=== PATIENT | male | born 1930 | race Caucasian/White ===

== ENCOUNTER 2018-03-29 11:01 | Emergency (ER) | payer MEDICARE ==
[2018-03-29 11:15] VITALS: TEMP 98.5
--- NOTE | 2018-03-29 11:46 | ED ---
General Adult HPI - General Chief complaint: Shortness of Breath Stated complaint: Possible pneumonia Time Seen by Provider: 03/29/18 11:10 Source: patient, RN notes reviewed Mode of arrival: wheelchair Limitations: no limitations - History of Present Illness Initial comments: This is an 87-year-old male presents emergency department with severe dementia his caregiver gives all the history. Patient has history of COPD. Caregiver states that he has been coughing since Thursday and there is been no sputum production. Patient is not short of breath but occasionally she does hear him wheeze. She states she's not complained of any pain. There's been no fever chills. Aside from a cough which is dry cough the caregiver states the patient is acting at his baseline. - Related Data Home Medications Medication Instructions Recorded Confirmed Aspirin 81 mg PO DAILY 12/08/15 03/29/18 Cholecalciferol [Vitamin D3] 5,000 unit PO DAILY 12/08/15 03/29/18 Cyanocobalamin [Vitamin B-12] 1,000 mcg PO DAILY 12/08/15 03/29/18 Isosorbide Mononitrate [Isosorbide 30 mg PO DAILY 12/08/15 03/29/18 Mononitrate ER] Memantine [Namenda] 10 mg PO BID 12/08/15 03/29/18 Vit C/E/Zn/Coppr/Lutein/Zeaxan 1 cap PO DAILY 12/08/15 03/29/18 [Preservision Areds 2 Softgel] Ferrous Sulfate [Iron (65 MG 325 mg PO DAILY 10/10/16 03/29/18 Elemental)] Atorvastatin [Lipitor] 40 mg PO DAILY 03/29/18 03/29/18 Budesonide [Pulmicort] 0.5 mg INHALATION RT-BID 03/29/18 03/29/18 Clotrimazole Cream [Lotrimin Cream] 1 applic TOPICAL BID 03/29/18 03/29/18 Formoterol Fumarate [Perforomist] 20 mcg INHALATION RT-BID 03/29/18 03/29/18 Ipratropium-Albuterol Nebulize 3 ml INHALATION RT-QID PRN 03/29/18 03/29/18 [Duoneb 0.5 mg-3 mg/3 ml Soln] amLODIPine [Norvasc] 5 mg PO DAILY 03/29/18 03/29/18 Previous Rx's Medication Instructions Recorded Tamsulosin [Flomax] 0.4 mg PO DAILY #30 cap 10/11/16 ALPRAZolam [Xanax] 0.25 mg PO BID PRN #30 tablet 10/29/16 Azithromycin [Zithromax Tri-Krunal] 500 mg PO DAILY #3 tab 03/29/18 Allergies Allergy/AdvReac Type Severity Reaction Status Date / Time No Known Allergies Allergy Verified 03/29/18 11:25 Review of Systems ROS Statement: Those systems with pertinent positive or pertinent negative responses have been documented in the HPI. ROS Other: All systems not noted in ROS Statement are negative. Past Medical History Past Medical History: COPD, CVA/TIA, Dementia, GERD/Reflux, Hyperlipidemia, Hypertension, Myocardial Infarction ([place]) Additional Past Medical History / Comment(s): dementia diagnosed 2014, acute renal failure , e cloi in blood 12-08-15(per micro) Last Myocardial Infarction Date:: 2000 History of Any Multi-Drug Resistant Organisms: None Reported Past Surgical History: Coronary Bypass/CABG, Hernia Repair Additional Past Surgical History / Comment(s): heart surgery in 2001, lt ear titanium implant, lt scalp skin lesion removed wed-no result on it yet Past Anesthesia/Blood Transfusion Reactions: No Reported Reaction Past Psychological History: No Psychological Hx Reported Smoking Status: Former smoker Past Alcohol Use History: None Reported Past Drug Use History: None Reported - Past Family History Father Family Medical History: Congestive Heart Failure (CHF) Mother Family Medical History: Pneumonia Additional Family Medical History / Comment(s): mom lived to be age 94 from complications of pne General Exam - General Exam Comments Initial Comments: GENERAL: Patient is well-developed and well-nourished. Patient is nontoxic and well- hydrated and is in no acute distress. ENT: Neck is soft and supple. No significant lymphadenopathy is noted. Oropharynx is clear. Moist mucous membranes. Neck has full range of motion without eliciting any pain. EYES: The sclera were anicteric and conjunctiva were pink and moist. Extraocular movements were intact and pupils were equal round and reactive to light. Eyelids were unremarkable. PULMONARY: Unlabored respirations. Good breath sounds bilaterally. No audible rales rhonchi or wheezing was noted. CARDIOVASCULAR: There is a regular rate and rhythm without any murmurs gallops or rubs. ABDOMEN: Soft and nontender with normal bowel sounds. No palpable organomegaly was noted. There is no palpable pulsatile mass. SKIN: Skin is clear with no lesions or rashes and otherwise unremarkable. NEUROLOGIC: Patient is alert and oriented times one. Cranial nerves II through XII are grossly intact. Motor and sensory are also intact. Normal speech, volume and content. Symmetrical smile. MUSCULOSKELETAL: Normal extremities with adequate strength and full range of motion. No lower extremity swelling or edema. No calf tenderness. LYMPHATICS: No significant lymphadenopathy is noted Limitations: no limitations Course Vital Signs 03/29/18 11:10 Temperature 98.5 F Pulse Rate 90 Respiratory 22 Rate Blood Pressure 99/56 O2 Sat by Pulse 93 L Oximetry Medical Decision Making - Medical Decision Making EKG shows a wide complex rhythm at 74 bpm QRS is 136 QT interval 38 QTC is 4: 30. Patient's EKG has a right bundle branch block. I compared to an old EKG there are no acute changes noted. Chest x-ray shows no acute abnormality and reviewed this x-ray with Dr. Wise. Review the patient gram of María. Since patient on Zithromax. - Lab Data Result diagrams: 03/29/18 12:05 03/29/18 12:05 Lab Results 03/29/18 03/29/18 Range/Units 12:05 12:05 WBC 9.7 (3.8-10.6) k/uL RBC 4.43 (4.30-5.90) m/uL Hgb 14.0 (13.0-17.5) gm/dL Hct 42.0 (39.0-53.0) % MCV 94.8 (80.0-100.0) fL MCH 31.5 (25.0-35.0) pg MCHC 33.2 (31.0-37.0) g/dL RDW 13.1 (11.5-15.5) % Plt Count 119 L (150-450) k/uL Neutrophils % 85 % Lymphocytes % 6 % Monocytes % 8 % Eosinophils % 1 % Basophils % 0 % Neutrophils # 8.3 H (1.3-7.7) k/uL Lymphocytes # 0.5 L (1.0-4.8) k/uL Monocytes # 0.7 (0-1.0) k/uL Eosinophils # 0.1 (0-0.7) k/uL Basophils # 0.0 (0-0.2) k/uL Sodium 147 H (137-145) mmol/L Potassium 3.8 (3.5-5.1) mmol/L Chloride 108 H (98-107) mmol/L Carbon Dioxide 27 (22-30) mmol/L Anion Gap 12 mmol/L BUN 27 H (9-20) mg/dL Creatinine 1.00 (0.66-1.25) mg/dL Est GFR (CKD-EPI)AfAm 77 (>60 ml/min/1.73 sqM) Est GFR (CKD-EPI)NonAf 67 (>60 ml/min/1.73 sqM) Glucose 137 H (74-99) mg/dL Calcium 8.9 (8.4-10.2) mg/dL Total Bilirubin 0.9 (0.2-1.3) mg/dL AST 31 (17-59) U/L ALT 37 (21-72) U/L Alkaline Phosphatase 93 (38-126) U/L Total Protein 5.6 L (6.3-8.2) g/dL Albumin 3.4 L (3.5-5.0) g/dL Disposition Clinical Impression: Acute bronchitis Disposition: HOME SELF-CARE Instructions: Acute Bronchitis (ED) Prescriptions: Azithromycin [Zithromax Tri-Krunal] 500 mg PO DAILY #3 tab Is patient prescribed a controlled substance at d/c from ED?: No Referrals: Martín Vanessa MD [Primary Care Provider] - 1-2 days Time of Disposition: 13:16
[2018-03-29 12:26] LABS: Basophils % (A) 0 %; Eosinophils # (A) 0.1 k/uL (0-0.7); Eosinophils % (A) 1 %; Lymphocytes # (A) 0.5 k/uL (1.0-4.8); Lymphocytes % (A) 6 %; MCH 31.5 pg (25.0-35.0); MCHC 33.2 g/dL (31.0-37.0); MCV 94.8 fL (80.0-100.0); Monocytes # (A) 0.7 k/uL (0-1.0); Monocytes % (A) 8 %; Neutrophils # (A) 8.3 k/uL (1.3-7.7); Neutrophils % (A) 85 %; Platelet Count 119 k/uL (150-450); RBC 4.43 m/uL (4.30-5.90); RDW 13.1 % (11.5-15.5); WBC 9.7 k/uL (3.8-10.6)
--- NOTE | 2018-03-29 12:33 | XR ---
EXAMINATION TYPE: XR chest 2V DATE OF EXAM: 03/29/2018 COMPARISON: 10/27/2016 HISTORY: Cough and wheezing with concern for pneumonia TECHNIQUE: Frontal and lateral views of the chest are obtained. FINDINGS: There is pulmonary hyperinflation and biapical lucency relating to underlying COPD. Enlarg ement of the main pulmonary arteries is suggestive of underlying pulmonary hypertension. Post CABG ch anges are seen the chest without cardiomegaly. Strand-like linear opacity within the right infrahilar region is slightly more pronounced on the prior exam of 10/27/2016 and could represent atelectasis or early developing pneumonia. No confluent consolidation. Generalized osseous demineralization is pres ent. IMPRESSION: Patchy right infrahilar density, new from the comparison of 2016, concerning for early d eveloping pneumonia. Background extensive emphysema and findings suggesting underlying pulmonary frederick rial hypertension are noted.
[2018-03-29 12:37] LABS: Albumin 3.4 g/dL (3.5-5.0); Potassium 3.8 mmol/L (3.5-5.1); Total Protein 5.6 g/dL (6.3-8.2)
[2018-03-29 12:39] LABS: Calcium 8.9 mg/dL (8.4-10.2); Total Bilirubin 0.9 mg/dL (0.2-1.3)
[2018-03-29] MEDS ORDERED: cefTRIAXone IN SWFI 1,000 MG/10 ML SYRINGE IVP STA (13:17)
[2018-03-29 13:39] VITALS: BP 121/67; PULSE 84
[2018-03-29 14:04] VITALS: RESP 16
== END 2018-03-29 13:42 | disposition home or self-care (01) ==
LOC: EC 11:01
DX: J20.9 Acute bronchitis, unspecified (principal); J44.0 Chronic obstructive pulmonary disease with (acute) lower respiratory infection; J44.9 Chronic obstructive pulmonary disease, unspecified; I45.10 Unspecified right bundle-branch block; F03.90 Unspecified dementia, unspecified severity, without behavioral disturbance, psychotic disturbance, mood disturbance, and anxiety; E78.5 Hyperlipidemia, unspecified; I10 Essential (primary) hypertension; I25.10 Atherosclerotic heart disease of native coronary artery without angina pectoris; Z86.73 Personal history of transient ischemic attack (TIA), and cerebral infarction without residual deficits; Z95.1 Presence of aortocoronary bypass graft; Z79.51 Long term (current) use of inhaled steroids; Z79.82 Long term (current) use of aspirin; Z79.899 Other long term (current) drug therapy; Z87.891 Personal history of nicotine dependence
CPT/HCPCS: 99285; 96374; 36415; 93005; 80053; 85025; 71046; J0696

== ENCOUNTER 2018-09-16 20:33 | Inpatient (IN) | payer MEDICARE ==
--- NOTE | 2018-09-16 21:53 | ED ---
General Adult HPI - General Chief complaint: Shortness of Breath Stated complaint: SANCHEZ,hip pain Time Seen by Provider: 09/16/18 21:29 Source: patient Mode of arrival: EMS Limitations: altered mental status (Dementia) - History of Present Illness Initial comments: This patient is an 87-year-old man with history of moderately severe dementia, coming to be evaluated after he had a fall tonight. The history is from the patient's , who states that he had gotten up and then fallen onto his right side and then was not able to walk due to right hip pain. She does not believe he had any other injury. The patient does indicate pain to the right hip. He is denying other pains. At the initial history and physical exam he declines analgesics. When asked, the patient's only complaint is that he is feeling a little short of breath. They state that he has history of emphysema and possibly some fibrosis and that he does see Dr. Sheppard. Onset/Timin -: hour(s) Location: right, lower extremity Quality: aching Consistency: constant Improves with: immobilization Worsens with: movement Associated Symptoms: denies other symptoms Treatments Prior to Arrival: none - Related Data Home Medications Medication Instructions Recorded Confirmed Aspirin 81 mg PO DAILY 12/08/15 09/16/18 Cyanocobalamin [Vitamin B-12] 1,000 mcg PO DAILY 12/08/15 09/16/18 Isosorbide Mononitrate [Isosorbide 30 mg PO DAILY 12/08/15 09/16/18 Mononitrate ER] Memantine [Namenda] 10 mg PO BID 12/08/15 09/16/18 Vit C/E/Zn/Coppr/Lutein/Zeaxan 1 cap PO DAILY 12/08/15 09/16/18 [Preservision Areds 2 Softgel] Ferrous Sulfate [Iron (65 MG 325 mg PO DAILY 10/10/16 09/16/18 Elemental)] Atorvastatin [Lipitor] 40 mg PO DAILY 03/29/18 09/16/18 Budesonide [Pulmicort] 0.5 mg INHALATION RT-BID 03/29/18 09/16/18 Clotrimazole Cream [Lotrimin Cream] 1 applic TOPICAL BID 03/29/18 09/16/18 Formoterol Fumarate [Perforomist] 20 mcg INHALATION RT-BID 03/29/18 09/16/18 Ipratropium-Albuterol Nebulize 3 ml INHALATION RT-QID PRN 03/29/18 09/16/18 [Duoneb 0.5 mg-3 mg/3 ml Soln] amLODIPine [Norvasc] 5 mg PO DAILY 03/29/18 09/16/18 Previous Rx's Medication Instructions Recorded Tamsulosin [Flomax] 0.4 mg PO DAILY #30 cap 10/11/16 Allergies Allergy/AdvReac Type Severity Reaction Status Date / Time No Known Allergies Allergy Verified 09/16/18 22:11 Review of Systems ROS Statement: Those systems with pertinent positive or pertinent negative responses have been documented in the HPI. ROS Other: All systems not noted in ROS Statement are negative. Limitations: ROS unobtainable due to patients medical condition (Dementia) Constitutional: Denies: fever Respiratory: Reports: dyspnea. Denies: cough, wheezes, hemoptysis Cardiovascular: Denies: chest pain, syncope Gastrointestinal: Denies: abdominal pain, vomiting, diarrhea Genitourinary: Denies: dysuria Musculoskeletal: Reports: arthralgia (Right hip pain). Denies: back pain Skin: Denies: rash Neurological: Denies: headache, weakness Past Medical History Past Medical History: COPD, CVA/TIA, Dementia, GERD/Reflux, Hyperlipidemia, Hypertension, Myocardial Infarction ([place]) Additional Past Medical History / Comment(s): dementia diagnosed 2014, acute renal failure , e cloi in blood 12-08-15(per micro) Last Myocardial Infarction Date:: 2000 History of Any Multi-Drug Resistant Organisms: None Reported Past Surgical History: Coronary Bypass/CABG, Hernia Repair Additional Past Surgical History / Comment(s): heart surgery in 2001, lt ear titanium implant, lt scalp skin lesion removed wed-no result on it yet Past Anesthesia/Blood Transfusion Reactions: No Reported Reaction Past Psychological History: No Psychological Hx Reported Smoking Status: Former smoker Past Alcohol Use History: None Reported Past Drug Use History: None Reported - Past Family History Father Family Medical History: Congestive Heart Failure (CHF) Mother Family Medical History: Pneumonia Additional Family Medical History / Comment(s): mom lived to be age 94 from complications of pne General Exam Limitations: altered mental status, physical limitation General appearance: alert, in no apparent distress Head exam: Present: atraumatic, normocephalic Eye exam: Present: normal appearance, PERRL, EOMI. Absent: scleral icterus, conjunctival injection ENT exam: Present: normal oropharynx Neck exam: Present: normal inspection, full ROM. Absent: tenderness Respiratory exam: Present: respiratory distress (Mild tachypnea), wheezes, decreased breath sounds. Absent: rales, rhonchi, stridor, chest wall tenderness , accessory muscle use Cardiovascular Exam: Present: regular rate, normal rhythm, normal heart sounds. Absent: systolic murmur, diastolic murmur, rubs, gallop GI/Abdominal exam: Present: soft. Absent: distended, tenderness, guarding, rebound, rigid, mass Extremities exam: Present: normal inspection, tenderness (Right hip), normal capillary refill. Absent: full ROM (Patient declining to move the right hip), pedal edema, calf tenderness Back exam: Absent: CVA tenderness (R), CVA tenderness (L), vertebral tenderness Neurological exam: Present: alert. Absent: motor sensory deficit Skin exam: Present: warm, dry, intact, normal color. Absent: rash Course Vital Signs 09/16/18 09/16/18 09/16/18 21:16 21:22 22:29 Temperature 97.6 F Pulse Rate 103 H 104 H Respiratory 26 H 26 H 18 Rate Blood Pressure 171/89 O2 Sat by Pulse 94 L Oximetry 09/16/18 22:35 Temperature Pulse Rate 107 H Respiratory 18 Rate Blood Pressure O2 Sat by Pulse Oximetry EKG Findings - EKG Results: EKG: interpreted by ERMD, sinus rhythm (With PVCs, rate 103) EKG shows: tachycardia - Blocks, [place], Hypertrophy, ST Abn: AV and intraventricular conduction: right bundle branch block (fixed/ intermittent, complete/incomplete) - MO, Pacemaker, Normal: Myocardial infarction: inferior MO (old age indeterminate) Medical Decision Making - Medical Decision Making This patient is an 87-year-old man brought for evaluation after fall. He had a low mechanism injury, ground-level fall with no other apparent trauma. He does have isolated subcapital femoral neck fracture of the right hip. Patient be admitted with orthopedics consult also with pulmonology consult given his underlying lung disease. - Lab Data Result diagrams: 09/16/18 21:11 Lab Results 09/16/18 Range/Units 21:11 WBC 9.7 (3.8-10.6) k/uL RBC 4.23 L (4.30-5.90) m/uL Hgb 13.4 (13.0-17.5) gm/dL Hct 41.1 (39.0-53.0) % MCV 97.1 (80.0-100.0) fL MCH 31.7 (25.0-35.0) pg MCHC 32.6 (31.0-37.0) g/dL RDW 13.6 (11.5-15.5) % Plt Count 109 L (150-450) k/uL Neutrophils % 85 % Lymphocytes % 7 % Monocytes % 6 % Eosinophils % 1 % Basophils % 0 % Neutrophils # 8.3 H (1.3-7.7) k/uL Lymphocytes # 0.7 L (1.0-4.8) k/uL Monocytes # 0.5 (0-1.0) k/uL Eosinophils # 0.1 (0-0.7) k/uL Basophils # 0.0 (0-0.2) k/uL Disposition Clinical Impression: Acute exacerbation of chronic obstructive airways disease, Closed right hip fracture Disposition: ADMITTED IP TO THIS HOSP Condition: Poor Referrals: Seth Sheppard DO [Primary Care Provider] - 1-2 days
[2018-09-16] MEDS ORDERED: ALBUTEROL NEBULIZED 2.5 MG/3 ML INHALATION STA (22:20)
--- NOTE | 2018-09-16 22:23 | XR ---
EXAMINATION TYPE: XR chest 2V DATE OF EXAM: 09/16/2018 COMPARISON: 03/29/2018 HISTORY: Difficulty breathing TECHNIQUE: Frontal and lateral views of the chest are obtained. FINDINGS: There is no heart failure nor confluent pneumonic infiltrate. There is slight coarsening o f interstitial markings. There are sternal wires. There are chest leads. There is no evidence of pleu ral effusion. IMPRESSION: COPD and pulmonary fibrosis. No acute lung disease. No change.
--- NOTE | 2018-09-16 22:24 | XR ---
EXAMINATION TYPE: XR Hip Complete RT DATE OF EXAM: 09/16/2018 COMPARISON: NONE HISTORY: Fall. Pain TECHNIQUE: 2 views FINDINGS: There is nondisplaced slightly impacted subcapital fracture right femur. There is no disloc ation. Acetabulum appears intact. IMPRESSION: Acute subcapital fracture right femur.
[2018-09-16] MEDS ORDERED: MORPHINE SULFATE 4 MG/ML SYRINGE IV PRN (22:41)
[2018-09-16] MEDS ORDERED: NALOXONE 0.4 MG/ML 1 ML VIAL IV PRN (22:41)
[2018-09-16 22:44] LABS: Basophils % (A) 0 %; Eosinophils # (A) 0.1 k/uL (0-0.7); Eosinophils % (A) 1 %; HCT 41.1 % (39.0-53.0); HGB 13.4 gm/dL (13.0-17.5); Lymphocytes # (A) 0.7 k/uL (1.0-4.8); Lymphocytes % (A) 7 %; MCH 31.7 pg (25.0-35.0); MCHC 32.6 g/dL (31.0-37.0); MCV 97.1 fL (80.0-100.0); Mean Platelet Volume 8.5; Monocytes # (A) 0.5 k/uL (0-1.0); Monocytes % (A) 6 %; Neutrophils # (A) 8.3 k/uL (1.3-7.7); Neutrophils % (A) 85 %; Platelet Count 109 k/uL (150-450); RBC 4.23 m/uL (4.30-5.90); RDW 13.6 % (11.5-15.5); WBC 9.7 k/uL (3.8-10.6)
[2018-09-16 22:54] LABS: Calcium 7.6 mg/dL (8.4-10.2); Potassium 3.8 mmol/L (3.5-5.1); Total Bilirubin 0.6 mg/dL (0.2-1.3); Total Protein 5.3 g/dL (6.3-8.2)
[2018-09-16 22:59] LABS: INR 1.2 (<1.2); Partial Thromboplastin Time 23.4 sec (22.0-30.0); Prothrombin Time 11.8 sec (9.0-12.0)
[2018-09-16] MEDS: SODIUM CHLORIDE 0.9% 1,000 ML IV SCH (22:59)
[2018-09-16 23:03] LABS: Creatine Kinase 165 U/L (55-170)
[2018-09-16 23:16] LABS: Creatine Kinase MB 3.3 ng/mL (0.0-2.4); Troponin I <0.012 ng/mL (0.000-0.034)
[2018-09-17] MEDS: ACETAMINOPHEN TAB 325 MG TAB PO PRN ×3 (00:02→18:06)
[2018-09-17 01:11] LABS: Appearance,Urine Clear (Clear); Bilirubin,Urine Negative (Negative); Blood,Urine Large (Negative); Color,Urine Yellow; Glucose,Urine (UA) Negative (Negative); Ketones,Urine 1+ (Negative); Leukocyte Esterase,Urine Negative (Negative); Mucus,Urine Rare /hpf; Nitrite,Urine Negative (Negative); PH, Urine 5.5 (5.0-8.0); Protein,Urine Trace (Negative); RBC,Urine >182 /hpf (0-5); Specific Gravity,Urine 1.017 (1.001-1.035); Urobilinogen,Urine <2.0 mg/dL (<2.0)
[2018-09-17] MEDS: FORMOTEROL FUMARATE 20 MCG/2 ML NEBU INHALATION SCH ×2 (07:16→20:05)
[2018-09-17] MEDS: BUDESONIDE 0.5 MG/2 ML NEBU INHALATION SCH ×2 (07:16→20:05)
[2018-09-17] MEDS: IPRATROPIUM-ALBUTEROL 3 ML NEB INHALATION PRN ×4 (07:16→21:04)
[2018-09-17] MEDS ORDERED: amLODIPine 5 MG TAB PO SCH (09:00)
--- NOTE | 2018-09-17 09:25 | CT ---
EXAMINATION TYPE: CT hip RT wo con DATE OF EXAM: 09/17/2018 COMPARISON: 09/16/2018 x-ray HISTORY: Known hip fracture, assess for displacement for preop CT DLP: 247.3 mGycm Automated exposure control for dose reduction was used. FINDINGS: There is a nondisplaced subcapital fracture of the right hip. There is some rotation of the femoral h ead in relation to the neck. No additional fractures are evident. Large fecal bolus is noted at the rectum. IMPRESSION: 1. SUBCAPITAL FRACTURE RIGHT HIP. 2. SOME ROTATION OF THE FEMORAL HEAD IN RELATION TO THE FEMORAL NECK.
[2018-09-17] MEDS: ASPIRIN 81 MG PO SCH (09:38)
[2018-09-17] MEDS: ATORVASTATIN 40 MG TAB PO SCH (09:38)
[2018-09-17] MEDS: MEMANTINE 10 MG TAB PO SCH ×2 (09:39→20:33)
[2018-09-17] MEDS: FAMOTIDINE 20 MG TAB PO SCH ×2 (09:39→20:32)
[2018-09-17] MEDS: TAMSULOSIN 0.4 MG CAP.ER.24H PO SCH (09:39)
[2018-09-17] MEDS: CYANOCOBALAMIN 500 MCG TAB PO SCH (09:39)
[2018-09-17] MEDS: ISOSORBIDE MONONITRATE ER 30 MG TAB.ER.24H PO SCH (09:39)
[2018-09-17] MEDS: FERROUS SULFATE 325 MG TAB PO SCH (09:39)
[2018-09-17 10:12] VITALS: BMI 17.5
--- NOTE | 2018-09-17 10:54 | P.CNOR ---
History of Present Illness - HPI Consult date: 09/17/18 Requesting physician: Mitul Anglin Consult reason: fracture History of present illness: Patient is an 87-year-old male seen at bedside this morning. He has a known history of moderately severe dementia. He apparently fell yesterday on his right hip. He is not very cooperative during the interview today. He does not believe he has a hip fracture which was seen on x-rays taken while in the emergency department. He does acknowledge he has right hip pain. He denies radicular symptoms including numbness or tingling. He has no other complaints. Review of Systems All systems: negative Constitutional: Denies chills, Denies fever Eyes: denies blurred vision, denies pain Ears, nose, mouth and throat: Denies headache, Denies sore throat Cardiovascular: Denies chest pain, Denies shortness of breath Respiratory: Denies cough Gastrointestinal: Denies abdominal pain, Denies diarrhea, Denies nausea, Denies vomiting Musculoskeletal: Denies myalgias Integumentary: Denies pruritus, Denies rash Neurological: Denies numbness, Denies weakness Psychiatric: Denies anxiety, Denies depression Endocrine: Denies fatigue, Denies weight change Past Medical History Past Medical History: COPD, CVA/TIA, Dementia, GERD/Reflux, Hyperlipidemia, Hypertension, Myocardial Infarction ([place]) Additional Past Medical History / Comment(s): dementia diagnosed 2014, acute renal failure , e cloi in blood 12-08-15, sepsis(per micro) Last Myocardial Infarction Date:: 2000 History of Any Multi-Drug Resistant Organisms: None Reported Past Surgical History: Coronary Bypass/CABG, Hernia Repair Additional Past Surgical History / Comment(s): heart surgery in 2001, lt ear titanium implant, lt scalp skin lesion removed wed-no result on it yet, four hernia repair Past Anesthesia/Blood Transfusion Reactions: No Reported Reaction Past Psychological History: No Psychological Hx Reported Smoking Status: Former smoker Past Alcohol Use History: None Reported Additional Past Alcohol Use History / Comment(s): smoked x 50 years, 1 ppd, quit 2000 Past Drug Use History: None Reported - Past Family History Father Family Medical History: Congestive Heart Failure (CHF) Mother Family Medical History: Pneumonia Additional Family Medical History / Comment(s): mom lived to be age 94 from complications of pne Medications and Allergies Home Medications Medication Instructions Recorded Confirmed Type Aspirin 81 mg PO DAILY 12/08/15 09/16/18 History Cyanocobalamin [Vitamin B-12] 1,000 mcg PO DAILY 12/08/15 09/16/18 History Isosorbide Mononitrate [Isosorbide 30 mg PO DAILY 12/08/15 09/16/18 History Mononitrate ER] Memantine [Namenda] 10 mg PO BID 12/08/15 09/16/18 History Vit C/E/Zn/Coppr/Lutein/Zeaxan 1 cap PO DAILY 12/08/15 09/16/18 History [Preservision Areds 2 Softgel] Ferrous Sulfate [Iron (65 MG 325 mg PO DAILY 10/10/16 09/16/18 History Elemental)] Tamsulosin [Flomax] 0.4 mg PO DAILY #30 cap 10/11/16 09/16/18 Rx Atorvastatin [Lipitor] 40 mg PO DAILY 03/29/18 09/16/18 History Budesonide [Pulmicort] 0.5 mg INHALATION RT-BID 03/29/18 09/16/18 History Clotrimazole Cream [Lotrimin Cream] 1 applic TOPICAL BID 03/29/18 09/16/18 History Formoterol Fumarate [Perforomist] 20 mcg INHALATION RT-BID 03/29/18 09/16/18 History Ipratropium-Albuterol Nebulize 3 ml INHALATION RT-QID PRN 03/29/18 09/16/18 History [Duoneb 0.5 mg-3 mg/3 ml Soln] amLODIPine [Norvasc] 5 mg PO DAILY 03/29/18 09/16/18 History Allergies Allergy/AdvReac Type Severity Reaction Status Date / Time No Known Allergies Allergy Verified 09/16/18 22:11 Physical Examination During the examination this morning he is agitated. He does not desire for me to inspect his right hip. Distally it appears benign with no wounds or lacerations. Range of motion of the right hip is not tested. Motor and sensation appears to be grossly intact throughout the right lower extremity. Calf is soft and nontender. 2+ dorsalis pedis pulse and less than 2 second capillary refill is present. Results X-rays of the pelvis and right hip show a subcapital impacted right femur fracture. - Labs Labs: Abnormal Lab Results - Last 24 Hours (Table) 09/16/18 09/16/18 09/16/18 Range/Units 21:11 21:11 21:11 RBC 4.23 L (4.30-5.90) m/uL Plt Count 109 L (150-450) k/uL Neutrophils # 8.3 H (1.3-7.7) k/uL Lymphocytes # 0.7 L (1.0-4.8) k/uL INR (<1.2) Chloride 112 H (98-107) mmol/L BUN 25 H (9-20) mg/dL Glucose 100 H (74-99) mg/dL Calcium 7.6 L (8.4-10.2) mg/dL CK-MB (CK-2) 3.3 H (0.0-2.4) ng/mL Total Protein 5.3 L (6.3-8.2) g/dL Albumin 3.0 L (3.5-5.0) g/dL Urine Protein (Negative) Urine Ketones (Negative) Urine Blood (Negative) Urine RBC (0-5) /hpf Urine Mucus (None) /hpf 09/16/18 09/17/18 Range/Units 21:11 00:57 RBC (4.30-5.90) m/uL Plt Count (150-450) k/uL Neutrophils # (1.3-7.7) k/uL Lymphocytes # (1.0-4.8) k/uL INR 1.2 H (<1.2) Chloride (98-107) mmol/L BUN (9-20) mg/dL Glucose (74-99) mg/dL Calcium (8.4-10.2) mg/dL CK-MB (CK-2) (0.0-2.4) ng/mL Total Protein (6.3-8.2) g/dL Albumin (3.5-5.0) g/dL Urine Protein Trace H (Negative) Urine Ketones 1+ H (Negative) Urine Blood Large H (Negative) Urine RBC >182 H (0-5) /hpf Urine Mucus Rare H (None) /hpf H & H 09/16/18 Range/Units 21:11 Hgb 13.4 (13.0-17.5) gm/dL Hct 41.1 (39.0-53.0) % Coagulation 09/16/18 Range/Units 21:11 INR 1.2 H (<1.2) Result Diagrams: 09/16/18 21:11 09/16/18 21:11 Assessment and Plan (1) Closed right hip fracture Narrative/Plan: Patient has a subcapital femur fracture on the right which will require either percutaneous pinning versus hemiarthroplasty based on CT findings which are pending. He will also need medical clearance and consent from power of litigation attorney as he has dementia and fairly uncooperative. Patient will be reviewed with Dr. Anglin and further recommendations will be made as appropriate. Current Visit: Yes Status: Acute Code(s): S72.001A - FRACTURE OF UNSP PART OF NECK OF RIGHT FEMUR, INIT SNOMED Code(s): 107341308 Time with Patient: Less than 30
--- NOTE | 2018-09-17 12:19 | P.HPIM ---
History of Present Illness This is a pleasant 87 years old female with past medical history of COPD, CVA/ TIA, dementia, GERD, hyperlipidemia, essential hypertension, coronary artery disease, status post CABG who follows up with Dr. Sarmiento., who presents with fall with hip fracture. Also patient noted to have hematuria. Patient is poor historian and could not provide history even at baseline. However his more agitated. Patient could not provide information so it was taken up from the medical staff and at bedside. As per patient has baseline dementia and sometimes he can recognize the and sometimes not. However he can ask for his wound and cleaning himself and actually he can do these things by himself and yesterday he was walking to the living room when the heard him fall. She came to the room and he was fully awake but he could not movement was complaining of pain is his right hip area. So she called the doctor and brought him to the emergency room. When he found he has a right hip fracture, associated with hematuria. As per patient was following up with Dr. Vaughn urologist before for urinary retention but he did not have hematuria before. Medications are reviewed including Tylenol 650 mg Dunob 0.5-3 mg, aspirin 81 mg , Norvasc 5 mg, Pulmicort 0.5 mg, clotrimazole cream, vitamin B12 1000 g, Pepcid 20 mg, ferrous sulfate 325 mg, formoterol 20 g, Imdur 30 mg, Namenda 10 mg, morphine sulfate 4 mg, sodium chloride at 75 mL/h, Flomax 0.4 mg Review of Systems n/a patient is unable to provide information but is complaining from pain in his right hip, see above Past Medical History Past Medical History: COPD, CVA/TIA, Dementia, GERD/Reflux, Hyperlipidemia, Hypertension, Myocardial Infarction ([place]) Additional Past Medical History / Comment(s): dementia diagnosed 2014, acute renal failure , e cloi in blood 12-08-15, sepsis(per micro) Last Myocardial Infarction Date:: 2000 History of Any Multi-Drug Resistant Organisms: None Reported Past Surgical History: Coronary Bypass/CABG, Hernia Repair Additional Past Surgical History / Comment(s): heart surgery in 2001, lt ear titanium implant, lt scalp skin lesion removed wed-no result on it yet, four hernia repair Past Anesthesia/Blood Transfusion Reactions: No Reported Reaction Past Psychological History: No Psychological Hx Reported Smoking Status: Former smoker Past Alcohol Use History: None Reported Additional Past Alcohol Use History / Comment(s): smoked x 50 years, 1 ppd, quit 2000 Past Drug Use History: None Reported - Past Family History Father Family Medical History: Congestive Heart Failure (CHF) Mother Family Medical History: Pneumonia Additional Family Medical History / Comment(s): mom lived to be age 94 from complications of pne Medications and Allergies Home Medications Medication Instructions Recorded Confirmed Type Aspirin 81 mg PO DAILY 12/08/15 09/16/18 History Cyanocobalamin [Vitamin B-12] 1,000 mcg PO DAILY 12/08/15 09/16/18 History Isosorbide Mononitrate [Isosorbide 30 mg PO DAILY 12/08/15 09/16/18 History Mononitrate ER] Memantine [Namenda] 10 mg PO BID 12/08/15 09/16/18 History Vit C/E/Zn/Coppr/Lutein/Zeaxan 1 cap PO DAILY 12/08/15 09/16/18 History [Preservision Areds 2 Softgel] Ferrous Sulfate [Iron (65 MG 325 mg PO DAILY 10/10/16 09/16/18 History Elemental)] Tamsulosin [Flomax] 0.4 mg PO DAILY #30 cap 10/11/16 09/16/18 Rx Atorvastatin [Lipitor] 40 mg PO DAILY 03/29/18 09/16/18 History Budesonide [Pulmicort] 0.5 mg INHALATION RT-BID 03/29/18 09/16/18 History Clotrimazole Cream [Lotrimin Cream] 1 applic TOPICAL BID 03/29/18 09/16/18 History Formoterol Fumarate [Perforomist] 20 mcg INHALATION RT-BID 03/29/18 09/16/18 History Ipratropium-Albuterol Nebulize 3 ml INHALATION RT-QID PRN 03/29/18 09/16/18 History [Duoneb 0.5 mg-3 mg/3 ml Soln] amLODIPine [Norvasc] 5 mg PO DAILY 03/29/18 09/16/18 History Allergies Allergy/AdvReac Type Severity Reaction Status Date / Time No Known Allergies Allergy Verified 09/16/18 22:11 Physical Exam Vitals: Vital Signs Temp Pulse Pulse Resp BP BP Pulse Ox 09/17/18 09:28 109 H 20 181/71 94 L 09/17/18 07:39 104 H 09/17/18 07:28 104 H 09/17/18 07:17 100 09/16/18 23:46 97.3 F L 84 16 134/80 09/16/18 22:50 104 H 28 H 126/82 94 L 09/16/18 22:35 107 H 18 09/16/18 22:29 104 H 18 09/16/18 21:22 26 H 09/16/18 21:16 97.6 F 103 H 26 H 171/89 94 L Intake and Output 09/16/18 09/17/18 09/17/18 22:59 06:59 14:59 Intake Total 600 Output Total 500 Balance 100 Intake: Intake, IV Titration 600 Amount Sodium Chloride 0.9% 1, 600 000 ml @ 75 mls/hr IV . [id number] [facility] Rx#:[id number] Output: Urine 500 Uretheral (Antonio) 500 Other: Weight 53.977 kg 53.977 kg -GENERAL: The patient is alert and oriented x0, not in any acute distress. HEENT: Pupils are round and equally reacting to light. EOMI. No scleral icterus. No conjunctival pallor. Normocephalic, atraumatic. No pharyngeal erythema. No thyromegaly. CARDIOVASCULAR: S1 and S2 present. No murmurs, rubs, or gallops. PULMONARY: Chest is clear to auscultation, no wheezing or crackles. ABDOMEN: Soft, nontender, nondistended, normoactive bowel sounds. No palpable organomegaly. MUSCULOSKELETAL: No joint swelling or deformity. -EXTREMITIES: No cyanosis, clubbing, or pedal edema. , Right leg is short and externally rotated Nexternal EUROLOGICAL: Gross neurological examination did not reveal any focal deficits. SKIN: No rashes. Results CBC & Chem 7: 09/16/18 21:11 09/16/18 21:11 Labs: Abnormal Lab Results - Last 24 Hours (Table) 09/16/18 09/16/18 09/16/18 Range/Units 21:11 21:11 21:11 RBC 4.23 L (4.30-5.90) m/uL Plt Count 109 L (150-450) k/uL Neutrophils # 8.3 H (1.3-7.7) k/uL Lymphocytes # 0.7 L (1.0-4.8) k/uL INR (<1.2) Chloride 112 H (98-107) mmol/L BUN 25 H (9-20) mg/dL Glucose 100 H (74-99) mg/dL Calcium 7.6 L (8.4-10.2) mg/dL CK-MB (CK-2) 3.3 H (0.0-2.4) ng/mL Total Protein 5.3 L (6.3-8.2) g/dL Albumin 3.0 L (3.5-5.0) g/dL Urine Protein (Negative) Urine Ketones (Negative) Urine Blood (Negative) Urine RBC (0-5) /hpf Urine Mucus (None) /hpf 09/16/18 09/17/18 Range/Units 21:11 00:57 RBC (4.30-5.90) m/uL Plt Count (150-450) k/uL Neutrophils # (1.3-7.7) k/uL Lymphocytes # (1.0-4.8) k/uL INR 1.2 H (<1.2) Chloride (98-107) mmol/L BUN (9-20) mg/dL Glucose (74-99) mg/dL Calcium (8.4-10.2) mg/dL CK-MB (CK-2) (0.0-2.4) ng/mL Total Protein (6.3-8.2) g/dL Albumin (3.5-5.0) g/dL Urine Protein Trace H (Negative) Urine Ketones 1+ H (Negative) Urine Blood Large H (Negative) Urine RBC >182 H (0-5) /hpf Urine Mucus Rare H (None) /hpf Thrombosis Risk Factor Assmnt - Choose All That Apply Any of the Below Risk Factors Present?: Yes Each Risk Factor Represents 5 Points: Hip, pelvis, or leg fracture (< 1 month) Thrombosis Risk Factor Assessment Total Risk Factor Score: 5 Thrombosis Risk Factor Assessment Level: High Risk Assessment and Plan Assessment: Acute right hip fracture Fall Hematuria, rule out UTI Hypertension with tachycardia History of coronary artery disease, status post CABG essential ial hypertension Dementia History of CVA/TIA GERD Hyperlipidemia Plan: This is a pleasant 87 years old male who presents with fall and hip fracture. Labs and medication review. Continue with pain medication. Orthopedic consultation is appreciated planned for surgery. Patient is moderate risk for moderate surgery. Patient was started on metoprolol for his hypertension and tachycardia, cardiology consultation into his significant cardiac history. Patient has hematuria with urinary culture. Start antibiotic empirically. Will call urology consult. Continue same treatment. Continue symptomatic treatment. Resume home medication. Monitor lytes and vitals. GI and DVT prophylaxis. Further recommendation is based on the clinical course of the patient's DVT prophylaxis: Heparin hold for hematuria and surgery GI prophylaxis: Pepcid PT/OT: Pending Prognosis is guarded
--- NOTE | 2018-09-17 12:38 | CT ---
EXAMINATION TYPE: CT brain wo con DATE OF EXAM: 09/17/2018 COMPARISON: 12/08/2014 HISTORY: Altered mental status CT DLP: 1320.[address] of the brain was performed. The ventricles, basal cisterns and sulci overlying the cerebral convexities demonstrate mild to moder ate enlargement. There is no evidence for intracranial hemorrhage or sulcal effacement. There is decreased attenuation about the periventricular white matter and deep white matter of both c erebral hemispheres, compatible with chronic small vessel ischemia. Differential diagnosis does inclu de demyelination. No mass effects are seen.No midline shift. Osseous calvarium is intact. If symptoms persist consider MRI. IMPRESSION: 1. Age related atrophic and chronic small vessel ischemic change without acute intracranial process s een at this time.
[2018-09-17 13:53] LABS: Basophils % (A) 0 %; Eosinophils # (A) 0.1 k/uL (0-0.7); Eosinophils % (A) 1 %; HCT 42.4 % (39.0-53.0); Lymphocytes # (A) 0.4 k/uL (1.0-4.8); Lymphocytes % (A) 3 %; MCH 31.6 pg (25.0-35.0); MCV 95.8 fL (80.0-100.0); Mean Platelet Volume 8.8; Monocytes # (A) 0.9 k/uL (0-1.0); Monocytes % (A) 6 %; Neutrophils % (A) 90 %; Platelet Count 113 k/uL (150-450); RBC 4.43 m/uL (4.30-5.90); RDW 13.6 % (11.5-15.5); WBC 14.4 k/uL (3.8-10.6)
[2018-09-17 14:07] LABS: INR 1.2 (<1.2); Prothrombin Time 11.7 sec (9.0-12.0)
[2018-09-17 14:16] LABS: Calcium 8.9 mg/dL (8.4-10.2); Potassium 4.5 mmol/L (3.5-5.1)
[2018-09-17] MEDS ORDERED: amLODIPine 5 MG TAB PO ONE (14:40)
--- NOTE | 2018-09-17 14:42 | P.CRDCN ---
History of Present Illness History of present illness: Mr. Mejia is a pleasantly confused 87-year-old male past medical history significant for coronary artery s/p 4-vessel bypass grafting in 2001, CVA, dementia, hypertension, dyslipidemia, right bundle branch block on EKG, COPD and former nicotine dependence. He follows with Dr. Richey in the office. We have been asked to see him in consultation for pre-operative evaluation. He was home with his last night and had just finished dinner. She was in the kitchen cleaning and he was walking to the living room. She heard him fall. When she got to him he was laying on the ground in pain and was conscious. He is confused but does converse. He denies having chest pain, shortness of breath , dizziness or palpitations. The denies that he was having any such complaints prior to fall or thereafter. He suffered an acute fracture of the right femur. He has been seen in consultation by orthopedic services they're recommending either percutaneous pinning versus hemiarthroplasty based on the CT findings. His states he is having difficulty urinating. Seems to be in moderate discomfort in the lower pelvic region. Nursing is at the bedside placing a Antonio catheter. EKG reveals right bundle branch block significant amount of artifact, ST abnormalities indicative of previous infarct. Similar to previous EKGs on file. Chest x-ray indicates COPD and pulmonary fibrosis. CT brain reveals age-related atrophic and chronic small vessel ischemic change without acute process. Laboratory data reveals WBC 14.4, hemoglobin 14, platelets 113, INR 1.2, sodium 140, potassium 4.5, creatinine 1.05, magnesium 1.9, NT proBNP 198 and cardiac enzymes negative 1. Current cardiac medications include amlodipine 5 mg daily, Imdur 30 mg daily, aspirin 81 mg daily, atorvastatin 40 mg daily. He also takes Pulmicort, iron supplementation, DuoNeb, Namenda, Flomax. Most recent echocardiogram performed in the office 2016 reveals preserved left ventricular systolic function with ejection fraction 55%. Review of systems is difficult to obtain secondary to dementia and confusion. He denies all complaints. Blood pressure 181/71 heart rate 109 afebrile maintaining oxygen saturation on 3 L. GENERAL: This is a 87-year-old male in mild distress at the time of my examination. HEENT: Head is atraumatic, normocephalic. Pupils are equal, round. Sclerae anicteric. Conjunctivae are clear. Mucous membranes of the mouth are moist. Neck is supple. There is no jugular venous distention. No carotid bruit is heard. LUNGS: Coarse rhonchi noted throughout. Expiratory wheezes throughout. No rales appreciated. No chest wall tenderness is noted on palpation or with deep breathing. HEART: Regular rate and rhythm with systolic ejection murmur noted, no rubs or gallops. S1 and S2 heard. ABDOMEN: Soft, mildly tender lower abdomen nontender. Bowel sounds are heard. No organomegaly noted. EXTREMITIES: No evidence of peripheral edema and no calf tenderness noted. VASCULAR: Radial and dorsalis pedis pulses palpated, no evidence of clubbing. NEUROLOGIC: Patient is awake, alert and confused. ASSESSMENT Fall with right femur fracture History of coronary artery disease status post four-vessel bypass grafting Hypertension Dyslipidemia Dementia COPD Former nicotine dependence PLAN Obtain 2-D echocardiogram and Doppler study to assess cardiac structure and function. Increase amlodipine to 10 mg daily, give additional dose of 5 mg now. From a cardiac perspective he has no symptoms of angina and appears to be euvolemic. He is short of breath and tachyneic on exam. He would possibly benefit from a breathing treatment if he would allow. Pulmonary is also following. He is at higher risk for surgery due to his multiple co-morbid conditions. Cautious fluid administration and optimal blood pressure control is imperative. Echo will be reviewed and further recommendations will be made. Thank you kindly for this consultation. Nurse Practitioner note has been reviewed, I agree with a documented findings and plan of care. Patient was seen and examined. Past Medical History Past Medical History: COPD, CVA/TIA, Dementia, GERD/Reflux, Hyperlipidemia, Hypertension, Myocardial Infarction ([place]) Additional Past Medical History / Comment(s): dementia diagnosed 2014, acute renal failure , e cloi in blood 12-08-15, sepsis(per micro) Last Myocardial Infarction Date:: 2000 History of Any Multi-Drug Resistant Organisms: None Reported Past Surgical History: Coronary Bypass/CABG, Hernia Repair Additional Past Surgical History / Comment(s): heart surgery in 2001, lt ear titanium implant, lt scalp skin lesion removed wed-no result on it yet, four hernia repair Past Anesthesia/Blood Transfusion Reactions: No Reported Reaction Past Psychological History: No Psychological Hx Reported Smoking Status: Former smoker Past Alcohol Use History: None Reported Additional Past Alcohol Use History / Comment(s): smoked x 50 years, 1 ppd, quit 2000 Past Drug Use History: None Reported - Past Family History Father Family Medical History: Congestive Heart Failure (CHF) Mother Family Medical History: Pneumonia Additional Family Medical History / Comment(s): mom lived to be age 94 from complications of pne Medications and Allergies Home Medications Medication Instructions Recorded Confirmed Type Aspirin 81 mg PO DAILY 12/08/15 09/16/18 History Cyanocobalamin [Vitamin B-12] 1,000 mcg PO DAILY 12/08/15 09/16/18 History Isosorbide Mononitrate [Isosorbide 30 mg PO DAILY 12/08/15 09/16/18 History Mononitrate ER] Memantine [Namenda] 10 mg PO BID 12/08/15 09/16/18 History Vit C/E/Zn/Coppr/Lutein/Zeaxan 1 cap PO DAILY 12/08/15 09/16/18 History [Preservision Areds 2 Softgel] Ferrous Sulfate [Iron (65 MG 325 mg PO DAILY 10/10/16 09/16/18 History Elemental)] Tamsulosin [Flomax] 0.4 mg PO DAILY #30 cap 10/11/16 09/16/18 Rx Atorvastatin [Lipitor] 40 mg PO DAILY 03/29/18 09/16/18 History Budesonide [Pulmicort] 0.5 mg INHALATION RT-BID 03/29/18 09/16/18 History Clotrimazole Cream [Lotrimin Cream] 1 applic TOPICAL BID 03/29/18 09/16/18 History Formoterol Fumarate [Perforomist] 20 mcg INHALATION RT-BID 03/29/18 09/16/18 History Ipratropium-Albuterol Nebulize 3 ml INHALATION RT-QID PRN 03/29/18 09/16/18 History [Duoneb 0.5 mg-3 mg/3 ml Soln] amLODIPine [Norvasc] 5 mg PO DAILY 03/29/18 09/16/18 History Allergies Allergy/AdvReac Type Severity Reaction Status Date / Time No Known Allergies Allergy Verified 09/16/18 22:11 Physical Exam Vitals: Vital Signs Temp Pulse Pulse Resp BP BP Pulse Ox 09/17/18 14:13 100 09/17/18 14:01 100 09/17/18 09:28 109 H 20 181/71 94 L 09/17/18 07:39 104 H 09/17/18 07:28 104 H 09/17/18 07:17 100 09/16/18 23:46 97.3 F L 84 16 134/80 09/16/18 22:50 104 H 28 H 126/82 94 L 09/16/18 22:35 107 H 18 09/16/18 22:29 104 H 18 09/16/18 21:22 26 H 09/16/18 21:16 97.6 F 103 H 26 H 171/89 94 L Intake and Output 09/16/18 09/17/18 09/17/18 22:59 06:59 14:59 Intake Total 600 Output Total 500 Balance 100 Intake: Intake, IV Titration 600 Amount Sodium Chloride 0.9% 1, 600 000 ml @ 75 mls/hr IV . [id number] [facility] Rx#:[id number] Output: Urine 500 Uretheral (Antonio) 500 Other: Weight 53.977 kg 53.977 kg Results 09/17/18 13:30 09/16/18 21:11 Cardiac Enzymes 09/16/18 09/16/18 Range/Units 21:11 21:11 AST 24 (17-59) U/L CK-MB (CK-2) 3.3 H (0.0-2.4) ng/mL Troponin I <0.012 (0.000-0.034) ng/mL Coagulation 09/16/18 09/17/18 Range/Units 21:11 13:30 PT 11.8 11.7 (9.0-12.0) sec APTT 23.4 (22.0-30.0) sec CBC 09/16/18 09/17/18 Range/Units 21:11 13:30 WBC 9.7 14.4 H (3.8-10.6) k/uL RBC 4.23 L 4.43 (4.30-5.90) m/uL Hgb 13.4 14.0 (13.0-17.5) gm/dL Hct 41.1 42.4 (39.0-53.0) % Plt Count 109 L 113 L (150-450) k/uL Comprehensive Metabolic Panel 09/16/18 Range/Units 21:11 Sodium 142 (137-145) mmol/L Potassium 3.8 (3.5-5.1) mmol/L Chloride 112 H (98-107) mmol/L Carbon Dioxide 23 (22-30) mmol/L BUN 25 H (9-20) mg/dL Creatinine 1.20 (0.66-1.25) mg/dL Glucose 100 H (74-99) mg/dL Calcium 7.6 L (8.4-10.2) mg/dL AST 24 (17-59) U/L ALT 31 (21-72) U/L Alkaline Phosphatase 94 (38-126) U/L Total Protein 5.3 L (6.3-8.2) g/dL Albumin 3.0 L (3.5-5.0) g/dL Current Medications Generic Name Dose Route Start Last Admin Trade Name Freq PRN Reason Stop Dose Admin Acetaminophen 650 mg 09/16/18 22:41 09/17/18 10:47 Tylenol Tab PO 650 mg Q6HR PRN Administration Mild Pain or Fever > 100.5 Albuterol/Ipratropium 3 ml 09/16/18 22:45 09/17/18 14:01 Duoneb 0.5 Mg-3 Mg/3 Ml Soln INHALATION 3 ml RT-QID PRN Administration Shortness Of Breath Amlodipine Besylate 5 mg 09/17/18 09:00 09/17/18 09:36 Norvasc PO 5 mg DAILY BONNY Administration Aspirin 81 mg 09/17/18 09:00 09/17/18 09:38 Aspirin PO Not Given DAILY [facility] Atorvastatin Calcium 40 mg 09/17/18 09:00 09/17/18 09:38 Lipitor PO Not Given DAILY [facility] Budesonide 0.5 mg 09/17/18 08:00 09/17/18 07:16 Pulmicort INHALATION 0.5 mg RT-BID BONNY Administration Clotrimazole 1 applic 09/17/18 09:00 Lotrimin Cream TOPICAL BID [facility] Cyanocobalamin 1,000 mcg 09/17/18 09:00 09/17/18 09:39 Vitamin B-12 PO Not Given DAILY [facility] Famotidine 20 mg 09/17/18 09:00 09/17/18 09:39 Pepcid PO Not Given BID [facility] Ferrous Sulfate 325 mg 09/17/18 09:00 09/17/18 09:39 Feosol PO Not Given DAILY [facility] Formoterol Fumarate 20 mcg 09/17/18 08:00 09/17/18 07:16 Perforomist INHALATION 20 mcg RT-BID [facility]ONNY Administration Sodium Chloride 1,000 mls @ 75 mls/hr 09/16/18 22:45 09/16/18 22:59 Saline 0.9% IV 75 mls/hr .[id number] [facility] Administration Isosorbide Mononitrate 30 mg 09/17/18 09:00 09/17/18 09:39 Imdur PO Not Given DAILY [facility] Memantine 10 mg 09/17/18 09:00 09/17/18 09:39 Namenda PO Not Given BID [facility] Methylprednisolone Sodium Succinate 60 mg 09/17/18 18:00 Solu-Medrol IV Q6HR [facility] Metoprolol Tartrate 25 mg 09/17/18 12:00 Lopressor PO BID [facility] Morphine Sulfate 4 mg 09/16/18 22:41 Morphine Sulfate (Inj) IV Q4HR PRN Severe Pain Naloxone HCl 0.2 mg 09/16/18 22:41 Narcan IV Q2M PRN Opioid Reversal Tamsulosin HCl 0.4 mg 09/17/18 09:00 09/17/18 09:39 Flomax PO Not Given DAILY [facility] Intake and Output 09/16/18 09/17/18 09/17/18 22:59 06:59 14:59 Intake Total 600 Output Total 500 Balance 100 Intake: Intake, IV Titration 600 Amount Sodium Chloride 0.9% 1, 600 000 ml @ 75 mls/hr IV . [id number] [facility] Rx#:[id number] Output: Urine 500 Uretheral (Antonio) 500 Other: Weight 53.977 kg 53.977 kg Patient Weight 09/18/18 06:59 Weight 53.977 kg 09/17/18 13:30 09/16/18 21:11
--- NOTE | 2018-09-17 15:30 | P.CNPUL ---
History of Present Illness Consult date: 09/17/18 Reason for consult: dyspnea, COPD, other Chief complaint: Fall, right hip fracture, shortness of breath History of present illness: This is a 79-year-old white male patient also Dr. Sheppard in the pulmonary office for his history of emphysema, sustained a fall at home, patient has balance issues related to his previous history of stroke, patient has lost his balance, and fell onto his right side, and was not able to walk due to right hip pain. He was brought into the emergency room for evaluation, x-ray of the right hip showed acute subcapital fracture of the right femur. He is known to have history of moderately severe dementia, COPD, GERD/reflux, hypertension, hyperlipidemia, previous episode of myocardial infarction, CVA, dysfunction, prostate enlargement, previous history of coronary artery bypass grafting in 2001, patient is a former smoker, quit in 2000, after having smoked for 50 years 1 pack a day. Patient is on nebulized Pulmicort, Perforomist, DuoNeb as his maintenance nebulized treatments at home. Asked x-ray was reviewed and showed COPD and pulmonary fibrosis, no acute lung disease. KG showed sinus tachycardia with PACs, and right bundle branch block pattern. Brain CT showed age-related atrophic and chronic small vessel ischemic changes without acute intracranial process. Lab work showed WBC of 9.7, hemoglobin 13.4, INR of 1.2, sodium is 142, potassium 2.8, chloride is 112, BUN of 25, creatinine is 1.2, plasma lactic acid was 1.7, troponin was negative 1, proBNP was 198. Patient was experiencing urinary retention, patient has required straight catheterization with the straight catheter. We are seeing this patient in evaluation for pulmonary clearance his upcoming surgery for his subcapital femur fracture. Patient is anxious, confused, agitated, is experiencing urinary retention, and she will require Antonio catheter placement, Antonio catheter was placed at the bedside, with return of a large amount of tea- colored urine. Lung sounds are positive for some coarse rhonchi, with expiratory wheezes throughout. Patient is anxious, and tachypneic and this is likely related to his urinary retention. He is is at the bedside, updated on patient's condition. We will start some IV steroids, nebulized bronchodilators, and optimize patient's condition for the upcoming surgery. Review of Systems All systems: negative Constitutional: Denies chills, Denies fever Eyes: denies blurred vision, denies pain Ears, nose, mouth and throat: Denies headache, Denies sore throat Cardiovascular: Denies chest pain, Denies shortness of breath Respiratory: Reports cough with sputum, Reports dyspnea, Reports wheezing, Denies cough Gastrointestinal: Denies abdominal pain, Denies diarrhea, Denies nausea, Denies vomiting Musculoskeletal: Reports gait dysfunction, Reports limitation of motion, Denies myalgias Musculoskeletal: right: hip pain Integumentary: Denies pruritus, Denies rash Neurological: Denies numbness, Denies weakness Psychiatric: Denies anxiety, Denies depression Endocrine: Denies fatigue, Denies weight change Past Medical History Past Medical History: COPD, CVA/TIA, Dementia, GERD/Reflux, Hyperlipidemia, Hypertension, Myocardial Infarction ([place]) Additional Past Medical History / Comment(s): dementia diagnosed 2014, acute renal failure , e cloi in blood 12-08-15, sepsis(per micro) Last Myocardial Infarction Date:: 2000 History of Any Multi-Drug Resistant Organisms: None Reported Past Surgical History: Coronary Bypass/CABG, Hernia Repair Additional Past Surgical History / Comment(s): heart surgery in 2001, lt ear titanium implant, lt scalp skin lesion removed wed-no result on it yet, four hernia repair Past Anesthesia/Blood Transfusion Reactions: No Reported Reaction Past Psychological History: No Psychological Hx Reported Smoking Status: Former smoker Past Alcohol Use History: None Reported Additional Past Alcohol Use History / Comment(s): smoked x 50 years, 1 ppd, quit 2000 Past Drug Use History: None Reported - Past Family History Father Family Medical History: Congestive Heart Failure (CHF) Mother Family Medical History: Pneumonia Additional Family Medical History / Comment(s): mom lived to be age 94 from complications of pne Medications and Allergies Home Medications Medication Instructions Recorded Confirmed Type Aspirin 81 mg PO DAILY 12/08/15 09/16/18 History Cyanocobalamin [Vitamin B-12] 1,000 mcg PO DAILY 12/08/15 09/16/18 History Isosorbide Mononitrate [Isosorbide 30 mg PO DAILY 12/08/15 09/16/18 History Mononitrate ER] Memantine [Namenda] 10 mg PO BID 12/08/15 09/16/18 History Vit C/E/Zn/Coppr/Lutein/Zeaxan 1 cap PO DAILY 12/08/15 09/16/18 History [Preservision Areds 2 Softgel] Ferrous Sulfate [Iron (65 MG 325 mg PO DAILY 10/10/16 09/16/18 History Elemental)] Tamsulosin [Flomax] 0.4 mg PO DAILY #30 cap 10/11/16 09/16/18 Rx Atorvastatin [Lipitor] 40 mg PO DAILY 03/29/18 09/16/18 History Budesonide [Pulmicort] 0.5 mg INHALATION RT-BID 03/29/18 09/16/18 History Clotrimazole Cream [Lotrimin Cream] 1 applic TOPICAL BID 03/29/18 09/16/18 History Formoterol Fumarate [Perforomist] 20 mcg INHALATION RT-BID 03/29/18 09/16/18 History Ipratropium-Albuterol Nebulize 3 ml INHALATION RT-QID PRN 03/29/18 09/16/18 History [Duoneb 0.5 mg-3 mg/3 ml Soln] amLODIPine [Norvasc] 5 mg PO DAILY 03/29/18 09/16/18 History Allergies Allergy/AdvReac Type Severity Reaction Status Date / Time No Known Allergies Allergy Verified 09/16/18 22:11 Physical Exam Vitals: Vital Signs Temp Pulse Pulse Resp BP BP Pulse Ox 09/17/18 14:13 100 09/17/18 14:01 100 09/17/18 09:28 109 H 20 181/71 94 L 09/17/18 07:39 104 H 09/17/18 07:28 104 H 09/17/18 07:17 100 09/16/18 23:46 97.3 F L 84 16 134/80 09/16/18 22:50 104 H 28 H 126/82 94 L 09/16/18 22:35 107 H 18 09/16/18 22:29 104 H 18 09/16/18 21:22 26 H 09/16/18 21:16 97.6 F 103 H 26 H 171/89 94 L Intake and Output 09/17/18 09/17/18 09/17/18 06:59 14:59 22:59 Intake Total 600 Output Total 500 Balance 100 Intake: Intake, IV Titration 600 Amount Sodium Chloride 0.9% 1, 600 000 ml @ 75 mls/hr IV . [id number] [facility] Rx#:[id number] Output: Urine 500 Uretheral (Antonio) 500 Other: Weight 53.977 kg GENERAL EXAM: Alert, diffuse, agitated, 79-year-old white male, patient is having the urge to urinate, but is currently experiencing urinary retention, and Antonio catheter was placed with return of tea-colored urine HEAD: Normocephalic/atraumatic. EYES: Normal reaction of pupils, equal size. Conjunctiva pink, sclera white. NOSE: Clear with pink turbinates. THROAT: No erythema or exudates. NECK: No masses, no JVD, no thyroid enlargement, no adenopathy. CHEST: No chest wall deformity. Symmetrical expansion. LUNGS: Diffuse rhonchi and wheezes throughout the lung esquivel CVS: Regular rate and rhythm, normal S1 and S2, no gallops, no murmurs, no rubs ABDOMEN: Soft, nontender. No hepatosplenomegaly, normal bowel sounds, no guarding or rigidity. EXTREMITIES: No clubbing, no edema, no cyanosis, 2+ pulses and upper and lower extremities. Right hip is painful to exam, with limitation of range of motion, distal pulses are intact, Soft and nontender. MUSCULOSKELETAL: Muscle strength and tone normal. SPINE: No scoliosis or deformity SKIN: No rashes CENTRAL NERVOUS SYSTEM: Alert and oriented -2. Is confused, and agitated No focal deficits, tone is normal in all 4 extremities. Results - Laboratory Findings CBC and BMP: 09/17/18 13:30 09/17/18 13:30 PT/INR, D-dimer PT 11.7 sec (9.0-12.0) 09/17/18 13:30 INR 1.2 (<1.2) H 09/17/18 13:30 Abnormal lab findings: Abnormal Labs 09/16/18 09/16/18 09/16/18 21:11 21:11 21:11 WBC RBC 4.23 L Plt Count 109 L Neutrophils # 8.3 H Lymphocytes # 0.7 L INR Chloride 112 H BUN 25 H Glucose 100 H Calcium 7.6 L Creatine Kinase CK-MB (CK-2) 3.3 H Total Protein 5.3 L Albumin 3.0 L Urine Protein Urine Ketones Urine Blood Urine RBC Urine Mucus 09/16/18 09/17/18 09/17/18 21:11 00:57 13:30 WBC RBC Plt Count Neutrophils # Lymphocytes # INR 1.2 H Chloride 110 H BUN 34 H Glucose 105 H Calcium Creatine Kinase 275 H CK-MB (CK-2) Total Protein Albumin Urine Protein Trace H Urine Ketones 1+ H Urine Blood Large H Urine RBC >182 H Urine Mucus Rare H 09/17/18 09/17/18 13:30 13:30 WBC 14.4 H RBC Plt Count 113 L Neutrophils # 13.0 H Lymphocytes # 0.4 L INR 1.2 H Chloride BUN Glucose Calcium Creatine Kinase CK-MB (CK-2) Total Protein Albumin Urine Protein Urine Ketones Urine Blood Urine RBC Urine Mucus - Diagnostic Findings Chest x-ray: report reviewed, image reviewed Additional studies: History of the right hip, CT results, EKG reviewed Assessment and Plan Plan: Assessment: #1. Acute hypoxic respiratory failure related to acute exacerbation of chronic obstructive pulmonary disease #2. Fall at home, acute right subcapital femoral fracture #3. Gait dysfunction #4. History of dementia and cognitive impairment #5. History of coronary artery disease status post four-vessel bypass graft #6. Hypertension, hyperlipidemia #7. History of CVA #8. Former nicotine dependence, currently in remission, patient carries 50-pack -year smoking history #9. Urinary retention or graft #10. History of enlarged prostate #11. History of previous myocardial infarction Plam: We'll start patient on IV steroids, continue with nebulized bronchodilators, Pulmicort and Perforomist. Antonio catheter was placed, for a urinary retention, with return of tea-colored urine, and there is a concern for possible rhabdomyolysis, we'll attain CPK, repeat CBC and BMP. Patient is currently agitated, confused, and she is short of breath, this in part may be related to anxiety, and discomfort related to urinary retention. Surgery is scheduled for tomorrow, patient is nothing by mouth after midnight. And the urinalysis with culture. Maintain pain control. From pulmonary perspective patient would benefit from surgery for his right hip fracture, although he is considered at increased risk related to his history of COPD, and multiple other comorbidities. I performed a history & physical examination of the patient and discussed their management with my nurse practitioner, Diane Cantu. I reviewed the nurse practitioner's note and agree with the documented findings and plan of care. Lung sounds are positive for diffuse wheezes throughout the lung esquivel. The findings and the impression was discussed with the patient. I attest to the documentation by the nurse practitioner. Time with Patient: Greater than 30
[2018-09-17] MEDS: METOPROLOL TARTRATE 25 MG TAB PO SCH ×2 (15:32→20:49)
[2018-09-17] MEDS: CLOTRIMAZOLE 1% CREAM 15 GM TUBE TOPICAL SCH ×2 (15:34→20:33)
[2018-09-17] MEDS: SODIUM CHLORIDE 0.9% 1,000 ML IV SCH (15:39)
[2018-09-17] MEDS: methylPREDNISolone SOD SUCCI 125 MG/2 ML VIAL IV SCH (18:06)
--- NOTE | 2018-09-17 18:28 | P.GSCN ---
History of Present Illness Consult date: 09/17/18 Reason for Consult: Urinary retention and gross hematuria History of present illness: The patient is an 87-year-old male with a history of dementia who fell yesterday and fractured his right hip. He was unable to void in the emergency room and was in and out cathed early this morning for approximately 500 mL. Urine at that time was apparently bloody. He remained unable to void and a Antonio catheter was inserted at approximately 1 this afternoon and also drained approximately 500 mL. His urine has remained bloody but the blood is dark in color. The patient has a history of COPD and appears to have had a recent exacerbation of this and because of that plans for surgical treatment of his hip fracture have been put on hold temporarily. The patient is well known to me. He was last seen by me 3 or 4 months ago. He has a history of urinary retention which occurred in 09/2016. The patient was able to void following a period of catheter drainage and the use of Flomax but has continued to have an elevated post void residual. Despite this he had no significant problems with urinary frequency or incontinence. The patient's said he usually voids every 3-4 hours during the day and once or twice at night. He has remained on Flomax up until the time of this admission. He has no other history of gross hematuria. Review of Systems - Constitutional Reports as per HPI - Cardiovascular Denies leg edema - Gastrointestinal Denies constipation - Genitourinary Reports as per HPI Past Medical History Past Medical History: COPD, CVA/TIA, Dementia, GERD/Reflux, Hyperlipidemia, Hypertension, Myocardial Infarction ([place]) Additional Past Medical History / Comment(s): dementia diagnosed 2014, acute renal failure , e cloi in blood 12-08-15, sepsis(per micro) BPH with chronic incomplete bladder emptying Last Myocardial Infarction Date:: 2000 History of Any Multi-Drug Resistant Organisms: None Reported Past Surgical History: Coronary Bypass/CABG, Hernia Repair Additional Past Surgical History / Comment(s): heart surgery in 2001, lt ear titanium implant, lt scalp skin lesion removed wed-no result on it yet, four hernia repair Past Anesthesia/Blood Transfusion Reactions: No Reported Reaction Past Psychological History: No Psychological Hx Reported Smoking Status: Former smoker Past Alcohol Use History: None Reported Additional Past Alcohol Use History / Comment(s): smoked x 50 years, 1 ppd, quit 2001 Past Drug Use History: None Reported - Past Family History Father Family Medical History: Congestive Heart Failure (CHF) Mother Family Medical History: Pneumonia Additional Family Medical History / Comment(s): mom lived to be age 94 from complications of pne Medications and Allergies Home Medications Medication Instructions Recorded Confirmed Type Aspirin 81 mg PO DAILY 12/08/15 09/16/18 History Cyanocobalamin [Vitamin B-12] 1,000 mcg PO DAILY 12/08/15 09/16/18 History Isosorbide Mononitrate [Isosorbide 30 mg PO DAILY 12/08/15 09/16/18 History Mononitrate ER] Memantine [Namenda] 10 mg PO BID 12/08/15 09/16/18 History Vit C/E/Zn/Coppr/Lutein/Zeaxan 1 cap PO DAILY 12/08/15 09/16/18 History [Preservision Areds 2 Softgel] Ferrous Sulfate [Iron (65 MG 325 mg PO DAILY 10/10/16 09/16/18 History Elemental)] Tamsulosin [Flomax] 0.4 mg PO DAILY #30 cap 10/11/16 09/16/18 Rx Atorvastatin [Lipitor] 40 mg PO DAILY 03/29/18 09/16/18 History Budesonide [Pulmicort] 0.5 mg INHALATION RT-BID 03/29/18 09/16/18 History Clotrimazole Cream [Lotrimin Cream] 1 applic TOPICAL BID 03/29/18 09/16/18 History Formoterol Fumarate [Perforomist] 20 mcg INHALATION RT-BID 03/29/18 09/16/18 History Ipratropium-Albuterol Nebulize 3 ml INHALATION RT-QID PRN 03/29/18 09/16/18 History [Duoneb 0.5 mg-3 mg/3 ml Soln] amLODIPine [Norvasc] 5 mg PO DAILY 03/29/18 09/16/18 History Allergies Allergy/AdvReac Type Severity Reaction Status Date / Time No Known Allergies Allergy Verified 09/16/18 22:11 Surgical - Exam Vital Signs Temp Pulse Resp BP Pulse Ox 97.6 F 103 H 26 H 171/89 94 L 09/16/18 21:16 09/16/18 21:16 09/16/18 21:16 09/16/18 21:16 09/16/18 21:16 - General well developed, well nourished, no distress - ENT no hearing loss - Neck no lymphadectomy - Respiratory normal respiratory effort - Abdomen Abdomen: soft, non tender, no organomegaly - Genitourinary normal penis with no external lesions, testicles present, other (Antonio catheter is present and is draining bloody urine-no clots are present in the catheter tubing in the color of the blood is dark.) - Neurologic disoriented, confused Results - Labs 09/17/18 13:30 09/17/18 13:30 Abnormal Lab Results - Last 24 Hours (Table) 09/16/18 09/16/18 09/16/18 Range/Units 21:11 21:11 21:11 WBC (3.8-10.6) k/uL RBC 4.23 L (4.30-5.90) m/uL Plt Count 109 L (150-450) k/uL Neutrophils # 8.3 H (1.3-7.7) k/uL Lymphocytes # 0.7 L (1.0-4.8) k/uL INR (<1.2) Chloride 112 H (98-107) mmol/L BUN 25 H (9-20) mg/dL Glucose 100 H (74-99) mg/dL Calcium 7.6 L (8.4-10.2) mg/dL Creatine Kinase (55-170) U/L CK-MB (CK-2) 3.3 H (0.0-2.4) ng/mL Total Protein 5.3 L (6.3-8.2) g/dL Albumin 3.0 L (3.5-5.0) g/dL Urine Protein (Negative) Urine Ketones (Negative) Urine Blood (Negative) Urine RBC (0-5) /hpf Urine Mucus (None) /hpf 09/16/18 09/17/18 09/17/18 Range/Units 21:11 00:57 13:30 WBC (3.8-10.6) k/uL RBC (4.30-5.90) m/uL Plt Count (150-450) k/uL Neutrophils # (1.3-7.7) k/uL Lymphocytes # (1.0-4.8) k/uL INR 1.2 H (<1.2) Chloride 110 H (98-107) mmol/L BUN 34 H (9-20) mg/dL Glucose 105 H (74-99) mg/dL Calcium (8.4-10.2) mg/dL Creatine Kinase 275 H (55-170) U/L CK-MB (CK-2) (0.0-2.4) ng/mL Total Protein (6.3-8.2) g/dL Albumin (3.5-5.0) g/dL Urine Protein Trace H (Negative) Urine Ketones 1+ H (Negative) Urine Blood Large H (Negative) Urine RBC >182 H (0-5) /hpf Urine Mucus Rare H (None) /hpf 09/17/18 09/17/18 Range/Units 13:30 13:30 WBC 14.4 H (3.8-10.6) k/uL RBC (4.30-5.90) m/uL Plt Count 113 L (150-450) k/uL Neutrophils # 13.0 H (1.3-7.7) k/uL Lymphocytes # 0.4 L (1.0-4.8) k/uL INR 1.2 H (<1.2) Chloride (98-107) mmol/L BUN (9-20) mg/dL Glucose (74-99) mg/dL Calcium (8.4-10.2) mg/dL Creatine Kinase (55-170) U/L CK-MB (CK-2) (0.0-2.4) ng/mL Total Protein (6.3-8.2) g/dL Albumin (3.5-5.0) g/dL Urine Protein (Negative) Urine Ketones (Negative) Urine Blood (Negative) Urine RBC (0-5) /hpf Urine Mucus (None) /hpf Diabetes panel 09/16/18 09/17/18 Range/Units 21:11 13:30 Sodium 142 140 (137-145) mmol/L Potassium 3.8 4.5 (3.5-5.1) mmol/L Chloride 112 H 110 H (98-107) mmol/L Carbon Dioxide 23 25 (22-30) mmol/L BUN 25 H 34 H (9-20) mg/dL Creatinine 1.20 1.05 (0.66-1.25) mg/dL Glucose 100 H 105 H (74-99) mg/dL Calcium 7.6 L 8.9 (8.4-10.2) mg/dL AST 24 (17-59) U/L ALT 31 (21-72) U/L Alkaline Phosphatase 94 (38-126) U/L Total Protein 5.3 L (6.3-8.2) g/dL Albumin 3.0 L (3.5-5.0) g/dL Calcium panel 09/16/18 09/17/18 Range/Units 21:11 13:30 Calcium 7.6 L 8.9 (8.4-10.2) mg/dL Albumin 3.0 L (3.5-5.0) g/dL Pituitary panel 09/16/18 09/17/18 Range/Units 21:11 13:30 Sodium 142 140 (137-145) mmol/L Potassium 3.8 4.5 (3.5-5.1) mmol/L Chloride 112 H 110 H (98-107) mmol/L Carbon Dioxide 23 25 (22-30) mmol/L BUN 25 H 34 H (9-20) mg/dL Creatinine 1.20 1.05 (0.66-1.25) mg/dL Glucose 100 H 105 H (74-99) mg/dL Calcium 7.6 L 8.9 (8.4-10.2) mg/dL Adrenal panel 09/16/18 09/17/18 Range/Units 21:11 13:30 Sodium 142 140 (137-145) mmol/L Potassium 3.8 4.5 (3.5-5.1) mmol/L Chloride 112 H 110 H (98-107) mmol/L Carbon Dioxide 23 25 (22-30) mmol/L BUN 25 H 34 H (9-20) mg/dL Creatinine 1.20 1.05 (0.66-1.25) mg/dL Glucose 100 H 105 H (74-99) mg/dL Calcium 7.6 L 8.9 (8.4-10.2) mg/dL Total Bilirubin 0.6 (0.2-1.3) mg/dL AST 24 (17-59) U/L ALT 31 (21-72) U/L Alkaline Phosphatase 94 (38-126) U/L Total Protein 5.3 L (6.3-8.2) g/dL Albumin 3.0 L (3.5-5.0) g/dL Assessment and Plan (1) Urinary retention with incomplete bladder emptying Narrative/Plan: The patient has a history of incomplete bladder emptying which has been chronic but has not been symptomatic. When the patient was in and out cathed earlier today he was not complaining of suprapubic pain and it's unclear whether the patient was truly in urinary retention or whether he would be able to have voided later in the morning. The gross hematuria is most likely related to catheter trauma. Patient's Antonio catheter should be left in place until the patient has undergone surgical treatment of his hip fracture and he is able to ambulate. His catheter should be irrigated periodically today to ensure that no clots remain in the dependent portion of the bladder. He should be continued on tamsulosin. Current Visit: Yes Status: Acute Code(s): R33.9 - RETENTION OF URINE, UNSPECIFIED SNOMED Code(s): 685050813
[2018-09-18] MEDS: methylPREDNISolone SOD SUCCI 125 MG/2 ML VIAL IV SCH ×3 (01:19→12:40)
[2018-09-18] MEDS: SODIUM CHLORIDE 0.9% 1,000 ML IV SCH ×2 (01:20→17:50)
[2018-09-18 07:57] LABS: Basophils % (A) 0 %; Eosinophils % (A) 0 %; HGB 13.8 gm/dL (13.0-17.5); Lymphocytes # (A) 0.3 k/uL (1.0-4.8); Lymphocytes % (A) 2 %; MCH 31.1 pg (25.0-35.0); MCHC 32.1 g/dL (31.0-37.0); MCV 96.7 fL (80.0-100.0); Mean Platelet Volume 8.4; Monocytes # (A) 0.3 k/uL (0-1.0); Monocytes % (A) 2 %; Neutrophils # (A) 11.9 k/uL (1.3-7.7); Neutrophils % (A) 95 %; Platelet Count 115 k/uL (150-450); RBC 4.45 m/uL (4.30-5.90); RDW 13.7 % (11.5-15.5); WBC 12.5 k/uL (3.8-10.6)
[2018-09-18] MEDS: FORMOTEROL FUMARATE 20 MCG/2 ML NEBU INHALATION SCH ×2 (08:10→21:14)
[2018-09-18] MEDS: BUDESONIDE 0.5 MG/2 ML NEBU INHALATION SCH ×2 (08:10→21:14)
[2018-09-18] MEDS: IPRATROPIUM-ALBUTEROL 3 ML NEB INHALATION PRN ×4 (08:10→21:14)
[2018-09-18 08:13] LABS: Calcium 8.8 mg/dL (8.4-10.2); Potassium 4.4 mmol/L (3.5-5.1)
--- NOTE | 2018-09-18 08:40 | P.PN ---
Subjective This is a pleasant 87 years old female with past medical history of COPD, CVA/ TIA, dementia, GERD, hyperlipidemia, essential hypertension, coronary artery disease, status post CABG who follows up with Dr. Sarmiento., who presents with fall with hip fracture. Also patient noted to have hematuria. Patient is poor historian and could not provide history even at baseline. However his more agitated. Patient could not provide information so it was taken up from the medical staff and at bedside. As per patient has baseline dementia and sometimes he can recognize the and sometimes not. However he can ask for his wound and cleaning himself and actually he can do these things by himself and yesterday he was walking to the living room when the heard him fall. She came to the room and he was fully awake but he could not movement was complaining of pain is his right hip area. So she called the doctor and brought him to the emergency room. When he found he has a right hip fracture, associated with hematuria. As per patient was following up with Dr. Vaughn urologist before for urinary retention but he did not have hematuria before. 09/18/2018 Patient is seen and examined by me at bedside, his total confused which is in view of his dementia at baseline. And he still short of breath and wheezing. Patient has Antonio catheter which showing the same P-colored urine. His CPKs mildly elevated at 275. He still on IV fluids with lowered the rate from 75-50 mL/h. Cardiology consult is appreciated and as per their evaluation his high- risk for surgery. They recommended echocardiogram which was done however the offshore result is pending. Blood pressure is better controlled with the additions of antihypertensive medication. Patient still wheezing and pulmonary and following the case. The added scissors steroids and breathing treatment. His leukocytosis is improving from 14.4 to 12.5 k, we will add ceftriaxone for suspicious of infection and sending urine culture to rule out UTI as patient is going for possible surgery. Patient is high-risk for this intermediate risk procedure Review of system: n/a , for patient dementia Medications are reviewed including Tylenol 650 mg Dunob 0.5-3 mg, aspirin 81 mg , Norvasc 10 mg, Pulmicort 0.5 mg, clotrimazole cream, vitamin B12 1000 g, Pepcid 20 mg, ferrous sulfate 325 mg, formoterol 20 g, Imdur 30 mg, Namenda 10 mg, morphine sulfate 4 mg, sodium chloride at 50 mL/h, Flomax 0.4 mg , ceftriaxone 1000 mg, Solu-Medrol 60 mg. Objective - Vital Signs Vital signs: Vital Signs Temp 97.5 F L 09/18/18 01:13 Pulse 100 09/18/18 08:29 Resp 18 09/18/18 01:13 BP 145/68 09/18/18 04:39 Pulse Ox 93 L 09/18/18 01:13 Intake & Output 09/17/18 09/18/18 09/18/18 18:59 06:59 18:59 Output Total 1350 Balance -1350 Weight 53.977 kg Output: Urine 1350 Other: Voiding Method Indwelling Catheter # Voids 0 # Bowel Movements 2 - Exam -GENERAL: The patient is alert and oriented x0, not in any acute distress. HEENT: Pupils are round and equally reacting to light. EOMI. No scleral icterus. No conjunctival pallor. Normocephalic, atraumatic. No pharyngeal erythema. No thyromegaly. CARDIOVASCULAR: S1 and S2 present. No murmurs, rubs, or gallops. PULMONARY: Chest is clear to auscultation, no wheezing or crackles. ABDOMEN: Soft, nontender, nondistended, normoactive bowel sounds. No palpable organomegaly. MUSCULOSKELETAL: No joint swelling or deformity. -EXTREMITIES: No cyanosis, clubbing, or pedal edema. , Right leg is short and externally rotated Nexternal EUROLOGICAL: Gross neurological examination did not reveal any focal deficits. SKIN: No rashes. - Labs CBC & Chem 7: 09/18/18 07:14 09/18/18 07:14 Labs: Abnormal Lab Results - Last 24 Hours (Table) 09/17/18 09/17/18 09/17/18 Range/Units 13:30 13:30 13:30 WBC 14.4 H (3.8-10.6) k/uL Plt Count 113 L (150-450) k/uL Neutrophils # 13.0 H (1.3-7.7) k/uL Lymphocytes # 0.4 L (1.0-4.8) k/uL INR 1.2 H (<1.2) Chloride 110 H (98-107) mmol/L BUN 34 H (9-20) mg/dL Glucose 105 H (74-99) mg/dL Creatine Kinase 275 H (55-170) U/L 09/18/18 09/18/18 Range/Units 07:14 07:14 WBC 12.5 H (3.8-10.6) k/uL Plt Count 115 L (150-450) k/uL Neutrophils # 11.9 H (1.3-7.7) k/uL Lymphocytes # 0.3 L (1.0-4.8) k/uL INR (<1.2) Chloride 109 H (98-107) mmol/L BUN 34 H (9-20) mg/dL Glucose 131 H (74-99) mg/dL Creatine Kinase (55-170) U/L Assessment and Plan Assessment: Acute right hip fracture Fall Hematuria, rule out UTI Hypertension with tachycardia History of coronary artery disease, status post CABG essential ial hypertension Dementia History of CVA/TIA GERD Hyperlipidemia Plan: This is a pleasant 87 years old male who presents with fall and hip fracture. Labs and medication review. Continue with pain medication. Orthopedic consultation is appreciated planned for surgery. Patient is moderate risk for moderate surgery. Patient was started on metoprolol for his hypertension and tachycardia, cardiology consultation into his significant cardiac history. Patient has hematuria with urinary culture. Start antibiotic empirically. Will call urology consult. Continue same treatment. Continue symptomatic treatment. Resume home medication. Monitor lytes and vitals. GI and DVT prophylaxis. Further recommendation is based on the clinical course of the patient's DVT prophylaxis: Heparin hold for hematuria and surgery GI prophylaxis: Pepcid PT/OT: Pending Prognosis is guarded
[2018-09-18] MEDS: ATORVASTATIN 40 MG TAB PO SCH (09:03)
[2018-09-18] MEDS: METOPROLOL TARTRATE 25 MG TAB PO SCH ×2 (09:04→22:36)
[2018-09-18] MEDS: TAMSULOSIN 0.4 MG CAP.ER.24H PO SCH (09:04)
[2018-09-18] MEDS: ASPIRIN 81 MG PO SCH (09:04)
[2018-09-18] MEDS: FERROUS SULFATE 325 MG TAB PO SCH (09:04)
[2018-09-18] MEDS: CYANOCOBALAMIN 500 MCG TAB PO SCH (09:04)
[2018-09-18] MEDS: MEMANTINE 10 MG TAB PO SCH ×2 (09:04→22:36)
[2018-09-18] MEDS: FAMOTIDINE 20 MG TAB PO SCH ×2 (09:04→22:36)
[2018-09-18] MEDS: ISOSORBIDE MONONITRATE ER 30 MG TAB.ER.24H PO SCH (09:04)
[2018-09-18] MEDS: amLODIPine 10 MG TAB PO SCH (09:05)
[2018-09-18] MEDS: CLOTRIMAZOLE 1% CREAM 15 GM TUBE TOPICAL SCH ×2 (09:05→22:36)
--- NOTE | 2018-09-18 09:33 | ECHOF ---
Referral Reason:pre op MEASUREMENTS -------- HEIGHT: 175.3 cm WEIGHT: 54.0 kg BP: 181/71 RVIDd: 2.6 cm (< 3.3) IVSd: 1.2 cm (0.6 - 1.1) LVIDd: 2.8 cm (3.9 - 5.3) LVPWd: 1.1 cm (0.6 - 1.1) IVSs: 1.4 cm LVIDs: 2.3 cm LVPWs: 1.9 cm LA Diam: 2.1 cm (2.7 - 3.8) Ao Diam: 3.3 cm (2.0 - 3.7) AV Cusp: 1.9 cm (1.5 - 2.6) EPSS: 0.4 cm MV E Ky: 0.67 m/s MV DecT: 104 ms MV A Ky: 0.29 m/s MV E/A Ratio: 2.34 RAP: 5.00 mmHg RVSP: 38.73 mmHg MV EF SLOPE: 199.21 mm/s (70 - 150) MV EXCURSION: 2.72 cm (> 18.000) FINDINGS -------- Sinus rhythm. This was a technically difficult study with suboptimal views. The left ventricular size is normal. There is borderline concentric left ventricular hypertrophy. Overall left ventricular systolic function is normal with, an EF between 55 - 60 %. The right ventricle is normal in size. The left atrial size is normal. The right atrium is normal in size. There is mild aortic valve sclerosis. The mitral valve leaflets are mildly thickened. Mild mitral annular calcification present. Mild tricuspid regurgitation present. There is mild pulmonary hypertension. The right ventricular systolic pressure, as measured by Doppler, is 38.73mmHg. There is no pulmonic regurgitation present. The aortic root size is normal. Normal inferior vena cava with normal inspiratory collapse consistent with estimated right atrial pre ssure of 5 mmHg. There is no pericardial effusion. CONCLUSIONS -------- 1. Sinus rhythm. 2. This was a technically difficult study with suboptimal views. 3. The left ventricular size is normal. 4. There is borderline concentric left ventricular hypertrophy. 5. Overall left ventricular systolic function is normal with, an EF between 55 - 60 %. 6. The right ventricle is normal in size. 7. The left atrial size is normal. 8. The right atrium is normal in size. 9. There is mild aortic valve sclerosis. 10. The mitral valve leaflets are mildly thickened. 11. Mild mitral annular calcification present. 12. Mild tricuspid regurgitation present. 13. There is mild pulmonary hypertension. 14. The right ventricular systolic pressure, as measured by Doppler, is 38.73mmHg. 15. There is no pulmonic regurgitation present. 16. The aortic root size is normal. 17. Normal inferior vena cava with normal inspiratory collapse consistent with estimated right atrial pressure of 5 mmHg. 18. There is no pericardial effusion. PASSENGER SERVICE REPRESENTATIVE: SURENDRA Reece
--- NOTE | 2018-09-18 11:30 | P.PN ---
Progress Note - Text Progress Note Date: 09/18/18 The patient remains confused. His urine is tea colored which is consistent with previous bleeding from traumatic catheter insertion. The patient continues to try and remove his catheter and will require supervision at all times in the postoperative period. I discussed this with the patient's and she says that the tentative plans are for him to go to a rehab facility once he has recovered from his hip surgery.
[2018-09-18 12:04] LABS: Appearance,Urine Cloudy (Clear); Bilirubin,Urine Negative (Negative); Blood,Urine Large (Negative); Color,Urine Light Red; Glucose,Urine (UA) Negative (Negative); Ketones,Urine Negative (Negative); Leukocyte Esterase,Urine Moderate (Negative); Mucus,Urine Occasional /hpf; Nitrite,Urine Negative (Negative); PH, Urine 5.5 (5.0-8.0); Protein,Urine 1+ (Negative); RBC,Urine >182 /hpf (0-5); Urobilinogen,Urine <2.0 mg/dL (<2.0)
--- NOTE | 2018-09-18 13:51 | P.PN ---
Subjective Progress Note Date: 09/18/18 Principal diagnosis: Fall, right hip fracture This is a 79-year-old white male patient who follows with Dr. Sheppard in the pulmonary office for his history of emphysema, sustained a fall at home, patient has balance issues related to his previous history of stroke, patient has lost his balance, and fell onto his right side, and was not able to walk due to right hip pain. He was brought into the emergency room for evaluation, x -ray of the right hip showed acute subcapital fracture of the right femur. He is known to have history of moderately severe dementia, COPD, GERD/reflux, hypertension, hyperlipidemia, previous episode of myocardial infarction, CVA, dysfunction, prostate enlargement, previous history of coronary artery bypass grafting in 2001, patient is a former smoker, quit in 2000, after having smoked for 50 years 1 pack a day. Patient is on nebulized Pulmicort, Perforomist, DuoNeb as his maintenance nebulized treatments at home. Asked x-ray was reviewed and showed COPD and pulmonary fibrosis, no acute lung disease. KG showed sinus tachycardia with PACs, and right bundle branch block pattern. Brain CT showed age-related atrophic and chronic small vessel ischemic changes without acute intracranial process. Lab work showed WBC of 9.7, hemoglobin 13.4 , INR of 1.2, sodium is 142, potassium 2.8, chloride is 112, BUN of 25, creatinine is 1.2, plasma lactic acid was 1.7, troponin was negative 1, proBNP was 198. Patient was experiencing urinary retention, patient has required straight catheterization with the straight catheter. We are seeing this patient in evaluation for pulmonary clearance his upcoming surgery for his subcapital femur fracture. Patient is anxious, confused, agitated, is experiencing urinary retention, and she will require Antonio catheter placement, Antonio catheter was placed at the bedside, with return of a large amount of tea- colored urine. Lung sounds are positive for some coarse rhonchi, with expiratory wheezes throughout. Patient is anxious, and tachypneic and this is likely related to his urinary retention. He is is at the bedside, updated on patient's condition. We will start some IV steroids, nebulized bronchodilators, and optimize patient's condition for the upcoming surgery. The patient is seen again today 09/18/2018 in follow-up on the regular medical floor. He is quite anxious. Pulling at his sheets and blankets. Temperature 99.0. Maintaining O2 saturations in the 90s on 5 L/m per nasal cannula. He remains on bronchodilators, antibiotics in the form of ceftriaxone, IV Solu- Medrol. Hemodynamically stable. White count 12.5. Hemoglobin 13.8. Creatinine 0.98. The plan is for repair of the hip fracture today. Objective - Vital Signs Vital signs: Vital Signs Temp 98.6 F 09/18/18 13:02 Pulse 65 09/18/18 13:02 Resp 17 09/18/18 13:02 BP 113/63 09/18/18 13:02 Pulse Ox 93 L 09/18/18 01:13 Intake & Output 09/17/18 09/18/18 09/18/18 18:59 06:59 18:59 Intake Total 0 Output Total 1350 Balance -1350 0 Weight 53.977 kg Intake: Oral 0 Output: Urine 1350 Other: Voiding Method Indwelling Catheter Indwelling Catheter # Voids 0 # Bowel Movements 2 - Exam GENERAL EXAM: Alert, diffuse, agitated, 79-year-old white male, on nasal O2 at 5 L. HEAD: Normocephalic/atraumatic. EYES: Normal reaction of pupils, equal size. Conjunctiva pink, sclera white. NOSE: Clear with pink turbinates. THROAT: No erythema or exudates. NECK: No masses, no JVD, no thyroid enlargement, no adenopathy. CHEST: No chest wall deformity. Symmetrical expansion. LUNGS: Diffuse rhonchi and wheezes throughout the lung esquivel CVS: Regular rate and rhythm, normal S1 and S2, no gallops, no murmurs, no rubs ABDOMEN: Soft, nontender. No hepatosplenomegaly, normal bowel sounds, no guarding or rigidity. EXTREMITIES: No clubbing, no edema, no cyanosis, 2+ pulses and upper and lower extremities. Right hip is painful to exam, with limitation of range of motion, distal pulses are intact. MUSCULOSKELETAL: Muscle strength and tone normal. SPINE: No scoliosis or deformity SKIN: No rashes CENTRAL NERVOUS SYSTEM: Alert and oriented -2. Is confused, and agitated No focal deficits, tone is normal in all 4 extremities. - Labs CBC & Chem 7: 09/18/18 07:14 09/18/18 07:14 Labs: Abnormal Lab Results - Last 24 Hours (Table) 09/17/18 09/17/18 09/17/18 Range/Units 13:30 13:30 13:30 WBC 14.4 H (3.8-10.6) k/uL Plt Count 113 L (150-450) k/uL Neutrophils # 13.0 H (1.3-7.7) k/uL Lymphocytes # 0.4 L (1.0-4.8) k/uL INR 1.2 H (<1.2) Chloride 110 H (98-107) mmol/L BUN 34 H (9-20) mg/dL Glucose 105 H (74-99) mg/dL Creatine Kinase 275 H (55-170) U/L Urine Protein (Negative) Urine Blood (Negative) Ur Leukocyte Esterase (Negative) Urine RBC (0-5) /hpf Urine WBC (0-5) /hpf Urine Mucus (None) /hpf 09/18/18 09/18/18 09/18/18 Range/Units 07:14 07:14 11:15 WBC 12.5 H (3.8-10.6) k/uL Plt Count 115 L (150-450) k/uL Neutrophils # 11.9 H (1.3-7.7) k/uL Lymphocytes # 0.3 L (1.0-4.8) k/uL INR (<1.2) Chloride 109 H (98-107) mmol/L BUN 34 H (9-20) mg/dL Glucose 131 H (74-99) mg/dL Creatine Kinase (55-170) U/L Urine Protein 1+ H (Negative) Urine Blood Large H (Negative) Ur Leukocyte Esterase Moderate H (Negative) Urine RBC >182 H (0-5) /hpf Urine WBC 12 H (0-5) /hpf Urine Mucus Occasional H (None) /hpf Assessment and Plan Assessment: Assessment: #1. Acute hypoxic respiratory failure related to acute exacerbation of chronic obstructive pulmonary disease #2. Fall at home, acute right subcapital femoral fracture, and the plan is for cemented hemiarthroplasty of the right hip today. #3. Gait dysfunction #4. History of dementia and cognitive impairment #5. History of coronary artery disease status post four-vessel bypass graft #6. Hypertension, hyperlipidemia #7. History of CVA #8. Former nicotine dependence, currently in remission, patient carries 50-pack -year smoking history #9. Urinary retention, status post Antonio catheter insertion #10. History of enlarged prostate #11. History of previous myocardial infarction Plan: The patient was seen and evaluated by Dr. Paz. He is improved slightly today as compared to yesterday regards to his COPD. We'll continue with the bronchodilators. Decrease IV Solu-Medrol. The plan is for a spinal for his surgery today. We'll follow him closely in the postoperative period. I, the cosigning physician, performed a history & physical examination of the patient. Lungs sounds with few scattered rhonchi, faint end expiratory wheeze, diminished. Maintaining good O2 saturations in the 90s on 5 liters per minute per nasal cannula. I discussed the assessment and plan of care with my nurse practitioner, Eugenia Acuña. I attest to the above note as dictated by her.
[2018-09-18] MEDS ORDERED: ePHEDrine SULFATE/0.9% NACL/PF 50 MG/5 ML SYRINGE IV ONE (14:08)
[2018-09-18] MEDS ORDERED: ceFAZolin 3,000 MG in SODIUM CHLORIDE 0.9% IRRIGATIO 3,000 ML IRRIGATION ONE (14:08)
[2018-09-18] MEDS ORDERED: KETAMINE 10 MG/ML 20 ML VIAL ONE (14:08)
[2018-09-18] MEDS ORDERED: PHENYLEPHRINE-0.9% NACL SYG 1 MG/10 ML SYRINGE ONE (14:08)
[2018-09-18] MEDS ORDERED: TRANEXAMIC ACID 1,000 MG/10 ML VIAL ONE (14:08)
[2018-09-18] MEDS ORDERED: SODIUM CHLORIDE 0.9% 100 ML BAG ONE (14:08)
[2018-09-18] MEDS ORDERED: IV FLUID CONTINUATION 1,000 ML IV ONE (14:08)
[2018-09-18] MEDS ORDERED: MIDAZOLAM 2 MG/2 ML VIAL ONE (14:08)
[2018-09-18] MEDS ORDERED: methylPREDNISolone SOD SUCCI 125 MG/2 ML VIAL ONE (14:08)
[2018-09-18] MEDS ORDERED: TRANEXAMIC ACID 1,000 MG in SODIUM CHLORIDE 0.9% 50 ML IVPB ONE ×4 (14:12)
[2018-09-18] MEDS ORDERED: SODIUM CHLORIDE 0.9% 100 ML with ceFAZolin 2,000 MG IV ONE ×2 (14:15)
[2018-09-18] MEDS ORDERED: methylPREDNISolone SOD SUCCI 125 MG/2 ML VIAL IV ONE (14:15)
[2018-09-18] MEDS ORDERED: MORPHINE SULFATE 2 MG/ML SYRINGE IV PRN ×2 (14:20)
[2018-09-18] MEDS ORDERED: NALOXONE 0.4 MG/ML 1 ML VIAL IV PRN (14:20)
[2018-09-18] MEDS ORDERED: Acetaminophen-Codeine 300-30mg TAB PO PRN (14:20)
[2018-09-18] MEDS ORDERED: LACTATED RINGERS 1,000 ML IV ONE (15:31)
--- NOTE | 2018-09-18 16:21 | P.OP ---
Date of Procedure: 09/18/18 Procedure(s) Performed: PREOPERATIVE DIAGNOSIS: Right hip femoral neck fracture POSTOPERATIVE DIAGNOSIS: Right hip femoral neck fracture OPERATION: Right hip cemented unipolar hemiarthroplasty. ANESTHESIA: Spinal ESTIMATED BLOOD LOSS: 100 ml. DIRECTOR DERMATOLOGY: none COMPLICATIONS: None apparent. COMPONENTS IMPLANTED: Maxx LDFx cemented femoral stem; unipolar femoral head; neck extension augments as needed. INDICATIONS: Mr. Mejia is an 87-year-old male with severe dementia and a history of falling and sustaining a femoral neck fracture. I have recommended surgical treatment with a cemented unipolar hemiarthroplasty. I have discussed this procedure in detail and explained the potential risks and complications as being inclusive of, but not limited to: Bleeding, infection, scarring, discomfort, blood vessel and/or nerve damage, limb length inequality, gait disturbance, blood clot, pulmonary embolism, , and other risks. The consent form has been signed. PROCEDURE: After appropriate consent was obtained, the patient was taken to the operating room and placed in supine position. Spinal anesthetic was administered and after confirmation of adequate anesthesia, the patient was placed into the lateral decubitus position with the affected side up. Care was taken to make sure that all pressure points were adequately padded and a Mingus hip positioner was utilized for positioning. The hip was prepped and draped in the usual aseptic fashion using a combination of Chloraprep and alcohol. Ioban drape was used for the case and the patient received intravenous antibiotics prior to the incision. 1 g intravenous tranexamic acid was administered around the time of the prepping and draping, and another 1 g was administered at the time of closure. The incision was created directly over the greater trochanter and carried slightly posteriorly for a posterior approach to the hip. The incision was then deepened down to subcutaneous tissue and fascia bessie. Fascia bessie was split in line with the incision and split proximally along the fibers of the gluteus zia. The underlying fibers of the muscle were teased apart using finger dissection and bleeding vessels were picked up and coagulated. Retractor was then placed posteriorly consisting of a blunt Alice. The short external rotators and capsule were exposed and good visualization of the attachment of the external rotators to the femur was established. The short external rotators and capsule were released using electrocautery from their femoral attachments. A hockey stick shaped incision was created in the capsule. Joint fluid and hemarthrosis was evacuated and the patient's hip was internally rotated to expose the fracture site. The femoral neck cut was created approximately 1 cm superior to the lesser trochanter using a reciprocating saw. The femoral head and neck fragment was removed and visualization and palpation of the acetabular vault showed intact hyaline cartilage with no bone exposure or significant degeneration. Attention was then directed back to the proximal femur. Retractors were placed around the proximal femur and box osteotome was used followed by canal finder and trochanteric reamer. Cylindrical reaming was performed. Progressive broaching was then performed starting with a #10 broach and progressing final size, in a position of 10-15 degrees anteversion. Marshall anteversion was within 5 degrees of stem position. The final size broach had excellent fit and fill of the patient's metaphysis and diaphysis. Calcar planing was performed. Trial reduction was then performed starting with appropriately sized femoral head and various neck extensions to evaluate stability, limb length equality, and soft tissue tension. Once these parameters were satisfactory, the corresponding final components were then called for. Trial components were removed. The femoral canal was sized for the centralizer and cement plug. Once the cement plug had been inserted distal to the planned length of the femoral component, the canal was pulse lavaged and brushed to remove any unstable bone. It was then dried with a lap sponge. Cement was mixed under vacuum conditions to decrease porosity and inserted into a cement gun. Distal centralizer was placed onto the femoral component with a bit of cement. The cement was allowed to reach a slightly doughy consistency and then the canal was filled retrograde with the cement gun. Thumb pressurization was performed three times. The femoral component was then inserted with the previously determined degree of anteversion. Excess cement was removed before it hardened completely. The femoral head was then impacted onto the Diaz taper. Blood and debris were removed from the acetabular socket and the hip was then reduced and checked for stability, limb length and soft tissue tension. These parameters were found to be satisfactory; the wound was then thoroughly irrigated with normal saline. Final hemostasis was obtained using electrocautery. Closure of the capsule was performed meticulously using #3 Vicryl suture. Four [id number] sutures were placed in the posterior capsule along with repair of the external rotators. The fascia bessie was then repaired using combination of #3 Vicryl suture in interrupted fashion and Quill in running fashion. 2-0 Vicryl suture was used for the subcutaneous tissues and 3-0 Quill for the skin. Dermabond tape was then applied. The patient tolerated the procedure well. There were no complications and the wound bed was dry and there was no need for drain placement. Sterile dressing was then applied and the patient was carefully removed from the operating room table, placed on the stretcher and was taken to the recovery room in stable condition. Sponge and needle counts were correct.
--- NOTE | 2018-09-18 17:27 | XR ---
EXAMINATION TYPE: XR Hip Limited RT DATE OF EXAM: 09/18/2018 COMPARISON: 09/16/2018 HISTORY: Surgery TECHNIQUE: Single view FINDINGS: There is a new right hip prosthesis. Components appear in anatomic position. IMPRESSION: No complicating process seen.
[2018-09-18] MEDS: methylPREDNISolone SOD SUCCI 40 MG/ML 1 ML VIAL IV SCH (17:51)
[2018-09-18 18:04] LABS: Basophils % (A) 0 %; Eosinophils % (A) 0 %; HCT 37.8 % (39.0-53.0); HGB 12.3 gm/dL (13.0-17.5); Lymphocytes # (A) 0.5 k/uL (1.0-4.8); Lymphocytes % (A) 5 %; MCH 31.7 pg (25.0-35.0); MCHC 32.6 g/dL (31.0-37.0); MCV 97.2 fL (80.0-100.0); Mean Platelet Volume 8.2; Monocytes # (A) 0.3 k/uL (0-1.0); Monocytes % (A) 3 %; Neutrophils # (A) 9.5 k/uL (1.3-7.7); Neutrophils % (A) 91 %; Platelet Count 100 k/uL (150-450); RBC 3.89 m/uL (4.30-5.90); RDW 13.7 % (11.5-15.5); WBC 10.4 k/uL (3.8-10.6)
[2018-09-18] MEDS: ceFAZolin IN SWFI 2 GM/20 ML SYRINGE IVP SCH (18:10)
[2018-09-18] MEDS: SENNOSIDES-DOCUSATE SODIUM 1 EACH TAB PO SCH (22:36)
[2018-09-19] MEDS: ceFAZolin IN SWFI 2 GM/20 ML SYRINGE IVP SCH (00:40)
[2018-09-19] MEDS: methylPREDNISolone SOD SUCCI 40 MG/ML 1 ML VIAL IV SCH ×2 (00:41→08:44)
[2018-09-19] MEDS: FORMOTEROL FUMARATE 20 MCG/2 ML NEBU INHALATION SCH ×2 (07:51→21:10)
[2018-09-19] MEDS: IPRATROPIUM-ALBUTEROL 3 ML NEB INHALATION PRN ×4 (07:51→21:10)
[2018-09-19] MEDS: BUDESONIDE 0.5 MG/2 ML NEBU INHALATION SCH ×2 (07:51→21:10)
[2018-09-19] MEDS ORDERED: FUROSEMIDE 10 MG/ML 4 ML VIAL IV STA (08:08)
[2018-09-19] MEDS: ASPIRIN 81 MG PO SCH (08:40)
[2018-09-19] MEDS: MEMANTINE 10 MG TAB PO SCH ×2 (08:41→21:59)
[2018-09-19] MEDS: FERROUS SULFATE 325 MG TAB PO SCH (08:41)
[2018-09-19] MEDS: ISOSORBIDE MONONITRATE ER 30 MG TAB.ER.24H PO SCH (08:41)
[2018-09-19] MEDS: RIVAROXABAN 10 MG TAB PO SCH (08:41)
[2018-09-19] MEDS: TAMSULOSIN 0.4 MG CAP.ER.24H PO SCH (08:41)
[2018-09-19] MEDS: amLODIPine 10 MG TAB PO SCH (08:41)
[2018-09-19] MEDS: METOPROLOL TARTRATE 25 MG TAB PO SCH ×2 (08:41→21:59)
[2018-09-19] MEDS: ATORVASTATIN 40 MG TAB PO SCH (08:41)
[2018-09-19] MEDS: FAMOTIDINE 20 MG TAB PO SCH ×2 (08:41→21:59)
[2018-09-19] MEDS: CYANOCOBALAMIN 500 MCG TAB PO SCH (08:42)
[2018-09-19] MEDS: CLOTRIMAZOLE 1% CREAM 15 GM TUBE TOPICAL SCH ×2 (08:42→21:59)
[2018-09-19] MEDS: Acetaminophen-Codeine 300-30mg TAB PO PRN (09:54)
--- NOTE | 2018-09-19 10:08 | P.PN ---
Subjective This is a pleasant 87 years old female with past medical history of COPD, CVA/ TIA, dementia, GERD, hyperlipidemia, essential hypertension, coronary artery disease, status post CABG who follows up with Dr. Sarmiento., who presents with fall with hip fracture. Also patient noted to have hematuria. Patient is poor historian and could not provide history even at baseline. However his more agitated. Patient could not provide information so it was taken up from the medical staff and at bedside. As per patient has baseline dementia and sometimes he can recognize the and sometimes not. However he can ask for his wound and cleaning himself and actually he can do these things by himself and yesterday he was walking to the living room when the heard him fall. She came to the room and he was fully awake but he could not movement was complaining of pain is his right hip area. So she called the doctor and brought him to the emergency room. When he found he has a right hip fracture, associated with hematuria. As per patient was following up with Dr. Vaughn urologist before for urinary retention but he did not have hematuria before. 09/18/2018 Patient is seen and examined by me at bedside, his total confused which is in view of his dementia at baseline. And he still short of breath and wheezing. Patient has Antonio catheter which showing the same P-colored urine. His CPKs mildly elevated at 275. He still on IV fluids with lowered the rate from 75-50 mL/h. Cardiology consult is appreciated and as per their evaluation his high- risk for surgery. They recommended echocardiogram which was done however the offshore result is pending. Blood pressure is better controlled with the additions of antihypertensive medication. Patient still wheezing and pulmonary and following the case. The added scissors steroids and breathing treatment. His leukocytosis is improving from 14.4 to 12.5 k, we will add ceftriaxone for suspicious of infection and sending urine culture to rule out UTI as patient is going for possible surgery. Patient is high-risk for this intermediate risk procedure Review of system: n/a , for patient dementia 09/19/2018 Patient is status post right hip arthroplasty yesterday on 09/18/2018. Patient looks more comfortable today and more calm. He is answering questions better than yesterday. He still have some shortness of breath 1 dose of Lasix is given and decrease the fluids rate. Vitas looks stable patient afebrile. Leukocytosis improved. Echocardiogram: EF 55-60% with borderline LVH. Baseline of patient is confusion related to his dementia. Still have hematuria and Antonio catheter Medications are reviewed including Tylenol 650 mg Dunob 0.5-3 mg, aspirin 81 mg , Norvasc 10 mg, Pulmicort 0.5 mg, clotrimazole cream, vitamin B12 1000 g, Pepcid 20 mg, ferrous sulfate 325 mg, formoterol 20 g, Imdur 30 mg, Namenda 10 mg, morphine sulfate 4 mg, sodium chloride at 50 mL/h, Flomax 0.4 mg , ceftriaxone 1000 mg, Solu-Medrol 60 mg. Objective - Vital Signs Vital signs: Vital Signs Temp 98.3 F 09/19/18 08:00 Pulse 104 H 09/19/18 08:16 Resp 26 H 09/19/18 08:00 BP 144/105 09/19/18 08:00 Pulse Ox 96 09/19/18 08:00 Intake & Output 09/18/18 09/19/18 09/19/18 18:59 06:59 18:59 Intake Total 151 800 Output Total 900 450 Balance -749 350 Intake: IV 151 Intake, IV Titration 800 Amount Sodium Chloride 0.9% 1, 400 000 ml @ 50 mls/hr IV . Q20H [facility] Rx#:[id number] cefTRIAXone 1,000 mg In 400 Sodium Chloride 0.9% 50 ml @ 100 mls/hr IVPB Q24HR [facility] Rx#:[id number] Oral 0 Output: Urine 800 450 Estimated Blood Loss 100 Other: Voiding Method Indwelling Catheter Indwelling Catheter - Exam -GENERAL: The patient is alert and oriented x0, not in any acute distress. HEENT: Pupils are round and equally reacting to light. EOMI. No scleral icterus. No conjunctival pallor. Normocephalic, atraumatic. No pharyngeal erythema. No thyromegaly. CARDIOVASCULAR: S1 and S2 present. No murmurs, rubs, or gallops. PULMONARY: Chest is clear to auscultation, no wheezing or crackles. ABDOMEN: Soft, nontender, nondistended, normoactive bowel sounds. No palpable organomegaly. MUSCULOSKELETAL: No joint swelling or deformity. -EXTREMITIES: No cyanosis, clubbing, or pedal edema. , Right leg is short and externally rotated Nexternal EUROLOGICAL: Gross neurological examination did not reveal any focal deficits. SKIN: No rashes. - Labs CBC & Chem 7: 09/18/18 17:53 09/18/18 07:14 Labs: Abnormal Lab Results - Last 24 Hours (Table) 09/18/18 09/18/18 Range/Units 11:15 17:53 RBC 3.89 L (4.30-5.90) m/uL Hgb 12.3 L (13.0-17.5) gm/dL Hct 37.8 L (39.0-53.0) % Plt Count 100 L (150-450) k/uL Neutrophils # 9.5 H (1.3-7.7) k/uL Lymphocytes # 0.5 L (1.0-4.8) k/uL Urine Protein 1+ H (Negative) Urine Blood Large H (Negative) Ur Leukocyte Esterase Moderate H (Negative) Urine RBC >182 H (0-5) /hpf Urine WBC 12 H (0-5) /hpf Urine Mucus Occasional H (None) /hpf Microbiology - Last 24 Hours (Table) 09/18/18 11:15 Urine Culture - Preliminary Urine,Clean Catch Assessment and Plan Assessment: Acute right hip fracture, status post right hip arthroplasty on 09/18/2018 Fall Hematuria, rule out UTI Hypertension with tachycardia History of coronary artery disease, status post CABG essential ial hypertension Dementia History of CVA/TIA GERD Hyperlipidemia Plan: This is a pleasant 87 years old male who presents with fall and hip fracture. Labs and medication review. Continue with pain medication. Orthopedic consultation is appreciated planned for surgery. Patient is moderate risk for moderate surgery. Patient was started on metoprolol for his hypertension and tachycardia, cardiology consultation into his significant cardiac history. Patient has hematuria with urinary culture. Start antibiotic empirically. Will call urology consult. Continue same treatment. Continue symptomatic treatment. Resume home medication. Monitor lytes and vitals. GI and DVT prophylaxis. Further recommendation is based on the clinical course of the patient's DVT prophylaxis: Heparin hold for hematuria and surgery GI prophylaxis: Pepcid PT/OT: Pending Prognosis is guarded
[2018-09-19 10:28] LABS: Basophils % (A) 0 %; Eosinophils % (A) 0 %; HCT 41.2 % (39.0-53.0); HGB 13.3 gm/dL (13.0-17.5); Lymphocytes # (A) 0.3 k/uL (1.0-4.8); Lymphocytes % (A) 2 %; MCH 31.7 pg (25.0-35.0); MCHC 32.4 g/dL (31.0-37.0); MCV 97.7 fL (80.0-100.0); Mean Platelet Volume 9.4; Monocytes # (A) 0.9 k/uL (0-1.0); Monocytes % (A) 6 %; Neutrophils % (A) 91 %; Platelet Count 110 k/uL (150-450); RBC 4.21 m/uL (4.30-5.90); RDW 13.9 % (11.5-15.5); WBC 14.3 k/uL (3.8-10.6)
[2018-09-19 10:38] LABS: Calcium 8.6 mg/dL (8.4-10.2); Potassium 3.4 mmol/L (3.5-5.1)
--- NOTE | 2018-09-19 10:42 | P.PN ---
Subjective Progress Note Date: 09/19/18 Principal diagnosis: Right hip fracture. Status post hemiarthroplasty right hip. This is an 87-year-old male who is status post hemiarthroplasty of the right hip for subcapital hip fracture. He is stable from an orthopedic standpoint. He has no new complaints or concerns today. Vitals are stable. Objective - Vital Signs Vital signs: Vital Signs Temp 98.3 F 09/19/18 08:00 Pulse 104 H 09/19/18 08:16 Resp 26 H 09/19/18 08:00 BP 144/105 09/19/18 08:00 Pulse Ox 96 09/19/18 08:00 Intake & Output 09/18/18 09/19/18 09/19/18 18:59 06:59 18:59 Intake Total 151 800 Output Total 900 450 Balance -749 350 Intake: IV 151 Intake, IV Titration 800 Amount Sodium Chloride 0.9% 1, 400 000 ml @ 50 mls/hr IV . Q20H [facility] Rx#:[id number] cefTRIAXone 1,000 mg In 400 Sodium Chloride 0.9% 50 ml @ 100 mls/hr IVPB Q24HR [facility] Rx#:[id number] Oral 0 Output: Urine 800 450 Estimated Blood Loss 100 Other: Voiding Method Indwelling Catheter Indwelling Catheter - Exam This is a pleasant 87-year-old gentleman in no acute distress. He is significantly confused this morning. Exam of the right hip reveals that his dressing is clean, dry and intact. He is unable to follow commands appropriately. Pedal pulses +2/4. Neurovascular status to the lower extremity is intact. - Labs CBC & Chem 7: 09/19/18 10:15 09/18/18 07:14 Labs: Abnormal Lab Results - Last 24 Hours (Table) 09/18/18 09/18/18 09/19/18 Range/Units 11:15 17:53 10:15 WBC 14.3 H (3.8-10.6) k/uL RBC 3.89 L 4.21 L (4.30-5.90) m/uL Hgb 12.3 L (13.0-17.5) gm/dL Hct 37.8 L (39.0-53.0) % Plt Count 100 L 110 L (150-450) k/uL Neutrophils # 9.5 H 13.0 H (1.3-7.7) k/uL Lymphocytes # 0.5 L 0.3 L (1.0-4.8) k/uL Urine Protein 1+ H (Negative) Urine Blood Large H (Negative) Ur Leukocyte Esterase Moderate H (Negative) Urine RBC >182 H (0-5) /hpf Urine WBC 12 H (0-5) /hpf Urine Mucus Occasional H (None) /hpf Microbiology - Last 24 Hours (Table) 09/18/18 11:15 Urine Culture - Preliminary Urine,Clean Catch Assessment and Plan (1) Closed right hip fracture Current Visit: Yes Status: Acute Code(s): S72.001A - FRACTURE OF UNSP PART OF NECK OF RIGHT FEMUR, INIT SNOMED Code(s): 910007000 (2) Altered mental status Current Visit: No Status: Acute Code(s): R41.82 - ALTERED MENTAL STATUS, UNSPECIFIED SNOMED Code(s): 047159205 Plan: The clinical findings are discussed with nursing staff. They report that his confusion is fairly baseline for him. Continue orthopedic care.
[2018-09-19] MEDS: SODIUM CHLORIDE 0.9% 1,000 ML IV SCH (11:48)
[2018-09-19] MEDS: MULTIVITAMINS, THERA 1 EACH TAB PO SCH (11:48)
[2018-09-19] MEDS ORDERED: ARTIFICIAL TEARS-HYPROMELLOSE DROPS 15 ML BTL BOTH EYES PRN (11:50)
--- NOTE | 2018-09-19 14:54 | P.PN ---
Subjective Patient is seen and examined resting comfortably in bed with family at the bedside. He underwent right hip hemiarthroplasty yesterday. He continues to be confused at baseline. Blood pressure 144/105 heart rate 100s. Laboratory data reviewed, hemoglobin 14.3, platelets 110, sodium 144, potassium 3.4, creatinine 0.91. Currently maintained on amlodipine 10 mg daily, aspirin 81 mg daily, atorvastatin 40 mg daily, Imdur 30 mg daily, xarelto 10 mg daily and metoprolol 25 mg twice a day. Echocardiogram obtained reveals preserved left ventricular systolic function with ejection fraction 55-60%, mild pulmonary hypertension with an RVSP of 30 mmHg. GENERAL: Well-appearing, well-nourished and in no acute distress. NECK: Supple without JVD or thyromegaly. LUNGS: Breath sounds clear to auscultation bilaterally. Respiration equal and unlabored. No wheezes, rales or rhonchi. HEART: Regular rate and rhythm with systolic ejection murmur, no rubs or gallops. S1 and S2 heard. EXTREMITIES: Normal range of motion, no edema. No clubbing or cyanosis. Peripheral pulses intact. ASSESSMENT Fall with right femur fracture Postoperative day #1 right hip hemiarthroplasty Leukocytosis History of coronary artery disease status post four-vessel bypass grafting Hypertension Dyslipidemia Dementia COPD Former nicotine dependence PLAN Stable from a cardiac perspective. states he is going [facility]. Follow-up with Dr. Richey upon discharge. Nurse Practitioner note has been reviewed, I agree with a documented findings and plan of care. Patient was seen and examined. Objective - Vital Signs Vital signs: Vital Signs Temp 98.3 F 09/19/18 08:00 Pulse 100 09/19/18 11:35 Resp 26 H 09/19/18 08:00 BP 144/105 09/19/18 08:00 Pulse Ox 96 09/19/18 08:00 Intake & Output 09/18/18 09/19/18 09/19/18 18:59 06:59 18:59 Intake Total 151 800 0 Output Total 334 387 5046 Balance -749 350 -1000 Intake: IV 151 Intake, IV Titration 800 Amount Sodium Chloride 0.9% 1, 400 000 ml @ 40 mls/hr IV . Q24H [facility] Rx#:[id number] cefTRIAXone 1,000 mg In 400 Sodium Chloride 0.9% 50 ml @ 100 mls/hr IVPB Q24HR [facility] Rx#:[id number] Oral 0 0 Output: Urine 655 975 1196 Estimated Blood Loss 100 Other: Voiding Method Indwelling Catheter Indwelling Catheter - Labs CBC & Chem 7: 09/19/18 10:15 09/19/18 10:15 Labs: Abnormal Lab Results - Last 24 Hours (Table) 09/18/18 09/19/18 09/19/18 Range/Units 17:53 10:15 10:15 WBC 14.3 H (3.8-10.6) k/uL RBC 3.89 L 4.21 L (4.30-5.90) m/uL Hgb 12.3 L (13.0-17.5) gm/dL Hct 37.8 L (39.0-53.0) % Plt Count 100 L 110 L (150-450) k/uL Neutrophils # 9.5 H 13.0 H (1.3-7.7) k/uL Lymphocytes # 0.5 L 0.3 L (1.0-4.8) k/uL Potassium 3.4 L (3.5-5.1) mmol/L Chloride 109 H (98-107) mmol/L BUN 38 H (9-20) mg/dL Glucose 105 H (74-99) mg/dL Microbiology - Last 24 Hours (Table) 09/18/18 11:15 Urine Culture - Preliminary Urine,Clean Catch
--- NOTE | 2018-09-19 15:32 | P.PN ---
Subjective Progress Note Date: 09/19/18 Fall, right hip fracture This is a 79-year-old white male patient who follows with Dr. Sheppard in the pulmonary office for his history of emphysema, sustained a fall at home, patient has balance issues related to his previous history of stroke, patient has lost his balance, and fell onto his right side, and was not able to walk due to right hip pain. He was brought into the emergency room for evaluation, x -ray of the right hip showed acute subcapital fracture of the right femur. He is known to have history of moderately severe dementia, COPD, GERD/reflux, hypertension, hyperlipidemia, previous episode of myocardial infarction, CVA, dysfunction, prostate enlargement, previous history of coronary artery bypass grafting in 2001, patient is a former smoker, quit in 2000, after having smoked for 50 years 1 pack a day. Patient is on nebulized Pulmicort, Perforomist, DuoNeb as his maintenance nebulized treatments at home. Asked x-ray was reviewed and showed COPD and pulmonary fibrosis, no acute lung disease. KG showed sinus tachycardia with PACs, and right bundle branch block pattern. Brain CT showed age-related atrophic and chronic small vessel ischemic changes without acute intracranial process. Lab work showed WBC of 9.7, hemoglobin 13.4 , INR of 1.2, sodium is 142, potassium 2.8, chloride is 112, BUN of 25, creatinine is 1.2, plasma lactic acid was 1.7, troponin was negative 1, proBNP was 198. Patient was experiencing urinary retention, patient has required straight catheterization with the straight catheter. We are seeing this patient in evaluation for pulmonary clearance his upcoming surgery for his subcapital femur fracture. Patient is anxious, confused, agitated, is experiencing urinary retention, and she will require Antonio catheter placement, Antonio catheter was placed at the bedside, with return of a large amount of tea- colored urine. Lung sounds are positive for some coarse rhonchi, with expiratory wheezes throughout. Patient is anxious, and tachypneic and this is likely related to his urinary retention. He is is at the bedside, updated on patient's condition. We will start some IV steroids, nebulized bronchodilators, and optimize patient's condition for the upcoming surgery. The patient is seen again today 09/18/2018 in follow-up on the regular medical floor. He is quite anxious. Pulling at his sheets and blankets. Temperature 99.0. Maintaining O2 saturations in the 90s on 5 L/m per nasal cannula. He remains on bronchodilators, antibiotics in the form of ceftriaxone, IV Solu- Medrol. Hemodynamically stable. White count 12.5. Hemoglobin 13.8. Creatinine 0.98. The plan is for repair of the hip fracture today. On 09/19/2018, the patient is calm and comfortable and resting comfortably in bed. The patient underwent his right hip ORIF under spinal anesthesia without any major complications. He did not require to be intubated. Following the surgery, the patient was brought back to his room. Currently has a Antonio catheter in place. A mutually has cleared. He is calm and comfortable. No agitation. No restlessness. As mentioned earlier the patient has significant and severe Alzheimer dementia with cognitive impairment. Family is at the bedside. The patient is currently on Tylenol 3 for pain control. Antonio catheter is in place. He is on DuoNeb nebulized is [id number] and the patient not having any major respiratory difficulties. He is also on Pulmicort Respules 0.5 mg nebulized treatments twice a day. DVT prophylaxis is Xarelto. On today's blood work hemoglobin is stable at 13.3. Normal renal function. No significant electrolyte abnormalities. Objective - Vital Signs Vital signs: Vital Signs Temp 98.3 F 09/19/18 08:00 Pulse 100 09/19/18 11:35 Resp 26 H 09/19/18 08:00 BP 144/105 09/19/18 08:00 Pulse Ox 96 09/19/18 08:00 Intake & Output 09/18/18 09/19/18 09/19/18 18:59 06:59 18:59 Intake Total 151 800 0 Output Total 233 135 2782 Balance -749 350 -1000 Intake: IV 151 Intake, IV Titration 800 Amount Sodium Chloride 0.9% 1, 400 000 ml @ 40 mls/hr IV . Q24H [facility] Rx#:[id number] cefTRIAXone 1,000 mg In 400 Sodium Chloride 0.9% 50 ml @ 100 mls/hr IVPB Q24HR [facility] Rx#:[id number] Oral 0 0 Output: Urine 702 [id number] 2076 Estimated Blood Loss 100 Other: Voiding Method Indwelling Catheter Indwelling Catheter - Exam GENERAL EXAM: Alert, diffuse, agitated, 79-year-old white male, on nasal O2 at 5 L. HEAD: Normocephalic/atraumatic. EYES: Normal reaction of pupils, equal size. Conjunctiva pink, sclera white. NOSE: Clear with pink turbinates. THROAT: No erythema or exudates. NECK: No masses, no JVD, no thyroid enlargement, no adenopathy. CHEST: No chest wall deformity. Symmetrical expansion. LUNGS: Diffuse rhonchi and wheezes throughout the lung esquivel CVS: Regular rate and rhythm, normal S1 and S2, no gallops, no murmurs, no rubs ABDOMEN: Soft, nontender. No hepatosplenomegaly, normal bowel sounds, no guarding or rigidity. EXTREMITIES: No clubbing, no edema, no cyanosis, 2+ pulses and upper and lower extremities. Right hip is painful to exam, with limitation of range of motion, distal pulses are intact. The right hip ORIF site is dry clean and intact. MUSCULOSKELETAL: Muscle strength and tone normal. SPINE: No scoliosis or deformity SKIN: No rashes CENTRAL NERVOUS SYSTEM: Alert and oriented -2. Is confused, and agitated No focal deficits, tone is normal in all 4 extremities. - Labs CBC & Chem 7: 09/19/18 10:15 09/19/18 10:15 Labs: Abnormal Lab Results - Last 24 Hours (Table) 09/18/18 09/19/18 09/19/18 Range/Units 17:53 10:15 10:15 WBC 14.3 H (3.8-10.6) k/uL RBC 3.89 L 4.21 L (4.30-5.90) m/uL Hgb 12.3 L (13.0-17.5) gm/dL Hct 37.8 L (39.0-53.0) % Plt Count 100 L 110 L (150-450) k/uL Neutrophils # 9.5 H 13.0 H (1.3-7.7) k/uL Lymphocytes # 0.5 L 0.3 L (1.0-4.8) k/uL Potassium 3.4 L (3.5-5.1) mmol/L Chloride 109 H (98-107) mmol/L BUN 38 H (9-20) mg/dL Glucose 105 H (74-99) mg/dL Microbiology - Last 24 Hours (Table) 09/18/18 11:15 Urine Culture - Preliminary Urine,Clean Catch Assessment and Plan Plan: Assessment: #1. Acute hypoxic respiratory failure related to acute exacerbation of chronic obstructive pulmonary disease, currently inactive and stable. The patient is improved and there is no signs of any acute bronchospasm wheezing. I'm going to discontinue the IV Solu Medrol which potentially can be attributed to the patient's delirium/dementia on stability. The patient will be kept on DuoNeb neb treatments around the clock and Pulmicort Respules and the patient will be taken off the IV Solu Medrol. #2. Fall at home, acute right subcapital femoral fracture, and the patient is post right hemiarthroplasty and the patient is postop day #1. Xarelto for DVT prophylaxis. #3. Gait dysfunction #4. History of dementia and cognitive impairment #5. History of coronary artery disease status post four-vessel bypass graft #6. Hypertension, hyperlipidemia #7. History of CVA #8. Former nicotine dependence, currently in remission, patient carries 50-pack -year smoking history #9. Urinary retention, status post Antonio catheter insertion #10. History of enlarged prostate #11. History of previous myocardial infarction Plan Discontinue the IV Solu-Medrol. Continue bronchodilators. Continue IV Rocephin. Xarelto for DVT prophylaxis. Tylenol to for pain control. Monitor delirium. Keep the Antonio catheter in place. Blood work is all stable. We'll continue to follow.
[2018-09-19] MEDS: SENNOSIDES-DOCUSATE SODIUM 1 EACH TAB PO SCH (21:59)
--- NOTE | 2018-09-20 08:11 | P.PN ---
Subjective This is a pleasant 87 years old female with past medical history of COPD, CVA/ TIA, dementia, GERD, hyperlipidemia, essential hypertension, coronary artery disease, status post CABG who follows up with Dr. Sarmiento., who presents with fall with hip fracture. Also patient noted to have hematuria. Patient is poor historian and could not provide history even at baseline. However his more agitated. Patient could not provide information so it was taken up from the medical staff and at bedside. As per patient has baseline dementia and sometimes he can recognize the and sometimes not. However he can ask for his wound and cleaning himself and actually he can do these things by himself and yesterday he was walking to the living room when the heard him fall. She came to the room and he was fully awake but he could not movement was complaining of pain is his right hip area. So she called the doctor and brought him to the emergency room. When he found he has a right hip fracture, associated with hematuria. As per patient was following up with Dr. Vaughn urologist before for urinary retention but he did not have hematuria before. 09/18/2018 Patient is seen and examined by me at bedside, his total confused which is in view of his dementia at baseline. And he still short of breath and wheezing. Patient has Antonio catheter which showing the same P-colored urine. His CPKs mildly elevated at 275. He still on IV fluids with lowered the rate from 75-50 mL/h. Cardiology consult is appreciated and as per their evaluation his high- risk for surgery. They recommended echocardiogram which was done however the offshore result is pending. Blood pressure is better controlled with the additions of antihypertensive medication. Patient still wheezing and pulmonary and following the case. The added scissors steroids and breathing treatment. His leukocytosis is improving from 14.4 to 12.5 k, we will add ceftriaxone for suspicious of infection and sending urine culture to rule out UTI as patient is going for possible surgery. Patient is high-risk for this intermediate risk procedure Review of system: n/a , for patient dementia 09/19/2018 Patient is status post right hip arthroplasty yesterday on 09/18/2018. Patient looks more comfortable today and more calm. He is answering questions better than yesterday. He still have some shortness of breath 1 dose of Lasix is given and decrease the fluids rate. Vitas looks stable patient afebrile. Leukocytosis improved. Echocardiogram: EF 55-60% with borderline LVH. Baseline of patient is confusion related to his dementia. Still have hematuria and Antonio catheter Lying in bed not in distress. 09/20/2018 post op day 2 for right hip arthroplasty , patient lying in bed with no distress. Vitals stable and he is afebrile. Distal and antibiotic for possible UTI. Urine culture: No growth and 18 hours, stone process. He has a Antonio catheter for hematuria. Mild leukocytosis. He is on xarelto For DVT prophylaxis and his hemoglobin is stable. Follow-up Hemoglobin and WBC. Medications are reviewed including Tylenol 650 mg Dunob 0.5-3 mg, aspirin 81 mg , Norvasc 10 mg, Pulmicort 0.5 mg, clotrimazole cream, vitamin B12 1000 g, Pepcid 20 mg, ferrous sulfate 325 mg, formoterol 20 g, Imdur 30 mg, Namenda 10 mg, morphine sulfate 4 mg, sodium chloride at 50 mL/h, Flomax 0.4 mg , ceftriaxone 1000 mg, Solu-Medrol 60 mg. Objective - Vital Signs Vital signs: Vital Signs Temp 98.7 F 09/19/18 22:53 Pulse 73 09/19/18 22:53 Resp 17 09/19/18 22:53 BP 102/61 09/19/18 22:53 Pulse Ox 99 09/19/18 22:53 Intake & Output 09/19/18 09/20/18 09/20/18 18:59 06:59 18:59 Intake Total 0 450 Output Total 1000 450 Balance -1000 0 Intake: Intake, IV Titration 400 Amount Lactated Ringers 1,000 ml 400 @ 0 mls/hr IV .[employer] ONE Rx#:[id number] Oral 0 50 Output: Urine 1000 450 Other: Voiding Method Indwelling Catheter - Exam -GENERAL: The patient is alert and oriented x0, not in any acute distress. HEENT: Pupils are round and equally reacting to light. EOMI. No scleral icterus. No conjunctival pallor. Normocephalic, atraumatic. No pharyngeal erythema. No thyromegaly. CARDIOVASCULAR: S1 and S2 present. No murmurs, rubs, or gallops. PULMONARY: Chest is clear to auscultation, no wheezing or crackles. ABDOMEN: Soft, nontender, nondistended, normoactive bowel sounds. No palpable organomegaly. MUSCULOSKELETAL: No joint swelling or deformity. -EXTREMITIES: No cyanosis, clubbing, or pedal edema. , Right leg is short and externally rotated Nexternal EUROLOGICAL: Gross neurological examination did not reveal any focal deficits. SKIN: No rashes. - Labs CBC & Chem 7: 09/19/18 10:15 09/19/18 10:15 Labs: Abnormal Lab Results - Last 24 Hours (Table) 09/19/18 09/19/18 Range/Units 10:15 10:15 WBC 14.3 H (3.8-10.6) k/uL RBC 4.21 L (4.30-5.90) m/uL Plt Count 110 L (150-450) k/uL Neutrophils # 13.0 H (1.3-7.7) k/uL Lymphocytes # 0.3 L (1.0-4.8) k/uL Potassium 3.4 L (3.5-5.1) mmol/L Chloride 109 H (98-107) mmol/L BUN 38 H (9-20) mg/dL Glucose 105 H (74-99) mg/dL Microbiology - Last 24 Hours (Table) 09/18/18 11:15 Urine Culture - Final Urine,Clean Catch Assessment and Plan Assessment: Acute right hip fracture, status post right hip arthroplasty on 09/18/2018 Fall Hematuria, rule out UTI Hypertension with tachycardia History of coronary artery disease, status post CABG essential ial hypertension Dementia History of CVA/TIA GERD Hyperlipidemia Plan: This is a pleasant 87 years old male who presents with fall and hip fracture. Labs and medication review. Continue with pain medication. Orthopedic consultation is appreciated planned for surgery. Patient is moderate risk for moderate surgery. Patient was started on metoprolol for his hypertension and tachycardia, cardiology consultation into his significant cardiac history. Patient has hematuria with urinary culture. Start antibiotic empirically. Will call urology consult. Continue same treatment. Continue symptomatic treatment. Resume home medication. Monitor lytes and vitals. GI and DVT prophylaxis. Further recommendation is based on the clinical course of the patient's DVT prophylaxis: Heparin hold for hematuria and surgery GI prophylaxis: Pepcid PT/OT: Pending Prognosis is guarded
[2018-09-20] MEDS: BUDESONIDE 0.5 MG/2 ML NEBU INHALATION SCH ×2 (08:14→21:05)
[2018-09-20] MEDS: IPRATROPIUM-ALBUTEROL 3 ML NEB INHALATION PRN ×3 (08:14→21:05)
[2018-09-20] MEDS: FORMOTEROL FUMARATE 20 MCG/2 ML NEBU INHALATION SCH ×2 (08:14→21:05)
--- NOTE | 2018-09-20 08:29 | P.PN ---
Subjective Progress Note Date: 09/20/18 Principal diagnosis: Right hip fracture. Status post hemiarthroplasty right hip. This is an 87-year-old male who is status post hemiarthroplasty of the right hip for subcapital hip fracture. He is stable from an orthopedic standpoint. He has confusion. Vital signs are stable. Objective - Vital Signs Vital signs: Vital Signs Temp 98.7 F 09/19/18 22:53 Pulse 78 09/20/18 08:16 Resp 17 09/19/18 22:53 BP 102/61 09/19/18 22:53 Pulse Ox 99 09/19/18 22:53 Intake & Output 09/19/18 09/20/18 09/20/18 18:59 06:59 18:59 Intake Total 0 450 Output Total 1000 450 Balance -1000 0 Intake: Intake, IV Titration 400 Amount Lactated Ringers 1,000 ml 400 @ 0 mls/hr IV .[employer] ONE Rx#:[id number] Oral 0 50 Output: Urine 1000 450 Other: Voiding Method Indwelling Catheter - Exam This is a pleasant 87-year-old gentleman in no acute distress. He is significantly confused this morning. Exam of the right hip reveals that his dressing is clean, dry and intact. He is unable to follow commands appropriately. Pedal pulses +2/4. Neurovascular status to the lower extremity is intact. - Labs CBC & Chem 7: 09/19/18 10:15 09/19/18 10:15 Labs: Abnormal Lab Results - Last 24 Hours (Table) 09/19/18 09/19/18 Range/Units 10:15 10:15 WBC 14.3 H (3.8-10.6) k/uL RBC 4.21 L (4.30-5.90) m/uL Plt Count 110 L (150-450) k/uL Neutrophils # 13.0 H (1.3-7.7) k/uL Lymphocytes # 0.3 L (1.0-4.8) k/uL Potassium 3.4 L (3.5-5.1) mmol/L Chloride 109 H (98-107) mmol/L BUN 38 H (9-20) mg/dL Glucose 105 H (74-99) mg/dL Microbiology - Last 24 Hours (Table) 09/18/18 11:15 Urine Culture - Final Urine,Clean Catch Assessment and Plan (1) Closed right hip fracture Current Visit: Yes Status: Acute Code(s): S72.001A - FRACTURE OF UNSP PART OF NECK OF RIGHT FEMUR, INIT SNOMED Code(s): 234757614 (2) Altered mental status Current Visit: No Status: Acute Code(s): R41.82 - ALTERED MENTAL STATUS, UNSPECIFIED SNOMED Code(s): 289645696 Plan: The clinical findings are discussed with nursing staff. They report that his confusion is fairly baseline for him. Continue orthopedic care. May d/c when cleared medically.
[2018-09-20 08:43] VITALS: RESP 18
[2018-09-20] MEDS: CYANOCOBALAMIN 500 MCG TAB PO SCH (09:17)
[2018-09-20] MEDS: FAMOTIDINE 20 MG TAB PO SCH (09:17)
[2018-09-20] MEDS: FERROUS SULFATE 325 MG TAB PO SCH (09:17)
[2018-09-20] MEDS: METOPROLOL TARTRATE 25 MG TAB PO SCH ×2 (09:17→20:56)
[2018-09-20] MEDS: MULTIVITAMINS, THERA 1 EACH TAB PO SCH (09:17)
[2018-09-20] MEDS: amLODIPine 10 MG TAB PO SCH (09:18)
[2018-09-20] MEDS: RIVAROXABAN 10 MG TAB PO SCH (09:18)
[2018-09-20] MEDS: ISOSORBIDE MONONITRATE ER 30 MG TAB.ER.24H PO SCH (09:18)
[2018-09-20] MEDS: TAMSULOSIN 0.4 MG CAP.ER.24H PO SCH (09:18)
[2018-09-20] MEDS: MEMANTINE 10 MG TAB PO SCH ×2 (09:18→20:56)
[2018-09-20] MEDS: Acetaminophen-Codeine 300-30mg TAB PO PRN (09:18)
[2018-09-20] MEDS: ASPIRIN 81 MG PO SCH (09:18)
[2018-09-20] MEDS: ATORVASTATIN 40 MG TAB PO SCH (09:18)
--- NOTE | 2018-09-20 12:20 | P.PN ---
Subjective Progress Note Date: 09/20/18 Principal diagnosis: Fall right hip fracture This is a 79-year-old white male patient who follows with Dr. Sheppard in the pulmonary office for his history of emphysema, sustained a fall at home, patient has balance issues related to his previous history of stroke, patient has lost his balance, and fell onto his right side, and was not able to walk due to right hip pain. He was brought into the emergency room for evaluation, x -ray of the right hip showed acute subcapital fracture of the right femur. He is known to have history of moderately severe dementia, COPD, GERD/reflux, hypertension, hyperlipidemia, previous episode of myocardial infarction, CVA, dysfunction, prostate enlargement, previous history of coronary artery bypass grafting in 2001, patient is a former smoker, quit in 2000, after having smoked for 50 years 1 pack a day. Patient is on nebulized Pulmicort, Perforomist, DuoNeb as his maintenance nebulized treatments at home. Asked x-ray was reviewed and showed COPD and pulmonary fibrosis, no acute lung disease. KG showed sinus tachycardia with PACs, and right bundle branch block pattern. Brain CT showed age-related atrophic and chronic small vessel ischemic changes without acute intracranial process. Lab work showed WBC of 9.7, hemoglobin 13.4 , INR of 1.2, sodium is 142, potassium 2.8, chloride is 112, BUN of 25, creatinine is 1.2, plasma lactic acid was 1.7, troponin was negative 1, proBNP was 198. Patient was experiencing urinary retention, patient has required straight catheterization with the straight catheter. We are seeing this patient in evaluation for pulmonary clearance his upcoming surgery for his subcapital femur fracture. Patient is anxious, confused, agitated, is experiencing urinary retention, and she will require Antonio catheter placement, Antonio catheter was placed at the bedside, with return of a large amount of tea- colored urine. Lung sounds are positive for some coarse rhonchi, with expiratory wheezes throughout. Patient is anxious, and tachypneic and this is likely related to his urinary retention. He is is at the bedside, updated on patient's condition. We will start some IV steroids, nebulized bronchodilators, and optimize patient's condition for the upcoming surgery. The patient is seen again today 09/18/2018 in follow-up on the regular medical floor. He is quite anxious. Pulling at his sheets and blankets. Temperature 99.0. Maintaining O2 saturations in the 90s on 5 L/m per nasal cannula. He remains on bronchodilators, antibiotics in the form of ceftriaxone, IV Solu- Medrol. Hemodynamically stable. White count 12.5. Hemoglobin 13.8. Creatinine 0.98. The plan is for repair of the hip fracture today. On 09/19/2018, the patient is calm and comfortable and resting comfortably in bed. The patient underwent his right hip ORIF under spinal anesthesia without any major complications. He did not require to be intubated. Following the surgery, the patient was brought back to his room. Currently has a Antonio catheter in place. A mutually has cleared. He is calm and comfortable. No agitation. No restlessness. As mentioned earlier the patient has significant and severe Alzheimer dementia with cognitive impairment. Family is at the bedside. The patient is currently on Tylenol 3 for pain control. Antonio catheter is in place. He is on DuoNeb nebulized is [id number] and the patient not having any major respiratory difficulties. He is also on Pulmicort Respules 0.5 mg nebulized treatments twice a day. DVT prophylaxis is Xarelto. On today's blood work hemoglobin is stable at 13.3. Normal renal function. No significant electrolyte abnormalities. On 09/20/2018 patient seen in follow-up on medical surgical floor. he is resting comfortably in bed, in no acute distress, currently on 3 L per nasal cannula, his pulse ox is 100%, he is afebrile, hemodynamically stable, lung sounds are clear, diminished at the bases, no rhonchi or wheezes noted on today' s exam. Today is postop day 2 status post right hip hemiarthroplasty with a spinal anesthesia. He denies any pain, denies any shortness of breath, denies any chest pain. Days lab work has been reviewed, WBC is 14.3, hemoglobin is 13.3, sodium is 144, potassium is 3.4, chloride is 109, B1 is 38, and creatinine 0.91. Patient has a Antonio catheter in place that was placed for urinary retention, which is draining jolene colored urine. Urine culture was negative. Objective - Vital Signs Vital signs: Vital Signs Temp 97.8 F 09/20/18 08:43 Pulse 88 09/20/18 12:05 Resp 18 09/20/18 08:43 BP 153/71 09/20/18 08:43 Pulse Ox 100 09/20/18 08:43 Intake & Output 09/19/18 09/20/18 09/20/18 18:59 06:59 18:59 Intake Total 0 450 50 Output Total 1000 450 Balance -1000 0 50 Intake: Intake, IV Titration 400 Amount Lactated Ringers 1,000 ml 400 @ 0 mls/hr IV .[email or web address] ONE Rx#:[id number] Oral 0 50 50 Output: Urine 1000 450 Other: Voiding Method Indwelling Catheter Indwelling Catheter - Exam GENERAL EXAM: Alert, confused 79-year-old white male, on nasal O2 at 3 L. HEAD: Normocephalic/atraumatic. EYES: Normal reaction of pupils, equal size. Conjunctiva pink, sclera white. NOSE: Clear with pink turbinates. THROAT: No erythema or exudates. NECK: No masses, no JVD, no thyroid enlargement, no adenopathy. CHEST: No chest wall deformity. Symmetrical expansion. LUNGS: Clear lung sounds CVS: Regular rate and rhythm, normal S1 and S2, no gallops, no murmurs, no rubs ABDOMEN: Soft, nontender. No hepatosplenomegaly, normal bowel sounds, no guarding or rigidity. EXTREMITIES: No clubbing, no edema, no cyanosis, 2+ pulses and upper and lower extremities. Right hip is painful to exam, with limitation of range of motion, distal pulses are intact. The right hip ORIF site is dry clean and intact. MUSCULOSKELETAL: Muscle strength and tone normal. SPINE: No scoliosis or deformity SKIN: No rashes CENTRAL NERVOUS SYSTEM: Alert and oriented -2. Patient is confused but not agitated on today's exam. - Labs CBC & Chem 7: 09/19/18 10:15 09/19/18 10:15 Labs: Microbiology - Last 24 Hours (Table) 09/18/18 11:15 Urine Culture - Final Urine,Clean Catch Assessment and Plan Plan: Assessment: #1. Acute hypoxic respiratory failure related to acute exacerbation of chronic obstructive pulmonary disease, improving #2. Fall at home, acute right subcapital femoral fracture, status post right hemiarthroplasty, postop day 2 #3. Gait dysfunction #4. History of dementia and cognitive impairment #5. History of coronary artery disease status post four-vessel bypass graft #6. Hypertension, hyperlipidemia #7. History of CVA #8. Former nicotine dependence, currently in remission, patient carries 50-pack -year smoking history #9. Urinary retention, status post Antonio catheter insertion #10. History of enlarged prostate #11. History of previous myocardial infarction Plam: Continue nebulized bronchodilators, encourage incentive spirometry use, patient is working with physical therapy, he has set up on the edge of the bed with assistance, he is weightbearing on the right leg. He denies any pain, no shortness of breath, no fever or chills, no chest pain. His IV steroids have been discontinued, no wheezing, no rhonchi noted on today's exam. He is calm and comfortable, no agitation, Antonio remains in place for his urinary retention. We'll continue to follow I performed a history & physical examination of the patient and discussed their management with my nurse practitioner, Diane Cantu. I reviewed the nurse practitioner's note and agree with the documented findings and plan of care. Lung sounds are clear. The findings and the impression was discussed with the patient. I attest to the documentation by the nurse practitioner. Time with Patient: Less than 30
[2018-09-20 16:22] LABS: Basophils % (A) 0 %; Eosinophils % (A) 1 %; HCT 36.5 % (39.0-53.0); HGB 11.3 gm/dL (13.0-17.5); Hypochromasia Slight; Lymphocytes # (A) 0.3 k/uL (1.0-4.8); Lymphocytes % (A) 5 %; MCH 31.5 pg (25.0-35.0); MCHC 30.9 g/dL (31.0-37.0); MCV 101.9 fL (80.0-100.0); Macrocytosis Slight; Mean Platelet Volume 8.7; Monocytes # (A) 0.5 k/uL (0-1.0); Monocytes % (A) 8 %; Neutrophils # (A) 6.1 k/uL (1.3-7.7); Neutrophils % (A) 86 %; RBC 3.58 m/uL (4.30-5.90); RDW 13.6 % (11.5-15.5); WBC 7.1 k/uL (3.8-10.6)
[2018-09-20 16:28] LABS: Platelet Count 92 k/uL (150-450)
[2018-09-20] MEDS: CLOTRIMAZOLE 1% CREAM 15 GM TUBE TOPICAL SCH ×2 (17:46→21:00)
[2018-09-20] MEDS: SENNOSIDES-DOCUSATE SODIUM 1 EACH TAB PO SCH (20:56)
[2018-09-20] MEDS: SODIUM CHLORIDE 0.9% 1,000 ML IV SCH (21:52)
[2018-09-21] MEDS: BUDESONIDE 0.5 MG/2 ML NEBU INHALATION SCH (08:25)
[2018-09-21] MEDS: FORMOTEROL FUMARATE 20 MCG/2 ML NEBU INHALATION SCH (08:25)
[2018-09-21 08:44] LABS: Amorphous Sediment,Urine Rare /hpf; Appearance,Urine Turbid (Clear); Bacteria,Urine Occasional /hpf; Bilirubin,Urine Negative (Negative); Blood,Urine Moderate (Negative); Color,Urine Yellow; Glucose,Urine (UA) Negative (Negative); Ketones,Urine Negative (Negative); Leukocyte Esterase,Urine Negative (Negative); Mucus,Urine Rare /hpf; Nitrite,Urine Negative (Negative); PH, Urine 7.5 (5.0-8.0); Protein,Urine Trace (Negative); RBC,Urine 50 /hpf (0-5); Specific Gravity,Urine 1.015 (1.001-1.035); Urobilinogen,Urine <2.0 mg/dL (<2.0); WBC,Urine 9 /hpf (0-5)
[2018-09-21] MEDS ORDERED: FAMOTIDINE 20 MG TAB PO SCH (09:00)
--- NOTE | 2018-09-21 09:07 | P.PN ---
Subjective Progress Note Date: 09/21/18 Principal diagnosis: Right hip fracture. Status post hemiarthroplasty right hip. This is an 87-year-old male who is status post hemiarthroplasty of the right hip for subcapital hip fracture. He is stable from an orthopedic standpoint. He has confusion. Vital signs are stable. Objective - Vital Signs Vital signs: Vital Signs Temp 97.8 F 09/20/18 19:48 Pulse 90 09/20/18 21:19 Resp 18 09/20/18 19:48 BP 143/89 09/20/18 19:48 Pulse Ox 90 L 09/20/18 19:48 Intake & Output 09/20/18 09/21/18 09/21/18 18:59 06:59 18:59 Intake Total 50 100 Output Total 900 1025 Balance -850 -925 Intake: Oral 50 100 Output: Urine 900 1025 Other: Voiding Method Indwelling Catheter Indwelling Catheter Indwelling Catheter # Bowel Movements 1 - Exam This is a pleasant 87-year-old gentleman in no acute distress. He is significantly confused this morning. Exam of the right hip reveals that his dressing is clean, dry and intact. He is unable to follow commands appropriately. Pedal pulses +2/4. Neurovascular status to the lower extremity is intact. - Labs CBC & Chem 7: 09/20/18 15:51 09/19/18 10:15 Labs: Abnormal Lab Results - Last 24 Hours (Table) 09/20/18 09/21/18 Range/Units 15:51 07:24 RBC 3.58 L (4.30-5.90) m/uL Hgb 11.3 L (13.0-17.5) gm/dL Hct 36.5 L (39.0-53.0) % MCV 101.9 H (80.0-100.0) fL MCHC 30.9 L (31.0-37.0) g/dL Plt Count 92 L (150-450) k/uL Lymphocytes # 0.3 L (1.0-4.8) k/uL Urine Protein Trace H (Negative) Urine Blood Moderate H (Negative) Urine RBC 50 H (0-5) /hpf Urine WBC 9 H (0-5) /hpf Amorphous Sediment Rare H (None) /hpf Urine Bacteria Occasional H (None) /hpf Urine Mucus Rare H (None) /hpf Assessment and Plan (1) Closed right hip fracture Current Visit: Yes Status: Acute Code(s): S72.001A - FRACTURE OF UNSP PART OF NECK OF RIGHT FEMUR, INIT SNOMED Code(s): 534492863 (2) Altered mental status Current Visit: No Status: Acute Code(s): R41.82 - ALTERED MENTAL STATUS, UNSPECIFIED SNOMED Code(s): 556577332 Plan: The clinical findings are discussed with nursing staff. They report that his confusion is fairly baseline for him. Continue orthopedic care. May d/c when cleared medically.
[2018-09-21] MEDS ORDERED: cefTRIAXone 1,000 MG VIAL (IM USE) IM STA (09:12)
[2018-09-21] MEDS: ISOSORBIDE MONONITRATE ER 30 MG TAB.ER.24H PO SCH (09:15)
[2018-09-21] MEDS: MEMANTINE 10 MG TAB PO SCH (09:15)
[2018-09-21] MEDS: ASPIRIN 81 MG PO SCH (09:15)
[2018-09-21] MEDS: TAMSULOSIN 0.4 MG CAP.ER.24H PO SCH (09:15)
[2018-09-21] MEDS: METOPROLOL TARTRATE 25 MG TAB PO SCH (09:15)
[2018-09-21] MEDS: FERROUS SULFATE 325 MG TAB PO SCH (09:15)
[2018-09-21] MEDS: CYANOCOBALAMIN 500 MCG TAB PO SCH (09:15)
[2018-09-21] MEDS: ATORVASTATIN 40 MG TAB PO SCH (09:15)
[2018-09-21] MEDS: RIVAROXABAN 10 MG TAB PO SCH (09:16)
[2018-09-21] MEDS: MULTIVITAMINS, THERA 1 EACH TAB PO SCH (09:16)
[2018-09-21] MEDS: amLODIPine 10 MG TAB PO SCH (09:16)
[2018-09-21] MEDS: SODIUM CHLORIDE 0.9% 1,000 ML IV SCH (09:17)
[2018-09-21] MEDS: CLOTRIMAZOLE 1% CREAM 15 GM TUBE TOPICAL SCH (09:17)
--- NOTE | 2018-09-21 11:51 | P.PN ---
Subjective Progress Note Date: 09/21/18 Principal diagnosis: Fall right hip fracture This is a 79-year-old white male patient who follows with Dr. Sheppard in the pulmonary office for his history of emphysema, sustained a fall at home, patient has balance issues related to his previous history of stroke, patient has lost his balance, and fell onto his right side, and was not able to walk due to right hip pain. He was brought into the emergency room for evaluation, x -ray of the right hip showed acute subcapital fracture of the right femur. He is known to have history of moderately severe dementia, COPD, GERD/reflux, hypertension, hyperlipidemia, previous episode of myocardial infarction, CVA, dysfunction, prostate enlargement, previous history of coronary artery bypass grafting in 2001, patient is a former smoker, quit in 2000, after having smoked for 50 years 1 pack a day. Patient is on nebulized Pulmicort, Perforomist, DuoNeb as his maintenance nebulized treatments at home. Asked x-ray was reviewed and showed COPD and pulmonary fibrosis, no acute lung disease. KG showed sinus tachycardia with PACs, and right bundle branch block pattern. Brain CT showed age-related atrophic and chronic small vessel ischemic changes without acute intracranial process. Lab work showed WBC of 9.7, hemoglobin 13.4 , INR of 1.2, sodium is 142, potassium 2.8, chloride is 112, BUN of 25, creatinine is 1.2, plasma lactic acid was 1.7, troponin was negative 1, proBNP was 198. Patient was experiencing urinary retention, patient has required straight catheterization with the straight catheter. We are seeing this patient in evaluation for pulmonary clearance his upcoming surgery for his subcapital femur fracture. Patient is anxious, confused, agitated, is experiencing urinary retention, and she will require Antonio catheter placement, Antonio catheter was placed at the bedside, with return of a large amount of tea- colored urine. Lung sounds are positive for some coarse rhonchi, with expiratory wheezes throughout. Patient is anxious, and tachypneic and this is likely related to his urinary retention. He is is at the bedside, updated on patient's condition. We will start some IV steroids, nebulized bronchodilators, and optimize patient's condition for the upcoming surgery. The patient is seen again today 09/18/2018 in follow-up on the regular medical floor. He is quite anxious. Pulling at his sheets and blankets. Temperature 99.0. Maintaining O2 saturations in the 90s on 5 L/m per nasal cannula. He remains on bronchodilators, antibiotics in the form of ceftriaxone, IV Solu- Medrol. Hemodynamically stable. White count 12.5. Hemoglobin 13.8. Creatinine 0.98. The plan is for repair of the hip fracture today. On 09/19/2018, the patient is calm and comfortable and resting comfortably in bed. The patient underwent his right hip ORIF under spinal anesthesia without any major complications. He did not require to be intubated. Following the surgery, the patient was brought back to his room. Currently has a Antonio catheter in place. A mutually has cleared. He is calm and comfortable. No agitation. No restlessness. As mentioned earlier the patient has significant and severe Alzheimer dementia with cognitive impairment. Family is at the bedside. The patient is currently on Tylenol 3 for pain control. Antonio catheter is in place. He is on DuoNeb nebulized is [id number] and the patient not having any major respiratory difficulties. He is also on Pulmicort Respules 0.5 mg nebulized treatments twice a day. DVT prophylaxis is Xarelto. On today's blood work hemoglobin is stable at 13.3. Normal renal function. No significant electrolyte abnormalities. On 09/20/2018 patient seen in follow-up on medical surgical floor. he is resting comfortably in bed, in no acute distress, currently on 3 L per nasal cannula, his pulse ox is 100%, he is afebrile, hemodynamically stable, lung sounds are clear, diminished at the bases, no rhonchi or wheezes noted on today' s exam. Today is postop day 2 status post right hip hemiarthroplasty with a spinal anesthesia. He denies any pain, denies any shortness of breath, denies any chest pain. Days lab work has been reviewed, WBC is 14.3, hemoglobin is 13.3, sodium is 144, potassium is 3.4, chloride is 109, B1 is 38, and creatinine 0.91. Patient has a Antonio catheter in place that was placed for urinary retention, which is draining jolene colored urine. Urine culture was negative. On 08/25 thousand 18 patient seen in follow-up on medical surgical floor. He is resting comfortably in bed, no shortness of breath, no chest pain. Room air pulse ox is 90%, he is calm and comfortable, in no acute distress. Afebrile, vital signs are stable. Lung sounds are clear to auscultation, no rhonchi, no wheezes. His incentive spirometer effort is about 500 today. Patient requires a lot of coaching to do his incentive spirometry. He is working with physical therapy. Objective - Vital Signs Vital signs: Vital Signs Temp 98.2 F 09/21/18 09:10 Pulse 77 09/21/18 09:10 Resp 18 09/21/18 09:10 BP 145/85 09/21/18 09:10 Pulse Ox 90 L 09/21/18 09:10 Intake & Output 09/20/18 09/21/18 09/21/18 18:59 06:59 18:59 Intake Total 50 100 100 Output Total 900 1025 Balance -850 -925 100 Intake: Oral 50 100 100 Output: Urine 900 1025 Other: Voiding Method Indwelling Catheter Indwelling Catheter Indwelling Catheter # Bowel Movements 1 - Exam GENERAL EXAM: Alert, confused 79-year-old white male, on room air HEAD: Normocephalic/atraumatic. EYES: Normal reaction of pupils, equal size. Conjunctiva pink, sclera white. NOSE: Clear with pink turbinates. THROAT: No erythema or exudates. NECK: No masses, no JVD, no thyroid enlargement, no adenopathy. CHEST: No chest wall deformity. Symmetrical expansion. LUNGS: Clear lung sounds CVS: Regular rate and rhythm, normal S1 and S2, no gallops, no murmurs, no rubs ABDOMEN: Soft, nontender. No hepatosplenomegaly, normal bowel sounds, no guarding or rigidity. EXTREMITIES: No clubbing, no edema, no cyanosis, 2+ pulses and upper and lower extremities. Right hip is painful to exam, with limitation of range of motion, distal pulses are intact. The right hip ORIF site is dry clean and intact. MUSCULOSKELETAL: Muscle strength and tone normal. SPINE: No scoliosis or deformity SKIN: No rashes CENTRAL NERVOUS SYSTEM: Alert and oriented -2. Patient is confused but not agitated on today's exam. - Labs CBC & Chem 7: 09/20/18 15:51 09/19/18 10:15 Labs: Abnormal Lab Results - Last 24 Hours (Table) 09/20/18 09/21/18 Range/Units 15:51 07:24 RBC 3.58 L (4.30-5.90) m/uL Hgb 11.3 L (13.0-17.5) gm/dL Hct 36.5 L (39.0-53.0) % MCV 101.9 H (80.0-100.0) fL MCHC 30.9 L (31.0-37.0) g/dL Plt Count 92 L (150-450) k/uL Lymphocytes # 0.3 L (1.0-4.8) k/uL Urine Protein Trace H (Negative) Urine Blood Moderate H (Negative) Urine RBC 50 H (0-5) /hpf Urine WBC 9 H (0-5) /hpf Amorphous Sediment Rare H (None) /hpf Urine Bacteria Occasional H (None) /hpf Urine Mucus Rare H (None) /hpf Assessment and Plan Plan: Assessment: #1. Acute hypoxic respiratory failure related to acute exacerbation of chronic obstructive pulmonary disease, improving #2. Fall at home, acute right subcapital femoral fracture, status post right hemiarthroplasty, postop day 3 #3. Gait dysfunction #4. History of dementia and cognitive impairment #5. History of coronary artery disease status post four-vessel bypass graft #6. Hypertension, hyperlipidemia #7. History of CVA #8. Former nicotine dependence, currently in remission, patient carries 50-pack -year smoking history #9. Urinary retention, status post Antonio catheter insertion #10. History of enlarged prostate #11. History of previous myocardial infarction Plam: No specific complaints, no distress, no worsening shortness of breath no chest pain. Incentive stable, patient is on room air, lung sounds are clear. Is confused, but not agitated. Maintain aspiration precautions, continue with current medical treatment, nebulized bronchodilators, coverage patient to deep breathe and cough, and use of incentive spirometry. From pulmonary perspective patient is stable, anticipate discharge to subacute rehab soon. I performed a history & physical examination of the patient and discussed their management with my nurse practitioner, Diane Cantu. I reviewed the nurse practitioner's note and agree with the documented findings and plan of care. Lung sounds are clear. The findings and the impression was discussed with the patient. I attest to the documentation by the nurse practitioner. Time with Patient: Less than 30
[2018-09-21] MEDS: IPRATROPIUM-ALBUTEROL 3 ML NEB INHALATION PRN (12:31)
--- NOTE | 2018-09-21 12:47 | P.DS ---
Providers Date of admission: 09/16/18 22:49 Attending physician: Charles Shannon Consults: 09/16/18 22:42 Consult Physician Routine Consulting Provider: Seth Sheppard Consult Reason/Comments: Your patient. COPD/fibrosis Do you want consulting provider notified?: Yes Consult Physician Routine Consulting Provider: Mitul Anglin Consult Reason/Comments: Subcapital femoral neck fracture, right hip Do you want consulting provider notified?: Yes 09/17/18 12:10 Consult Physician Routine Consulting Provider: Gato Richey Consult Reason/Comments: cardiac clearance for surgery Do you want consulting provider notified?: Yes 09/17/18 12:12 Consult Physician Routine Consulting Provider: Nick Vaughn Consult Reason/Comments: Hematuria Do you want consulting provider notified?: Yes Primary care physician: [facility] Course: This is a pleasant 87 years old female with past medical history of COPD, CVA/ TIA, dementia, GERD, hyperlipidemia, essential hypertension, coronary artery disease, status post CABG who follows up with Dr. Sarmiento., who presents with fall with hip fracture. Also patient noted to have hematuria. Patient is poor historian and could not provide history even at baseline. However his more agitated. Patient could not provide information so it was taken up from the medical staff and at bedside. As per patient has baseline dementia and sometimes he can recognize the and sometimes not. However he can ask for his food and cleaning himself and actually he can do these things by himself and yesterday he was walking to the living room when the heard him fall. She came to the room and he was fully awake but he could not movement was complaining of pain is his right hip area. So she called the doctor and brought him to the emergency room. When he found he has a right hip fracture, associated with hematuria. As per patient was following up with Dr. Vaughn urologist before for urinary retention but he did not have hematuria before. Patient has been evaluated by orthopedic team.Patient is status post right hip arthroplasty yesterday on 09/18/2018. Leukocytosis improved to normal. Echocardiogram: EF 55-60% with borderline LVH. Baseline of patient is confusion related to his dementia. repeat UA: pending . Leukocytosis improved. Echocardiogram: EF 55-60% with borderline LVH. Baseline of patient is confusion related to his dementia. Patient will be discharged on Antonio catheter , was placed for his hematuria. He is on xarelto For DVT prophylaxis and his hemoglobin is stable. IV Solu-Medrol was discontinued. Continue with a breathing treatment. His antihypertensive medications were adjusted and his blood pressure is better controlled now. He'll be discharged on oral antibiotics for possible UTI. Patient will be [facility] to [facility]. Patient is being cleared by orthopedic and pulmonary team for discharge Patient is found stable to be discharging guarded prognosis. However he needs follow-up as an outpatient. physical exam Gen.: Patient alert awake and oriented X 3, NOT IN DISTRESS CVS: s1-s2, RRR, no murmur CHEST:bilateral CTA, no wheezing or crepitation Abdomen: Soft, no tenderness, no distention, positive bowel sounds Extremities: No leg edema or induration. Right hip wound is clean with no discharge or cellulitis Time spent more than 35 minutes Patient Condition at Discharge: Poor Plan - Discharge Summary Discharge Rx Participant: No New Discharge Prescriptions: New Acetaminophen-Codeine 300-30mg [Tylenol w/codeine #3] 1 - 2 tab PO Q4-6H PRN 7 Days #50 tablet PRN Reason: Pain amLODIPine [Norvasc] 10 mg PO DAILY tab Artificial Tears-Hypromellose [Artificial Tear Drops] 2 drops BOTH EYES QID PRN bottle PRN Reason: Dry Eye(S) Cephalexin [Keflex] 500 mg PO Q8HR 5 Days #15 cap Famotidine [Pepcid] 20 mg PO DAILY tab Metoprolol Tartrate [Lopressor] 25 mg PO BID tab Rivaroxaban [Xarelto] 10 mg PO DAILY tab Sennosides-Docusate Sodium [Senokot-S] 2 each PO HS tab Continue Vit C/E/Zn/Coppr/Lutein/Zeaxan [Preservision Areds 2 Softgel] 1 cap PO DAILY Isosorbide Mononitrate [Isosorbide Mononitrate ER] 30 mg PO DAILY Cyanocobalamin [Vitamin B-12] 1,000 mcg PO DAILY Aspirin 81 mg PO DAILY Memantine [Namenda] 10 mg PO BID Ferrous Sulfate [Iron (65 MG Elemental)] 325 mg PO DAILY Tamsulosin [Flomax] 0.4 mg PO DAILY #30 cap Clotrimazole Cream [Lotrimin Cream] 1 applic TOPICAL BID Ipratropium-Albuterol Nebulize [Duoneb 0.5 mg-3 mg/3 ml Soln] 3 ml INHALATION RT-QID PRN PRN Reason: Shortness Of Breath Atorvastatin [Lipitor] 40 mg PO DAILY Formoterol Fumarate [Perforomist] 20 mcg INHALATION RT-BID Budesonide [Pulmicort] 0.5 mg INHALATION RT-BID Discontinued amLODIPine [Norvasc] 5 mg PO DAILY Discharge Medication List Aspirin 81 mg PO DAILY 12/08/15 [History] Cyanocobalamin [Vitamin B-12] 1,000 mcg PO DAILY 12/08/15 [History] Isosorbide Mononitrate [Isosorbide Mononitrate ER] 30 mg PO DAILY 12/08/15 [ History] Memantine [Namenda] 10 mg PO BID 12/08/15 [History] Vit C/E/Zn/Coppr/Lutein/Zeaxan [Preservision Areds 2 Softgel] 1 cap PO DAILY [History] Ferrous Sulfate [Iron (65 MG Elemental)] 325 mg PO DAILY 10/10/16 [History] Tamsulosin [Flomax] 0.4 mg PO DAILY #30 cap 10/11/16 [Rx] Atorvastatin [Lipitor] 40 mg PO DAILY 03/29/18 [History] Budesonide [Pulmicort] 0.5 mg INHALATION RT-BID 03/29/18 [History] Clotrimazole Cream [Lotrimin Cream] 1 applic TOPICAL BID 03/29/18 [History] Formoterol Fumarate [Perforomist] 20 mcg INHALATION RT-BID 03/29/18 [History] Ipratropium-Albuterol Nebulize [Duoneb 0.5 mg-3 mg/3 ml Soln] 3 ml INHALATION RT -QID PRN 03/29/18 [History] Acetaminophen-Codeine 300-30mg [Tylenol w/codeine #3] 1 - 2 tab PO Q4-6H PRN 7 Days #50 tablet 09/21/18 [Rx] Artificial Tears-Hypromellose [Artificial Tear Drops] 2 drops BOTH EYES QID PRN bottle 09/21/18 [Rx] Cephalexin [Keflex] 500 mg PO Q8HR 5 Days #15 cap 09/21/18 [Rx] Famotidine [Pepcid] 20 mg PO DAILY tab 09/21/18 [Rx] Metoprolol Tartrate [Lopressor] 25 mg PO BID tab 09/21/18 [Rx] Rivaroxaban [Xarelto] 10 mg PO DAILY tab 09/21/18 [Rx] Sennosides-Docusate Sodium [Senokot-S] 2 each PO HS tab 09/21/18 [Rx] amLODIPine [Norvasc] 10 mg PO DAILY tab 09/21/18 [Rx] Follow up Appointment(s)/Referral(s): Beronica Triplett PAC [PHYSICIAN SITE LEASING AGENT] - 10/04/18 10:00 am Gato Richey MD [STAFF PHYSICIAN] - 10/05/18 9:00 am Seth Sheppard DO [Primary Care Provider] - 1-2 days (Will need to follow up when discharged from ECF) Nick Vaughn MD [STAFF PHYSICIAN] - 10/12/18 9:45 am Desmond hawk [facility], [NON-STAFF] - As Needed Activity/Diet/Wound Care/Special Instructions: Date diet Discharge Disposition: TRANSFER TO SNF/ECF
[2018-09-21 15:20] VITALS: BP 125/69; PULSE 64; TEMP 99.4
[2018-09-21] MEDS: Acetaminophen-Codeine 300-30mg TAB PO PRN (15:52)
== END 2018-09-21 18:14 | DRG 469 ==
LOC: EC 20:33 → 4SSUR 22:49
PROVIDERS: ADMIT Hospitalist; ATTEND Hospitalist
PROC: 0SRR0J9 Replacement of Right Hip Joint, Femoral Surface with Synthetic Substitute, Cemented, Open Approach (ICD-10-PCS; principal; 2018-09-18 14:00)
DX: S72.011A Unspecified intracapsular fracture of right femur, initial encounter for closed fracture (principal); J96.01 Acute respiratory failure with hypoxia; J44.1 Chronic obstructive pulmonary disease with (acute) exacerbation; M25.00 Hemarthrosis, unspecified joint; Y92.009 Unspecified place in unspecified non-institutional (private) residence as the place of occurrence of the external cause; W18.30XA Fall on same level, unspecified, initial encounter; D72.829 Elevated white blood cell count, unspecified; E78.5 Hyperlipidemia, unspecified; F02.80 Dementia in other diseases classified elsewhere, unspecified severity, without behavioral disturbance, psychotic disturbance, mood disturbance, and anxiety; G30.9 Alzheimer's disease, unspecified; I10 Essential (primary) hypertension; I25.10 Atherosclerotic heart disease of native coronary artery without angina pectoris; I25.2 Old myocardial infarction; I27.20 Pulmonary hypertension, unspecified; I45.10 Unspecified right bundle-branch block; J84.10 Pulmonary fibrosis, unspecified; K21.9 Gastro-esophageal reflux disease without esophagitis; N40.1 Benign prostatic hyperplasia with lower urinary tract symptoms; T83.091A Other mechanical complication of indwelling urethral catheter, initial encounter; R31.0 Gross hematuria; R33.8 Other retention of urine; Z79.01 Long term (current) use of anticoagulants; Z79.82 Long term (current) use of aspirin; Z79.899 Other long term (current) drug therapy; Z82.49 Family history of ischemic heart disease and other diseases of the circulatory system; Z86.73 Personal history of transient ischemic attack (TIA), and cerebral infarction without residual deficits; Z87.891 Personal history of nicotine dependence; Z91.81 History of falling; Z95.1 Presence of aortocoronary bypass graft; R00.0 Tachycardia, unspecified
CPT/HCPCS: 36415; 70450; 71046; 73501; 73502; 80048; 80053; 81001; 82550; 82553; 83605; 83735; 83880; 84484; 85025; 85610; 85730; 87086; 88305; 88311; 93005; 93306; 94640; 94760; 99285

== ENCOUNTER 2018-09-26 16:27 | Inpatient (IN) | payer MEDICARE ==
[2018-09-26] MEDS ORDERED: SODIUM CHLORIDE 0.9% 1,000 ML IV ONE (16:31)
[2018-09-26] MEDS ORDERED: SODIUM CHLORIDE 0.9% 500 ML 500 ML IV ONE (16:31)
[2018-09-26] MEDS ORDERED: SODIUM CHLORIDE 0.9% 1,000 ML IV STA (16:31)
--- NOTE | 2018-09-26 16:40 | ED ---
Altered Mental Status HPI - General Stated Complaint: altered Time Seen by Provider: 09/26/18 16:27 Source: family, EMS, RN notes reviewed, old records reviewed - History of Present Illness Initial Comments: This is a 79-year-old male history of dementia among other problems including a right hip surgery 1 week ago who is brought in for evaluation of decreased level of consciousness. He currently stopped over a wheelchair and was briefly unresponsive with low pulse oximetry Parker uncooperative no reports of fevers chills nausea vomiting sweats trauma or other symptoms. He did apparently fall at 4 AM this morning. He did fall out of the wheelchair but was caught before he could hit the floor. When he was helped back into bed he was unresponsive for a period of time. MD Complaint: altered mental status, decreased responsiveness - Related Data Home Medications Medication Instructions Recorded Confirmed Aspirin 81 mg PO DAILY 12/08/15 09/16/18 Cyanocobalamin [Vitamin B-12] 1,000 mcg PO DAILY 12/08/15 09/16/18 Isosorbide Mononitrate [Isosorbide 30 mg PO DAILY 12/08/15 09/16/18 Mononitrate ER] Memantine [Namenda] 10 mg PO BID 12/08/15 09/16/18 Vit C/E/Zn/Coppr/Lutein/Zeaxan 1 cap PO DAILY 12/08/15 09/16/18 [Preservision Areds 2 Softgel] Ferrous Sulfate [Iron (65 MG 325 mg PO DAILY 10/10/16 09/16/18 Elemental)] Atorvastatin [Lipitor] 40 mg PO DAILY 03/29/18 09/16/18 Budesonide [Pulmicort] 0.5 mg INHALATION RT-BID 03/29/18 09/16/18 Clotrimazole Cream [Lotrimin Cream] 1 applic TOPICAL BID 03/29/18 09/16/18 Formoterol Fumarate [Perforomist] 20 mcg INHALATION RT-BID 03/29/18 09/16/18 Ipratropium-Albuterol Nebulize 3 ml INHALATION RT-QID PRN 03/29/18 09/16/18 [Duoneb 0.5 mg-3 mg/3 ml Soln] Previous Rx's Medication Instructions Recorded Tamsulosin [Flomax] 0.4 mg PO DAILY #30 cap 10/11/16 Acetaminophen-Codeine 300-30mg 1 - 2 tab PO Q4-6H PRN 7 Days #50 09/21/18 [Tylenol w/codeine #3] tablet Artificial Tears-Hypromellose 2 drops BOTH EYES QID PRN bottle 09/21/18 [Artificial Tear Drops] Cephalexin [Keflex] 500 mg PO Q8HR 5 Days #15 cap 09/21/18 Famotidine [Pepcid] 20 mg PO DAILY tab 09/21/18 Metoprolol Tartrate [Lopressor] 25 mg PO BID tab 09/21/18 Rivaroxaban [Xarelto] 10 mg PO DAILY tab 09/21/18 Sennosides-Docusate Sodium 2 each PO HS tab 09/21/18 [Senokot-S] amLODIPine [Norvasc] 10 mg PO DAILY tab 09/21/18 Allergies Allergy/AdvReac Type Severity Reaction Status Date / Time No Known Allergies Allergy Verified 09/16/18 22:11 Review of Systems ROS Statement: Those systems with pertinent positive or pertinent negative responses have been documented in the HPI. ROS Other: All systems not noted in ROS Statement are negative. Past Medical History Past Medical History: COPD, CVA/TIA, Dementia, GERD/Reflux, Hyperlipidemia, Hypertension, Myocardial Infarction ([place]) Additional Past Medical History / Comment(s): dementia diagnosed 2014, acute renal failure , e cloi in blood 12-08-15, sepsis(per micro) BPH with chronic incomplete bladder emptying Last Myocardial Infarction Date:: 2000 History of Any Multi-Drug Resistant Organisms: None Reported Past Surgical History: Coronary Bypass/CABG, Hernia Repair Additional Past Surgical History / Comment(s): heart surgery in 2001, lt ear titanium implant, lt scalp skin lesion removed thu-no result on it yet, four hernia repair Past Anesthesia/Blood Transfusion Reactions: No Reported Reaction Past Psychological History: No Psychological Hx Reported Smoking Status: Former smoker Past Alcohol Use History: None Reported Additional Past Alcohol Use History / Comment(s): smoked x 50 years, 1 ppd, quit 2000 Past Drug Use History: None Reported - Past Family History Father Family Medical History: Congestive Heart Failure (CHF) Mother Family Medical History: Pneumonia Additional Family Medical History / Comment(s): mom lived to be age 94 from complications of pne General Exam - General Exam Comments Initial Comments: This is a well-developed asthenic appearing male who was awake but confused General appearance: alert, in no apparent distress Head exam: Present: atraumatic, normocephalic, normal inspection Eye exam: Present: normal appearance, PERRL, EOMI. Absent: scleral icterus, conjunctival injection, periorbital swelling ENT exam: Present: mucous membranes dry Neck exam: Present: normal inspection. Absent: tenderness, meningismus, lymphadenopathy Respiratory exam: Present: normal lung sounds bilaterally. Absent: respiratory distress, wheezes, rales, rhonchi, stridor Cardiovascular Exam: Present: regular rate, normal rhythm, normal heart sounds. Absent: systolic murmur, diastolic murmur, rubs, gallop, clicks GI/Abdominal exam: Present: soft, normal bowel sounds. Absent: distended, tenderness, guarding, rebound, rigid Extremities exam: Present: normal inspection, full ROM, normal capillary refill. Absent: tenderness, pedal edema, joint swelling, calf tenderness Back exam: Present: normal inspection Neurological exam: Present: alert, oriented X3, CN II-XII intact Psychiatric exam: Present: normal affect, normal mood Skin exam: Present: warm, dry, intact, normal color. Absent: rash Course Vital Signs 09/26/18 16:38 Temperature 97.7 F Pulse Rate 82 Respiratory 18 Rate Blood Pressure 121/65 O2 Sat by Pulse 95 Oximetry Medical Decision Making - Medical Decision Making Reevaluation patient reveals no change in his mental status he is still confused and pulling at things. I did inspect his right hip repair site erythema. Be intact at this time. Due to his hypernatremia and dehydration state as well as the above also she will be admitted for hydration and further evaluation. - Lab Data Result diagrams: 09/26/18 17:21 09/26/18 17:21 Lab Results 09/26/18 09/26/18 09/26/18 Range/Units 17:21 17:21 17:21 WBC 10.7 H (3.8-10.6) k/uL RBC 3.46 L (4.30-5.90) m/uL Hgb 11.1 L (13.0-17.5) gm/dL Hct 34.1 L (39.0-53.0) % MCV 98.5 (80.0-100.0) fL MCH 32.1 (25.0-35.0) pg MCHC 32.6 (31.0-37.0) g/dL RDW 14.4 (11.5-15.5) % Plt Count 186 D (150-450) k/uL Neutrophils % 88 % Lymphocytes % 6 % Monocytes % 5 % Eosinophils % 1 % Basophils % 0 % Neutrophils # 9.4 H (1.3-7.7) k/uL Lymphocytes # 0.6 L (1.0-4.8) k/uL Monocytes # 0.5 (0-1.0) k/uL Eosinophils # 0.1 (0-0.7) k/uL Basophils # 0.0 (0-0.2) k/uL Sodium 155 H (137-145) mmol/L Potassium 4.0 (3.5-5.1) mmol/L Chloride 126 H (98-107) mmol/L Carbon Dioxide 25 (22-30) mmol/L Anion Gap 4 mmol/L BUN 61 H (9-20) mg/dL Creatinine 1.13 (0.66-1.25) mg/dL Est GFR (CKD-EPI)AfAm 67 (>60 ml/min/1.73 sqM) Est GFR (CKD-EPI)NonAf 58 (>60 ml/min/1.73 sqM) Glucose 138 H (74-99) mg/dL Calcium 8.8 (8.4-10.2) mg/dL Magnesium 2.5 H (1.6-2.3) mg/dL Total Bilirubin 1.4 H (0.2-1.3) mg/dL AST 45 (17-59) U/L ALT 49 (21-72) U/L Alkaline Phosphatase 84 (38-126) U/L Total Creatine Kinase 604 H (55-170) U/L CK-MB (CK-2) 4.4 H (0.0-2.4) ng/mL CK-MB (CK-2) Rel Index 0.7 Troponin I 0.019 (0.000-0.034) ng/mL Total Protein 5.3 L (6.3-8.2) g/dL Albumin 3.0 L (3.5-5.0) g/dL Amylase 32 (30-110) U/L Lipase 109 (23-300) U/L Urine Color Urine Appearance (Clear) Urine pH (5.0-8.0) Ur Specific Norman (1.001-1.035) Urine Protein (Negative) Urine Glucose (UA) (Negative) Urine Ketones (Negative) Urine Blood (Negative) Urine Nitrite (Negative) Urine Bilirubin (Negative) Urine Urobilinogen (<2.0) mg/dL Ur Leukocyte Esterase (Negative) Urine RBC (0-5) /hpf Urine WBC (0-5) /hpf Amorphous Sediment (None) /hpf Hyaline Casts (0-2) /lpf Urine Mucus (None) /hpf 09/26/18 Range/Units 17:21 WBC (3.8-10.6) k/uL RBC (4.30-5.90) m/uL Hgb (13.0-17.5) gm/dL Hct (39.0-53.0) % MCV (80.0-100.0) fL MCH (25.0-35.0) pg MCHC (31.0-37.0) g/dL RDW (11.5-15.5) % Plt Count (150-450) k/uL Neutrophils % % Lymphocytes % % Monocytes % % Eosinophils % % Basophils % % Neutrophils # (1.3-7.7) k/uL Lymphocytes # (1.0-4.8) k/uL Monocytes # (0-1.0) k/uL Eosinophils # (0-0.7) k/uL Basophils # (0-0.2) k/uL Sodium (137-145) mmol/L Potassium (3.5-5.1) mmol/L Chloride (98-107) mmol/L Carbon Dioxide (22-30) mmol/L Anion Gap mmol/L BUN (9-20) mg/dL Creatinine (0.66-1.25) mg/dL Est GFR (CKD-EPI)AfAm (>60 ml/min/1.73 sqM) Est GFR (CKD-EPI)NonAf (>60 ml/min/1.73 sqM) Glucose (74-99) mg/dL Calcium (8.4-10.2) mg/dL Magnesium (1.6-2.3) mg/dL Total Bilirubin (0.2-1.3) mg/dL AST (17-59) U/L ALT (21-72) U/L Alkaline Phosphatase (38-126) U/L Total Creatine Kinase (55-170) U/L CK-MB (CK-2) (0.0-2.4) ng/mL CK-MB (CK-2) Rel Index Troponin I (0.000-0.034) ng/mL Total Protein (6.3-8.2) g/dL Albumin (3.5-5.0) g/dL Amylase (30-110) U/L Lipase (23-300) U/L Urine Color Yellow Urine Appearance Cloudy (Clear) Urine pH 5.5 (5.0-8.0) Ur Specific Norman 1.022 (1.001-1.035) Urine Protein 1+ H (Negative) Urine Glucose (UA) Negative (Negative) Urine Ketones Negative (Negative) Urine Blood Large H (Negative) Urine Nitrite Negative (Negative) Urine Bilirubin Negative (Negative) Urine Urobilinogen <2.0 (<2.0) mg/dL Ur Leukocyte Esterase Negative (Negative) Urine RBC 143 H (0-5) /hpf Urine WBC 2 (0-5) /hpf Amorphous Sediment Occasional H (None) /hpf Hyaline Casts 15 H (0-2) /lpf Urine Mucus Rare H (None) /hpf - EKG Data -: EKG Interpreted by Nh EKG shows normal: sinus rhythm (Sinus rhythm rate of 81. Interval 150 to QRS duration 1:30 QT since QTC 440/511" block pattern nonspecific inferior changes of undetermined age.) - Radiology Data Radiology results: report reviewed (I did review the imaging and report no acute findings.), image reviewed Disposition Clinical Impression: Acute confusional state of metabolic origin, Dehydration, Hypernatremia Disposition: ADMITTED IP TO THIS [facility] Condition: Stable Referrals: Martín Vanessa MD [Primary Care Provider] - 1-2 days
[2018-09-26 17:52] LABS: Amorphous Sediment,Urine Occasional /hpf; Appearance,Urine Cloudy (Clear); Bilirubin,Urine Negative (Negative); Blood,Urine Large (Negative); Color,Urine Yellow; Glucose,Urine (UA) Negative (Negative); Hyaline Casts,Urine 15 /lpf (0-2); Ketones,Urine Negative (Negative); Leukocyte Esterase,Urine Negative (Negative); Mucus,Urine Rare /hpf; Nitrite,Urine Negative (Negative); PH, Urine 5.5 (5.0-8.0); Protein,Urine 1+ (Negative); RBC,Urine 143 /hpf (0-5); Specific Gravity,Urine 1.022 (1.001-1.035); Urobilinogen,Urine <2.0 mg/dL (<2.0); WBC,Urine 2 /hpf (0-5)
[2018-09-26 17:54] LABS: Basophils % (A) 0 %; Eosinophils # (A) 0.1 k/uL (0-0.7); Eosinophils % (A) 1 %; HCT 34.1 % (39.0-53.0); HGB 11.1 gm/dL (13.0-17.5); Lymphocytes # (A) 0.6 k/uL (1.0-4.8); Lymphocytes % (A) 6 %; MCH 32.1 pg (25.0-35.0); MCHC 32.6 g/dL (31.0-37.0); MCV 98.5 fL (80.0-100.0); Mean Platelet Volume 9.2; Monocytes # (A) 0.5 k/uL (0-1.0); Monocytes % (A) 5 %; Neutrophils # (A) 9.4 k/uL (1.3-7.7); Neutrophils % (A) 88 %; RBC 3.46 m/uL (4.30-5.90); RDW 14.4 % (11.5-15.5); WBC 10.7 k/uL (3.8-10.6)
[2018-09-26 17:55] LABS: Platelet Count 186 k/uL (150-450)
[2018-09-26 18:02] LABS: Calcium 8.8 mg/dL (8.4-10.2); Magnesium 2.5 mg/dL (1.6-2.3); Total Bilirubin 1.4 mg/dL (0.2-1.3); Total Protein 5.3 g/dL (6.3-8.2)
--- NOTE | 2018-09-26 18:11 | CT ---
EXAMINATION TYPE: CT brain wo con DATE OF EXAM: 09/26/2018 COMPARISON: 09/17/2018 INDICATION: Altered mental status. DLP: 1178.4 mGycm, Automated exposure control for dose reduction was used. CONTRAST: None CT of the brain is performed utilizing 3 mm thick sections through the posterior fossa and 3 mm thick sections through the remaining calvarium. Study is performed within 24 hours of arrival to the hosp ital. No abnormal hyperdensity is present to suggest an acute intracranial hemorrhage. No mass lesion is evident. No acute infarcts are evident. Periventricular white matter hypodensity is present, likely on the bas is of chronic white matter ischemic changes. There is an old left superior cerebellar infarct ex vacu o effect. There is prominence of the extra-axial space greater on the left than the right. Temporal h orn dilatation is not evident. Ventricles and sulci are prominent for the patient age. Paranasal sinuses and mastoid air cells within the [id number] are clear. COMPARISON: Findings are stable from 09/17/2018 IMPRESSIONS: 1. Atrophy. 2. Periventricular white matter ischemic changes. 3. Old cerebellar infarct
--- NOTE | 2018-09-26 18:12 | XR ---
EXAMINATION TYPE: XR chest 1V DATE OF EXAM: 09/26/2018 COMPARISON: 09/16/2018 INDICATION: Altered mental status TECHNIQUE: Single frontal view of the chest is obtained. FINDINGS: The heart size is normal. The pulmonary vasculature is normal. The lungs are clear. There is hyperinflation. Sternotomy wires are in the midline. EKG leads overlie the chest. IMPRESSION: 1. No acute pulmonary process.
[2018-09-26 18:14] LABS: Creatine Kinase MB 4.4 ng/mL (0.0-2.4); Troponin I 0.019 ng/mL (0.000-0.034)
[2018-09-26] MEDS ORDERED: LORazepam 2 MG/ML INJ IV STA (18:46)
[2018-09-26] MEDS ORDERED: NALOXONE 0.4 MG/ML 1 ML VIAL IV PRN (18:52)
[2018-09-26] MEDS ORDERED: ARTIFICIAL TEARS-HYPROMELLOSE DROPS 15 ML BTL BOTH EYES PRN (18:54)
[2018-09-26] MEDS ORDERED: IPRATROPIUM-ALBUTEROL 3 ML NEB INHALATION PRN (18:54)
[2018-09-26] MEDS ORDERED: Acetaminophen-Codeine 300-30mg TAB PO PRN (18:54)
[2018-09-26] MEDS: BUDESONIDE 0.5 MG/2 ML NEBU INHALATION SCH (20:14)
[2018-09-26] MEDS ORDERED: SENNOSIDES-DOCUSATE SODIUM 1 EACH TAB PO SCH (21:00)
[2018-09-26] MEDS: FORMOTEROL FUMARATE 20 MCG/2 ML NEBU INHALATION SCH (21:32)
[2018-09-26 21:43] VITALS: RESP 18
[2018-09-26] MEDS: SODIUM CHLORIDE 0.9% 1,000 ML IV SCH (21:49)
[2018-09-26] MEDS: MEMANTINE 10 MG TAB PO SCH (21:50)
[2018-09-26] MEDS: CLOTRIMAZOLE 1% CREAM 15 GM TUBE TOPICAL SCH (21:51)
[2018-09-27] MEDS: CEPHALEXIN 500 MG CAP PO SCH ×2 (00:03→10:03)
[2018-09-27] MEDS: BUDESONIDE 0.5 MG/2 ML NEBU INHALATION SCH (07:20)
[2018-09-27] MEDS: FORMOTEROL FUMARATE 20 MCG/2 ML NEBU INHALATION SCH (07:20)
[2018-09-27] MEDS ORDERED: VIT A,C & E-LUTEIN-MINERALS 1 EACH TAB PO SCH (09:00)
[2018-09-27] MEDS ORDERED: ASPIRIN 81 MG PO SCH (09:00)
[2018-09-27] MEDS ORDERED: RIVAROXABAN 10 MG TAB PO SCH (09:00)
[2018-09-27] MEDS ORDERED: ISOSORBIDE MONONITRATE ER 30 MG TAB.ER.24H PO SCH (09:00)
[2018-09-27] MEDS ORDERED: TAMSULOSIN 0.4 MG CAP.ER.24H PO SCH (09:00)
[2018-09-27] MEDS ORDERED: amLODIPine 10 MG TAB PO SCH (09:00)
[2018-09-27] MEDS ORDERED: FAMOTIDINE 20 MG TAB PO SCH (09:00)
[2018-09-27] MEDS ORDERED: FERROUS SULFATE 325 MG TAB PO SCH (09:00)
[2018-09-27] MEDS ORDERED: ATORVASTATIN 40 MG TAB PO SCH (09:00)
[2018-09-27] MEDS: MEMANTINE 10 MG TAB PO SCH (10:02)
[2018-09-27] MEDS: CLOTRIMAZOLE 1% CREAM 15 GM TUBE TOPICAL SCH (11:01)
[2018-09-27] MEDS ORDERED: QUEtiapine 25 MG TAB PO PRN (11:23)
[2018-09-27] MEDS ORDERED: ACETAMINOPHEN TAB 325 MG TAB PO PRN (11:27)
[2018-09-27] MEDS ORDERED: DEXTROSE 5%-0.2% NACL 1,000 ML IV SCH (11:30)
[2018-09-27] MEDS ORDERED: CYANOCOBALAMIN 500 MCG TAB PO SCH (12:00)
[2018-09-27] MEDS ORDERED: HALOPERIDOL LACTATE 5 MG/ML 1 ML VIAL IM PRN (12:01)
[2018-09-27 13:20] VITALS: BMI 18.2
[2018-09-27] MEDS: SODIUM CHLORIDE 0.9% 1,000 ML IV SCH (13:46)
--- NOTE | 2018-09-27 13:49 | P.HPIM ---
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 Patient appears to have had a syncopal episode believed to have stroke because of which patient was transferred to ER here in the ER patient underwent workup with brain CT which showed significant microvascular ischemic changes which are old. No acute changes and patient is found to be severely dehydrated with the hypovolemic hypernatremia started on IV fluids and was subsequently admitted patient is on Keflex for UTI in the past patient does not have any fever or leukocytosis I do not believe patient has any infection going on patient is quite a bit agitated these episodes are pretty common for him. Because of dehydration his agitation episodes of more often and frequent and severe. was switched to D5 0.22 with normal saline because of his hypernatremia and hyperchloremia from severe dehydration patient has very low muscle mass with creatinine of 1.13. Patient has advancing dementia can only occasionally recognize his . Patient's prognosis is extremely poor definitely less than 6 months most probably 1-2 months had falls in the past. Because of this I had extensive discussion with the . Patient was made DO NOT RESUSCITATE hospice will be consulted. The only appropriate management for this patient will be hospice care. is agreeable with that. Review of Systems Unable to obtain at this time Past Medical History Past Medical History: COPD, CVA/TIA, Dementia, GERD/Reflux, Hyperlipidemia, Hypertension, Myocardial Infarction ([place]) Additional Past Medical History / Comment(s): dementia diagnosed 2014, acute renal failure , e cloi in blood 12-08-15, sepsis(per micro) BPH with chronic incomplete bladder emptying Last Myocardial Infarction Date:: 2000 History of Any Multi-Drug Resistant Organisms: None Reported Past Surgical History: Coronary Bypass/CABG, Hernia Repair, Orthopedic Surgery Additional Past Surgical History / Comment(s): heart surgery in 2001, lt ear titanium implant, lt scalp skin lesion removed wed-no result on it yet, four hernia repair, right Hip replacement Past Anesthesia/Blood Transfusion Reactions: No Reported Reaction Additional Past Anesthesia/Blood Transfusion Reaction / Comment(s): ? possible urinary retention post op Past Psychological History: No Psychological Hx Reported Smoking Status: Former smoker Past Alcohol Use History: None Reported Additional Past Alcohol Use History / Comment(s): smoked x 50 years, 1 ppd, quit 2000 Past Drug Use History: None Reported - Past Family History Father Family Medical History: Congestive Heart Failure (CHF) Mother Family Medical History: Pneumonia Additional Family Medical History / Comment(s): mom lived to be age 94 from complications of pne Medications and Allergies Home Medications Medication Instructions Recorded Confirmed Type Aspirin 81 mg PO DAILY 12/08/15 09/26/18 History Cyanocobalamin [Vitamin B-12] 1,000 mcg PO DAILY 12/08/15 09/26/18 History Isosorbide Mononitrate [Isosorbide 30 mg PO DAILY 12/08/15 09/26/18 History Mononitrate ER] Memantine [Namenda] 10 mg PO BID 12/08/15 09/26/18 History Vit C/E/Zn/Coppr/Lutein/Zeaxan 1 cap PO DAILY 12/08/15 09/26/18 History [Preservision Areds 2 Softgel] Ferrous Sulfate [Iron (65 MG 325 mg PO DAILY 10/10/16 09/26/18 History Elemental)] Tamsulosin [Flomax] 0.4 mg PO DAILY #30 cap 10/11/16 09/26/18 Rx Atorvastatin [Lipitor] 40 mg PO HS 03/29/18 09/27/18 History Ipratropium-Albuterol Nebulize 3 ml INHALATION RT-QID PRN 03/29/18 09/26/18 History [Duoneb 0.5 mg-3 mg/3 ml Soln] Acetaminophen-Codeine 300-30mg 1 - 2 tab PO Q4-6H PRN 7 Days #50 09/21/18 Rx [Tylenol w/codeine #3] tablet Artificial Tears-Hypromellose 2 drops BOTH EYES QID PRN bottle 09/21/18 Rx [Artificial Tear Drops] Famotidine [Pepcid] 20 mg PO DAILY tab 09/21/18 09/26/18 Rx Metoprolol Tartrate [Lopressor] 25 mg PO BID tab 09/21/18 09/26/18 Rx amLODIPine [Norvasc] 10 mg PO DAILY tab 09/21/18 09/26/18 Rx Acetaminophen Tab [Tylenol Tab] 650 mg PO Q4H PRN 09/27/18 09/27/18 History Cephalexin [Keflex] 500 mg PO Q12HR 09/27/18 09/27/18 History Rivaroxaban [Xarelto] 10 mg PO HS 09/27/18 09/27/18 History Sennosides-Docusate Sodium 2 tab PO HS 09/27/18 09/27/18 History [Senokot-S] Allergies Allergy/AdvReac Type Severity Reaction Status Date / Time No Known Allergies Allergy Verified 09/27/18 08:55 Physical Exam Vitals: Vital Signs Temp Pulse Pulse Resp BP BP Pulse Ox 09/26/18 21:42 97.9 F 75 18 117/56 95 09/26/18 20:14 97.0 F L 74 22 105/92 96 09/26/18 19:42 77 21 111/63 96 09/26/18 19:00 75 20 107/73 09/26/18 18:30 80 22 134/101 95 09/26/18 18:14 82 22 115/92 96 09/26/18 16:38 97.7 F 82 18 121/65 95 Intake and Output 09/26/18 09/27/18 09/27/18 22:59 06:59 14:59 Intake Total 200 Output Total 1000 Balance -800 Intake: Oral 200 Output: Urine 1000 Uretheral (Antonio) 500 Other: Voiding Method Diaper Diaper Incontinent Incontinent # Voids 0 # Bowel Movements 1 Weight 54.431 kg 54.431 kg PHYSICAL EXAMINATION: GENERAL: Patient is alert probably oriented 0 agitated has soft restraints which I tried to get rid of. Completely confused thin built dry mucous membranes loss of skin turgor HEENT: Pupils are round and equally reacting to light. EOMI. No scleral icterus. No conjunctival pallor. Normocephalic, atraumatic. No pharyngeal erythema. No thyromegaly. CARDIOVASCULAR: S1 and S2 present. No murmurs, rubs, or gallops. PULMONARY: Chest is clear to auscultation, no wheezing or crackles. ABDOMEN: Soft, nontender, nondistended, normoactive bowel sounds. No palpable organomegaly. MUSCULOSKELETAL: No joint swelling or deformity. EXTREMITIES: No cyanosis, clubbing, or pedal edema. NEUROLOGICAL: Gross neurological examination did not reveal any focal deficits. SKIN: No rashes. Significant bruise in the right hip area where he had surgery in the past Results CBC & Chem 7: 09/26/18 17:21 18 17:21 Labs: Abnormal Lab Results - Last 24 Hours (Table) 18 09/26/18 09/26/18 Range/Units 17:21 17:21 17:21 WBC 10.7 H (3.8-10.6) k/uL RBC 3.46 L (4.30-5.90) m/uL Hgb 11.1 L (13.0-17.5) gm/dL Hct 34.1 L (39.0-53.0) % Neutrophils # 9.4 H (1.3-7.7) k/uL Lymphocytes # 0.6 L (1.0-4.8) k/uL Sodium 155 H (137-145) mmol/L Chloride 126 H (98-107) mmol/L BUN 61 H (9-20) mg/dL Glucose 138 H (74-99) mg/dL Magnesium 2.5 H (1.6-2.3) mg/dL Total Bilirubin 1.4 H (0.2-1.3) mg/dL Total Creatine Kinase 604 H (55-170) U/L CK-MB (CK-2) 4.4 H (0.0-2.4) ng/mL Total Protein 5.3 L (6.3-8.2) g/dL Albumin 3.0 L (3.5-5.0) g/dL Urine Protein (Negative) Urine Blood (Negative) Urine RBC (0-5) /hpf Amorphous Sediment (None) /hpf Hyaline Casts (0-2) /lpf Urine Mucus (None) /hpf 09/26/18 Range/Units 17:21 WBC (3.8-10.6) k/uL RBC (4.30-5.90) m/uL Hgb (13.0-17.5) gm/dL Hct (39.0-53.0) % Neutrophils # (1.3-7.7) k/uL Lymphocytes # (1.0-4.8) k/uL Sodium (137-145) mmol/L Chloride (98-107) mmol/L BUN (9-20) mg/dL Glucose (74-99) mg/dL Magnesium (1.6-2.3) mg/dL Total Bilirubin (0.2-1.3) mg/dL Total Creatine Kinase (55-170) U/L CK-MB (CK-2) (0.0-2.4) ng/mL Total Protein (6.3-8.2) g/dL Albumin (3.5-5.0) g/dL Urine Protein 1+ H (Negative) Urine Blood Large H (Negative) Urine RBC 143 H (0-5) /hpf Amorphous Sediment Occasional H (None) /hpf Hyaline Casts 15 H (0-2) /lpf Urine Mucus Rare H (None) /hpf Thrombosis Risk Factor Assmnt - Choose All That Apply Any of the Below Risk Factors Present?: Yes Each Factor Represents 1 point: Medical pt on bed rest Other Risk Factors: Yes Each Risk Factor Represents 3 Points: Age 75 years or older Other congenital or acquired thrombophilia - If yes, enter type in comment: No Thrombosis Risk Factor Assessment Total Risk Factor Score: 4 Thrombosis Risk Factor Assessment Level: Moderate Risk Assessment and Plan Plan: Metabolic encephalopathy: Secondary to severe intravascular volume depletion dehydration and probable syncope from that. Patient will be on IV fluids as mentioned above. Will consult hospice as mentioned above. Patient does not have any evidence of infection at this time -Advanced dementia most probably dementia of Alzheimer's type and/or vascular dementia. Prognosis is extremely poor supportive care hospice was consulted -Hyponatremia: Hypovolemic hypernatremia -Acute renal failure IV fluids as mentioned above. -CVA in the past next and-gastric reflux disease -Hyperlipidemia -Hypertension -Coronary artery disease with a CABG in the past CODE STATUS: DO NOT RESUSCITATE
[2018-09-27 16:53] VITALS: BP 106/59; PULSE 66; TEMP 98.6
[2018-09-27] MEDS ORDERED: HEPARIN SODIUM,PORCINE 5,000 UNIT/ML 1 ML VIAL SQ SCH (21:00)
--- NOTE | 2018-09-29 13:19 | P.DS ---
Providers Date of admission: 09/26/18 18:52 Expected date of discharge: 09/27/18 Attending physician: Martín Vanessa Primary care physician: Martín Vanessa Hospital Course: Patient was subsequently evaluated by hospice services subsequently was made hospice please refer to my dictation of HPI for further details. Patient is being admitted as general inpatient hospice Patient Condition at Discharge: Stable Plan - Discharge Summary Discharge Rx Participant: No New Discharge Prescriptions: No Action Vit C/E/Zn/Coppr/Lutein/Zeaxan [Preservision Areds 2 Softgel] 1 cap PO DAILY Isosorbide Mononitrate [Isosorbide Mononitrate ER] 30 mg PO DAILY Cyanocobalamin [Vitamin B-12] 1,000 mcg PO DAILY Aspirin 81 mg PO DAILY Memantine [Namenda] 10 mg PO BID Ferrous Sulfate [Iron (65 MG Elemental)] 325 mg PO DAILY Tamsulosin [Flomax] 0.4 mg PO DAILY #30 cap Ipratropium-Albuterol Nebulize [Duoneb 0.5 mg-3 mg/3 ml Soln] 3 ml INHALATION RT-QID PRN PRN Reason: Shortness Of Breath Atorvastatin [Lipitor] 40 mg PO HS Acetaminophen-Codeine 300-30mg [Tylenol w/codeine #3] 1 - 2 tab PO Q4-6H PRN 7 Days #50 tablet PRN Reason: Pain amLODIPine [Norvasc] 10 mg PO DAILY tab Artificial Tears-Hypromellose [Artificial Tear Drops] 2 drops BOTH EYES QID PRN bottle PRN Reason: Dry Eye(S) Famotidine [Pepcid] 20 mg PO DAILY tab Metoprolol Tartrate [Lopressor] 25 mg PO BID tab Acetaminophen Tab [Tylenol Tab] 650 mg PO Q4H PRN PRN Reason: Pain Rivaroxaban [Xarelto] 10 mg PO HS Cephalexin [Keflex] 500 mg PO Q12HR Sennosides-Docusate Sodium [Senokot-S] 2 tab PO HS Discharge Medication List Aspirin 81 mg PO DAILY 12/08/15 [History] Cyanocobalamin [Vitamin B-12] 1,000 mcg PO DAILY 12/08/15 [History] Isosorbide Mononitrate [Isosorbide Mononitrate ER] 30 mg PO DAILY 12/08/15 [ History] Memantine [Namenda] 10 mg PO BID 12/08/15 [History] Vit C/E/Zn/Coppr/Lutein/Zeaxan [Preservision Areds 2 Softgel] 1 cap PO DAILY [History] Ferrous Sulfate [Iron (65 MG Elemental)] 325 mg PO DAILY 10/10/16 [History] Tamsulosin [Flomax] 0.4 mg PO DAILY #30 cap 10/11/16 [Rx] Atorvastatin [Lipitor] 40 mg PO HS 03/29/18 [History] Ipratropium-Albuterol Nebulize [Duoneb 0.5 mg-3 mg/3 ml Soln] 3 ml INHALATION RT -QID PRN 03/29/18 [History] Acetaminophen-Codeine 300-30mg [Tylenol w/codeine #3] 1 - 2 tab PO Q4-6H PRN 7 Days #50 tablet 09/21/18 [Rx] Artificial Tears-Hypromellose [Artificial Tear Drops] 2 drops BOTH EYES QID PRN bottle 09/21/18 [Rx] Famotidine [Pepcid] 20 mg PO DAILY tab 09/21/18 [Rx] Metoprolol Tartrate [Lopressor] 25 mg PO BID tab 09/21/18 [Rx] amLODIPine [Norvasc] 10 mg PO DAILY tab 09/21/18 [Rx] Acetaminophen Tab [Tylenol Tab] 650 mg PO Q4H PRN 09/27/18 [History] Cephalexin [Keflex] 500 mg PO Q12HR 09/27/18 [History] Rivaroxaban [Xarelto] 10 mg PO HS 09/27/18 [History] Sennosides-Docusate Sodium [Senokot-S] 2 tab PO HS 09/27/18 [History] Follow up Appointment(s)/Referral(s): Martín Vanessa MD [Primary Care Provider] - 1-2 days Discharge Disposition: [facility] TO [facility]
== END 2018-09-27 17:38 | disposition hospice, inpatient (51) | DRG 640 ==
LOC: EC 16:27 → 4MS4W 18:52
PROVIDERS: ADMIT Family Medicine; ATTEND Family Medicine
DX: E86.0 Dehydration (principal); G93.41 Metabolic encephalopathy; F05 Delirium due to known physiological condition; N17.9 Acute kidney failure, unspecified; E87.0 Hyperosmolality and hypernatremia; E78.5 Hyperlipidemia, unspecified; E86.1 Hypovolemia; E87.8 Other disorders of electrolyte and fluid balance, not elsewhere classified; F01.50 Vascular dementia, unspecified severity, without behavioral disturbance, psychotic disturbance, mood disturbance, and anxiety; F02.80 Dementia in other diseases classified elsewhere, unspecified severity, without behavioral disturbance, psychotic disturbance, mood disturbance, and anxiety; G30.9 Alzheimer's disease, unspecified; I10 Essential (primary) hypertension; I25.10 Atherosclerotic heart disease of native coronary artery without angina pectoris; I25.2 Old myocardial infarction; J44.9 Chronic obstructive pulmonary disease, unspecified; K21.9 Gastro-esophageal reflux disease without esophagitis; N40.0 Benign prostatic hyperplasia without lower urinary tract symptoms; W05.0XXA Fall from non-moving wheelchair, initial encounter; Z51.5 Encounter for palliative care; Z66 Do not resuscitate; Z79.01 Long term (current) use of anticoagulants; Z79.82 Long term (current) use of aspirin; Z79.899 Other long term (current) drug therapy; Z82.49 Family history of ischemic heart disease and other diseases of the circulatory system; Z86.73 Personal history of transient ischemic attack (TIA), and cerebral infarction without residual deficits; Z87.440 Personal history of urinary (tract) infections; Z87.891 Personal history of nicotine dependence; Z95.1 Presence of aortocoronary bypass graft; Z96.641 Presence of right artificial hip joint
CPT/HCPCS: 36415; 70450; 71045; 80053; 81001; 82150; 82550; 82553; 83690; 83735; 84484; 85025; 93005; 96361; 96374; 99285

== ENCOUNTER 2018-09-27 17:44 | Inpatient (IN) | payer MEDICAID, OTHER ==
[2018-09-27] MEDS ORDERED: MORPHINE SULFATE 2 MG/ML SYRINGE IV PRN (18:30)
[2018-09-27] MEDS ORDERED: ONDANSETRON 4 MG/2 ML VIAL IVP PRN (18:30)
[2018-09-27] MEDS ORDERED: DRY MOUTH SPRAY 44.3 SPRAY/44.3 ML SPRAY MUCOUS MEM PRN (18:30)
[2018-09-27] MEDS ORDERED: ACETAMINOPHEN IV (For NPO) 1,000 MG in EMPTY BAG 1 BAG IVPB ONE (18:30)
[2018-09-27] MEDS ORDERED: ATROPINE OPHTH SOLN 1% 5ML BTL SUBLINGUAL PRN (18:30)
[2018-09-27] MEDS ORDERED: LORazepam 2 MG/ML INJ IV PRN (18:30)
[2018-09-27] MEDS: MORPHINE SULFATE (100 MG/2 ML) 100 MG in SODIUM CHLORIDE 0.9% 100 ML IV SCH (19:17)
[2018-09-28 08:54] VITALS: BMI 18.2
--- NOTE | 2018-09-28 15:35 | P.HPIM ---
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 Patient appears to have had a syncopal episode believed to have stroke because of which patient was transferred to ER here in the ER patient underwent workup with brain CT which showed significant microvascular ischemic changes which are old. No acute changes and patient is found to be severely dehydrated with the hypovolemic hypernatremia started on IV fluids and was subsequently admitted patient is on Keflex for UTI in the past patient does not have any fever or leukocytosis I do not believe patient has any infection going on patient is quite a bit agitated these episodes are pretty common for him. Because of dehydration his agitation episodes of more often and frequent and severe. was switched to D5 0.22 with normal saline because of his hypernatremia and hyperchloremia from severe dehydration patient has very low muscle mass with creatinine of 1.13. Patient has advancing dementia can only occasionally recognize his . Patient's prognosis is extremely poor definitely less than 6 months most probably 1-2 months had falls in the past. Because of this I had extensive discussion with the . Patient was made DO NOT RESUSCITATE hospice will be consulted. The only appropriate management for this patient will be hospice care. is agreeable with that. Family had informational hospice meeting. /family changed patient to no code, no CPR, no intubation with hospice/comfort care. [facility] hospice at this time. Review of Systems Unable to obtain Past Medical History Past Medical History: COPD, CVA/TIA, Dementia, GERD/Reflux, Hyperlipidemia, Hypertension, Myocardial Infarction (ND) Additional Past Medical History / Comment(s): dementia diagnosed 2014, acute renal failure , e cloi in blood 12-08-15, sepsis(per micro) BPH with chronic incomplete bladder emptying Last Myocardial Infarction Date:: 2000 History of Any Multi-Drug Resistant Organisms: None Reported Past Surgical History: Coronary Bypass/CABG, Hernia Repair, Orthopedic Surgery Additional Past Surgical History / Comment(s): heart surgery in 2001, lt ear titanium implant, lt scalp skin lesion removed wed-no result on it yet, four hernia repair, right Hip replacement Past Anesthesia/Blood Transfusion Reactions: No Reported Reaction Additional Past Anesthesia/Blood Transfusion Reaction / Comment(s): ? possible urinary retention post op Past Psychological History: No Psychological Hx Reported Smoking Status: Unknown if ever smoked Past Alcohol Use History: None Reported Additional Past Alcohol Use History / Comment(s): smoked x 50 years, 1 ppd, quit 2000 Past Drug Use History: None Reported - Past Family History Father Family Medical History: Congestive Heart Failure (CHF) Mother Family Medical History: Pneumonia Additional Family Medical History / Comment(s): mom lived to be age 94 from complications of pne Medications and Allergies Home Medications Medication Instructions Recorded Confirmed Type Aspirin 81 mg PO DAILY 12/08/15 09/27/18 History Cyanocobalamin [Vitamin B-12] 1,000 mcg PO DAILY 12/08/15 09/27/18 History Isosorbide Mononitrate [Isosorbide 30 mg PO DAILY 12/08/15 09/27/18 History Mononitrate ER] Memantine [Namenda] 10 mg PO BID 12/08/15 09/27/18 History Vit C/E/Zn/Coppr/Lutein/Zeaxan 1 cap PO DAILY 12/08/15 09/27/18 History [Preservision Areds 2 Softgel] Ferrous Sulfate [Iron (65 MG 325 mg PO DAILY 10/10/16 09/27/18 History Elemental)] Tamsulosin [Flomax] 0.4 mg PO DAILY #30 cap 10/11/16 09/27/18 Rx Atorvastatin [Lipitor] 40 mg PO HS 03/29/18 09/27/18 History Ipratropium-Albuterol Nebulize 3 ml INHALATION RT-QID PRN 03/29/18 09/27/18 History [Duoneb 0.5 mg-3 mg/3 ml Soln] Acetaminophen-Codeine 300-30mg 1 - 2 tab PO Q4-6H PRN 7 Days #50 09/21/18 Rx [Tylenol w/codeine #3] tablet Artificial Tears-Hypromellose 2 drops BOTH EYES QID PRN bottle 09/21/18 Rx [Artificial Tear Drops] Famotidine [Pepcid] 20 mg PO DAILY tab 09/21/18 09/27/18 Rx Metoprolol Tartrate [Lopressor] 25 mg PO BID tab 09/21/18 09/27/18 Rx amLODIPine [Norvasc] 10 mg PO DAILY tab 09/21/18 09/27/18 Rx Acetaminophen Tab [Tylenol Tab] 650 mg PO Q4H PRN 09/27/18 09/27/18 History Cephalexin [Keflex] 500 mg PO Q12HR 09/27/18 09/27/18 History Rivaroxaban [Xarelto] 10 mg PO HS 09/27/18 09/27/18 History Sennosides-Docusate Sodium 2 tab PO HS 09/27/18 09/27/18 History [Senokot-S] Allergies Allergy/AdvReac Type Severity Reaction Status Date / Time No Known Allergies Allergy Verified 09/27/18 18:58 Physical Exam Vitals: Vital Signs Pulse Resp Pulse Ox 09/28/18 14:20 68 6 L 86 L 09/28/18 07:22 65 9 L Intake and Output 09/28/18 09/28/18 09/28/18 06:59 14:59 22:59 Intake Total 4.318 Output Total 200 Balance -195.682 Intake: Intake, IV Titration 4.318 Amount Morphine Sulfate (100 mg/ 4.318 2 ml) 100 mg In Sodium Chloride 0.9% 100 ml @ 1 MG/HR 1.02 mls/hr IV . Q24H [facility] Rx#:[id number] Output: Urine 200 Other: Weight 54.43 kg GENERAL: Patient appears to be resting comfortably with no agitation, no anxiety , on morphine drip HEENT: Pupils are round and equally reacting to light. EOMI. No scleral icterus. No conjunctival pallor. Normocephalic, atraumatic. CARDIOVASCULAR: S1 and S2 present. No murmurs, rubs, or gallops. PULMONARY: Rhonchorous ABDOMEN: Soft, nontender, nondistended, normoactive bowel sounds. No palpable organomegaly. MUSCULOSKELETAL: No joint swelling or deformity. EXTREMITIES: No cyanosis, clubbing, or pedal edema. NEUROLOGICAL: Unable to assess SKIN: No rashes. Significant bruise in the right hip area where he had surgery in the past Thrombosis Risk Factor Assmnt - Choose All That Apply Any of the Below Risk Factors Present?: Yes Each Factor Represents 1 point: Acute ND, Medical pt on bed rest Other Risk Factors: Yes Each Risk Factor Represents 3 Points: Age 75 years or older Thrombosis Risk Factor Assessment Total Risk Factor Score: 5 Thrombosis Risk Factor Assessment Level: High Risk Assessment and Plan Assessment: Metabolic encephalopathy: Secondary to severe intravascular volume depletion dehydration and probable syncope from that. -Advanced dementia most probably dementia of Alzheimer's type and/or vascular dementia. Prognosis is extremely poor. -Hyponatremia: Hypovolemic hypernatremia -Acute renal failure -CVA in the past next and-gastric reflux disease -Hyperlipidemia -Hypertension -Coronary artery disease with a CABG in the past -CODE STATUS: DO NOT RESUSCITATE -Comfort Care, GIP Hospice Plan: Maintain Comfort care/hospice pathway. Titrate morphine drip to comfort. Currently no family at bedside. The impression and plan of care has been dictated as directed. : I performed a history and examination of this patient, discussed the same with the dictator. I agree with the dictator's note ,documented as a scribe. Any additional findings or plans will be noted. Time taken: 35 minutes
[2018-09-28] MEDS: MORPHINE SULFATE (100 MG/2 ML) 100 MG in SODIUM CHLORIDE 0.9% 100 ML IV SCH (18:34)
[2018-09-30] MEDS: MORPHINE SULFATE (100 MG/2 ML) 100 MG in SODIUM CHLORIDE 0.9% 100 ML IV SCH (03:34)
[2018-09-30 11:15] VITALS: BP 111/56; PULSE 80; TEMP 98.5
--- NOTE | 2018-09-30 21:17 | P.PN ---
Subjective Progress Note Date: 09/29/18 Progress note being dictated for Dr. Gamino. 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 Patient appears to have had a syncopal episode believed to have stroke because of which patient was transferred to ER here in the ER patient underwent workup with brain CT which showed significant microvascular ischemic changes which are old. No acute changes and patient is found to be severely dehydrated with the hypovolemic hypernatremia started on IV fluids and was subsequently admitted patient is on Keflex for UTI in the past patient does not have any fever or leukocytosis I do not believe patient has any infection going on patient is quite a bit agitated these episodes are pretty common for him. Because of dehydration his agitation episodes of more often and frequent and severe. was switched to D5 0.22 with normal saline because of his hypernatremia and hyperchloremia from severe dehydration patient has very low muscle mass with creatinine of 1.13. Patient has advancing dementia can only occasionally recognize his . Patient's prognosis is extremely poor definitely less than 6 months most probably 1-2 months had falls in the past. Because of this I had extensive discussion with the . Patient was made DO NOT RESUSCITATE hospice will be consulted. The only appropriate management for this patient will be hospice care. is agreeable with that. Family had informational hospice meeting. /family changed patient to no code, no CPR, no intubation with hospice/comfort care. [facility] hospice at this time. 09/29/18 [facility] hospice, maintained on morphine drip. Appears comfortable, no agitation. Family at bedside. Objective - Vital Signs Vital signs: Vital Signs Temp 98.5 F 09/30/18 11:14 Pulse 80 09/30/18 11:14 Resp 8 L 09/30/18 15:34 BP 111/56 09/30/18 11:14 Pulse Ox 90 L 09/30/18 11:14 Intake & Output 09/30/18 09/30/18 10/01/18 06:59 18:59 06:59 Intake Total 99 Output Total 350 300 Balance -251 -300 Intake: Intake, IV Titration 99 Amount Morphine Sulfate (100 mg/ 99 2 ml) 100 mg In Sodium Chloride 0.9% 100 ml @ 1 MG/HR 1.02 mls/hr IV . Q24H [facility] Rx#:[id number] Output: Urine 350 300 Other: Voiding Method Indwelling Catheter Indwelling Catheter - Exam GENERAL: Patient appears to be resting comfortably with no agitation, no anxiety , on morphine drip HEENT: Pupils are round and equally reacting to light. EOMI. No scleral icterus. No conjunctival pallor. CARDIOVASCULAR: S1 and S2 present. No murmurs, rubs, or gallops. PULMONARY: Rhonchorous, diminished bases. ABDOMEN: Soft, nontender, nondistended, normoactive bowel sounds. No palpable organomegaly. MUSCULOSKELETAL: No joint swelling or deformity. EXTREMITIES: No cyanosis, clubbing, or pedal edema. NEUROLOGICAL: Unable to assess Assessment and Plan Assessment: Metabolic encephalopathy: Secondary to severe intravascular volume depletion dehydration and probable syncope from that. -Advanced dementia most probably dementia of Alzheimer's type and/or vascular dementia. Prognosis is extremely poor. -Hyponatremia: Hypovolemic hypernatremia -Acute renal failure -CVA in the past next and-gastric reflux disease -Hyperlipidemia -Hypertension -Coronary artery disease with a CABG in the past -CODE STATUS: DO NOT RESUSCITATE -Comfort Care, GIP Hospice Plan: Maintain Comfort care/hospice pathway. Titrate morphine drip to comfort. Family at bedside, updated on plan of care, questions and concerns addressed. Support given. The impression and plan of care has been dictated as directed. : I performed a history and examination of this patient, discussed the same with the dictator. I agree with the dictator's note ,documented as a scribe. Any additional findings or plans will be noted. Time taken: 35 minutes
--- NOTE | 2018-09-30 21:23 | P.PN ---
Subjective Progress Note Date: 09/29/18 Progress note being dictated for Dr. Gamino. 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 Patient appears to have had a syncopal episode believed to have stroke because of which patient was transferred to ER here in the ER patient underwent workup with brain CT which showed significant microvascular ischemic changes which are old. No acute changes and patient is found to be severely dehydrated with the hypovolemic hypernatremia started on IV fluids and was subsequently admitted patient is on Keflex for UTI in the past patient does not have any fever or leukocytosis I do not believe patient has any infection going on patient is quite a bit agitated these episodes are pretty common for him. Because of dehydration his agitation episodes of more often and frequent and severe. was switched to D5 0.22 with normal saline because of his hypernatremia and hyperchloremia from severe dehydration patient has very low muscle mass with creatinine of 1.13. Patient has advancing dementia can only occasionally recognize his . Patient's prognosis is extremely poor definitely less than 6 months most probably 1-2 months had falls in the past. Because of this I had extensive discussion with the . Patient was made DO NOT RESUSCITATE hospice will be consulted. The only appropriate management for this patient will be hospice care. is agreeable with that. Family had informational hospice meeting. /family changed patient to no code, no CPR, no intubation with hospice/comfort care. [facility] hospice at this time. 09/29/18 [facility] hospice, maintained on morphine drip. Appears comfortable, no agitation. Family at bedside. Objective - Vital Signs Vital signs: Vital Signs Intake & Output 09/30/18 09/30/18 10/01/18 06:59 18:59 06:59 Intake Total 99 Output Total 350 300 Balance -251 -300 Intake: Intake, IV Titration 99 Amount Morphine Sulfate (100 mg/ 99 2 ml) 100 mg In Sodium Chloride 0.9% 100 ml @ 1 MG/HR 1.02 mls/hr IV . Q24H [facility] Rx#:[id number] Output: Urine 350 300 Other: Voiding Method Indwelling Catheter Indwelling Catheter - Exam GENERAL: Patient appears to be resting comfortably with no agitation, no anxiety , on morphine drip HEENT: Pupils are round and equally reacting to light. EOMI. No scleral icterus. No conjunctival pallor. CARDIOVASCULAR: S1 and S2 present. No murmurs, rubs, or gallops. PULMONARY: Rhonchorous, diminished bases. ABDOMEN: Soft, nontender, nondistended, normoactive bowel sounds. No palpable organomegaly. MUSCULOSKELETAL: No joint swelling or deformity. EXTREMITIES: No cyanosis, clubbing, or pedal edema. NEUROLOGICAL: Unable to assess Assessment and Plan Assessment: Metabolic encephalopathy: Secondary to severe intravascular volume depletion dehydration and probable syncope from that. -Advanced dementia most probably dementia of Alzheimer's type and/or vascular dementia. Prognosis is extremely poor. -Hyponatremia: Hypovolemic hypernatremia -Acute renal failure -CVA in the past next and-gastric reflux disease -Hyperlipidemia -Hypertension -Coronary artery disease with a CABG in the past -CODE STATUS: DO NOT RESUSCITATE -Comfort Care, GIP Hospice Plan: Maintain Comfort care/hospice pathway. Titrate morphine drip to comfort. Family at bedside, updated on plan of care, questions and concerns addressed. Support given. The impression and plan of care has been dictated as directed. : I performed a history and examination of this patient, discussed the same with the dictator. I agree with the dictator's note ,documented as a scribe. Any additional findings or plans will be noted. Time taken: 35 minutes
--- NOTE | 2018-09-30 21:30 | P.PN ---
Subjective Progress Note Date: 09/30/18 Progress note being dictated for Dr. Gamino. 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 Patient appears to have had a syncopal episode believed to have stroke because of which patient was transferred to ER here in the ER patient underwent workup with brain CT which showed significant microvascular ischemic changes which are old. No acute changes and patient is found to be severely dehydrated with the hypovolemic hypernatremia started on IV fluids and was subsequently admitted patient is on Keflex for UTI in the past patient does not have any fever or leukocytosis I do not believe patient has any infection going on patient is quite a bit agitated these episodes are pretty common for him. Because of dehydration his agitation episodes of more often and frequent and severe. was switched to D5 0.22 with normal saline because of his hypernatremia and hyperchloremia from severe dehydration patient has very low muscle mass with creatinine of 1.13. Patient has advancing dementia can only occasionally recognize his . Patient's prognosis is extremely poor definitely less than 6 months most probably 1-2 months had falls in the past. Because of this I had extensive discussion with the . Patient was made DO NOT RESUSCITATE hospice will be consulted. The only appropriate management for this patient will be hospice care. is agreeable with that. Family had informational hospice meeting. /family changed patient to no code, no CPR, no intubation with hospice/comfort care. [facility] hospice at this time. 09/29/18 [facility] hospice, maintained on morphine drip. Appears comfortable, no agitation. Family at bedside. 09/30/2018 maintained on morphine drip, appears comfortable. family at bedside, discussing transfer to the [facility]. Objective - Vital Signs Vital signs: Vital Signs Temp 98.5 F 09/30/18 11:14 Pulse 80 09/30/18 11:14 Resp 8 L 09/30/18 15:34 BP 111/56 09/30/18 11:14 Pulse Ox 90 L 09/30/18 11:14 Intake & Output 09/30/18 09/30/18 10/01/18 06:59 18:59 06:59 Intake Total 99 Output Total 350 300 Balance -251 -300 Intake: Intake, IV Titration 99 Amount Morphine Sulfate (100 mg/ 99 2 ml) 100 mg In Sodium Chloride 0.9% 100 ml @ 1 MG/HR 1.02 mls/hr IV . Q24H [facility] Rx#:[id number] Output: Urine 350 300 Other: Voiding Method Indwelling Catheter Indwelling Catheter - Exam GENERAL: Patient appears to be resting comfortably with no agitation, no anxiety , on morphine drip CARDIOVASCULAR: S1 and S2 present. No murmurs, rubs, or gallops. PULMONARY: Rhonchorous, diminished bases. ABDOMEN: Soft, nontender, nondistended, normoactive bowel sounds. Assessment and Plan Assessment: Metabolic encephalopathy: Secondary to severe intravascular volume depletion dehydration and probable syncope from that. -Advanced dementia most probably dementia of Alzheimer's type and/or vascular dementia. Prognosis is extremely poor. -Hyponatremia: Hypovolemic hypernatremia -Acute renal failure -CVA in the past next and-gastric reflux disease -Hyperlipidemia -Hypertension -Coronary artery disease with a CABG in the past -CODE STATUS: DO NOT RESUSCITATE -Comfort Care, GIP Hospice Plan: Continue with hospice pathway. Titrate morphine to patient's comfort, no upper limit. Family discussing transfer to [facility]. Questions and concerns addressed, support given. The impression and plan of care has been dictated as directed. : I performed a history and examination of this patient, discussed the same with the dictator. I agree with the dictator's note ,documented as a scribe. Any additional findings or plans will be noted. Time taken: 35 minutes
[2018-10-01 03:12] VITALS: RESP 6
[2018-10-01] MEDS: MORPHINE SULFATE (100 MG/2 ML) 100 MG in SODIUM CHLORIDE 0.9% 100 ML IV SCH ×2 (07:00→08:41)
--- NOTE | 2018-10-01 13:16 | P.DS ---
Providers Date of admission: 09/27/18 17:44 Attending physician: Martín Vanessa Primary care physician: Martín Vanessa Hospital Course: Patient is an 87-year-old gentleman with advanced dementia came in with altered mental status toxic encephalopathy secondary to dehydration. Patient was subsequently made hospice because of his extremity poor prognosis and the low Karnofsky score. Patient is being discharged to hospice facility today and. Physical exam: Patient is lying comfortably without any pain. For his other chronic medical problems hospitalization course please defer to the progress note from yesterday. Plan - Discharge Summary Discharge Rx Participant: No New Discharge Prescriptions: No Action Vit C/E/Zn/Coppr/Lutein/Zeaxan [Preservision Areds 2 Softgel] 1 cap PO DAILY Isosorbide Mononitrate [Isosorbide Mononitrate ER] 30 mg PO DAILY Cyanocobalamin [Vitamin B-12] 1,000 mcg PO DAILY Aspirin 81 mg PO DAILY Memantine [Namenda] 10 mg PO BID Ferrous Sulfate [Iron (65 MG Elemental)] 325 mg PO DAILY Tamsulosin [Flomax] 0.4 mg PO DAILY #30 cap Ipratropium-Albuterol Nebulize [Duoneb 0.5 mg-3 mg/3 ml Soln] 3 ml INHALATION RT-QID PRN PRN Reason: Shortness Of Breath Atorvastatin [Lipitor] 40 mg PO HS Acetaminophen-Codeine 300-30mg [Tylenol w/codeine #3] 1 - 2 tab PO Q4-6H PRN 7 Days #50 tablet PRN Reason: Pain amLODIPine [Norvasc] 10 mg PO DAILY tab Artificial Tears-Hypromellose [Artificial Tear Drops] 2 drops BOTH EYES QID PRN bottle PRN Reason: Dry Eye(S) Famotidine [Pepcid] 20 mg PO DAILY tab Metoprolol Tartrate [Lopressor] 25 mg PO BID tab Acetaminophen Tab [Tylenol Tab] 650 mg PO Q4H PRN PRN Reason: Pain Rivaroxaban [Xarelto] 10 mg PO HS Cephalexin [Keflex] 500 mg PO Q12HR Sennosides-Docusate Sodium [Senokot-S] 2 tab PO HS Discharge Medication List Aspirin 81 mg PO DAILY 12/08/15 [History] Cyanocobalamin [Vitamin B-12] 1,000 mcg PO DAILY 12/08/15 [History] Isosorbide Mononitrate [Isosorbide Mononitrate ER] 30 mg PO DAILY 12/08/15 [ History] Memantine [Namenda] 10 mg PO BID 12/08/15 [History] Vit C/E/Zn/Coppr/Lutein/Zeaxan [Preservision Areds 2 Softgel] 1 cap PO DAILY [History] Ferrous Sulfate [Iron (65 MG Elemental)] 325 mg PO DAILY 10/10/16 [History] Tamsulosin [Flomax] 0.4 mg PO DAILY #30 cap 10/11/16 [Rx] Atorvastatin [Lipitor] 40 mg PO HS 03/29/18 [History] Ipratropium-Albuterol Nebulize [Duoneb 0.5 mg-3 mg/3 ml Soln] 3 ml INHALATION RT -QID PRN 03/29/18 [History] Acetaminophen-Codeine 300-30mg [Tylenol w/codeine #3] 1 - 2 tab PO Q4-6H PRN 7 Days #50 tablet 09/21/18 [Rx] Artificial Tears-Hypromellose [Artificial Tear Drops] 2 drops BOTH EYES QID PRN bottle 09/21/18 [Rx] Famotidine [Pepcid] 20 mg PO DAILY tab 09/21/18 [Rx] Metoprolol Tartrate [Lopressor] 25 mg PO BID tab 09/21/18 [Rx] amLODIPine [Norvasc] 10 mg PO DAILY tab 09/21/18 [Rx] Acetaminophen Tab [Tylenol Tab] 650 mg PO Q4H PRN 09/27/18 [History] Cephalexin [Keflex] 500 mg PO Q12HR 09/27/18 [History] Rivaroxaban [Xarelto] 10 mg PO HS 09/27/18 [History] Sennosides-Docusate Sodium [Senokot-S] 2 tab PO HS 09/27/18 [History]
== END 2018-10-01 14:01 | disposition hospice, inpatient (51) | DRG 951 ==
LOC: 4MS4W 17:44
PROVIDERS: ADMIT Family Medicine; ATTEND Family Medicine
DX: Z51.5 Encounter for palliative care (principal); G92 Toxic encephalopathy; E87.0 Hyperosmolality and hypernatremia; E87.1 Hypo-osmolality and hyponatremia; N17.9 Acute kidney failure, unspecified; E78.5 Hyperlipidemia, unspecified; E86.0 Dehydration; E86.1 Hypovolemia; E87.8 Other disorders of electrolyte and fluid balance, not elsewhere classified; F01.50 Vascular dementia, unspecified severity, without behavioral disturbance, psychotic disturbance, mood disturbance, and anxiety; F02.80 Dementia in other diseases classified elsewhere, unspecified severity, without behavioral disturbance, psychotic disturbance, mood disturbance, and anxiety; G30.9 Alzheimer's disease, unspecified; I10 Essential (primary) hypertension; I25.10 Atherosclerotic heart disease of native coronary artery without angina pectoris; I25.2 Old myocardial infarction; J44.9 Chronic obstructive pulmonary disease, unspecified; K21.9 Gastro-esophageal reflux disease without esophagitis; N40.0 Benign prostatic hyperplasia without lower urinary tract symptoms; Z66 Do not resuscitate; Z79.01 Long term (current) use of anticoagulants; Z79.82 Long term (current) use of aspirin; Z79.899 Other long term (current) drug therapy; Z82.49 Family history of ischemic heart disease and other diseases of the circulatory system; Z86.73 Personal history of transient ischemic attack (TIA), and cerebral infarction without residual deficits; Z87.440 Personal history of urinary (tract) infections; Z95.1 Presence of aortocoronary bypass graft; Z96.21 Cochlear implant status